=== PATIENT | male | born 1955 | race Caucasian/White ===

== ENCOUNTER → 2018-02-06 10:32 | Outpatient (CLI) | payer BC, SELFPAY ==
[2018-02-06 13:21] LABS: ALB/GLOB Ratio 0.8 RATIO (0.9-2.4); AST(SGOT) 22 U/L (15-37); Alanine Aminotransfer ALT/SGPT 34 U/L (16-61); Albumin, Serum 3.4 g/dL (3.2-5.0); Alkaline Phosphatase 41 U/L (45-117); Anion Gap 8 (5-15); BUN 18 mg/dL (7-18); BUN/Creat Ratio 19.1 RATIO (10-20); Calcium,Total 8.8 mg/dL (8.5-10.1); Chloride 102 mmol/L (98-107); Creatinine, Serum 0.94 mg/dL (0.70-1.30); EST Glomerular Filtration Rate 87 mL/min (>60); Est Glom Filt Rate - Afr Amer 105 mL/min (>60); Globulin 4.2 g/dL (2.2-4.2); Glucose 81 mg/dL (74-106); Potassium 4.1 mmol/L (3.5-5.1); Protein, Total 7.6 g/dL (6.4-8.2); Sodium Level 138 mmol/L (136-145)
== END ==
PROVIDERS: Family Provider Family Medicine; PCP Family Medicine
DX: I25.10 Atherosclerotic heart disease of native coronary artery without angina pectoris (principal); I25.2 Old myocardial infarction; I10 Essential (primary) hypertension; E78.5 Hyperlipidemia, unspecified; Z98.61 Coronary angioplasty status
CPT/HCPCS: 36415; 80053

== ENCOUNTER → 2021-02-02 11:15 | Outpatient (CLI) | payer BC, SELFPAY ==
[2021-01-31 14:38] VITALS: BMI 33.3
[2021-02-02 12:05] LABS: Absolute Lymphocyte Count 2.03 X10^3/uL (0.83-4.51); Absolute Neutrophil Count 2.5 X10^3/uL (2.0-7.7); Basophil# 0.03 X10^3/uL; Basophil% 0.6 % (0-1); Eosinophil# 0.17 X10^3/uL; Eosinophils% 3.1 % (0-5); Hematocrit 47.2 % (40-54); Hemoglobin 15.3 g/dL (13.0-16.5); Lymphocyte # 2.03 X10^3/ul (4.0); Lymphocyte % 37.4 % (19-41); Mean Corp Hgb Conc 32.4 g/dL (32-36); Mean Corpuscular Volume 95.5 fL (80-94); Mean Platelet Vol. 9.5 fl (6.2-12.0); Monocyte# 0.72 X10^3/uL; Monocyte% 13.3 % (0-10); NRBC Flagged by Analyzer 0 % (0-5); Neutrophil # 2.46 X10^3/uL (2.7-7.7); Neutrophil % 45.2 % (47-70); Platelet Count 218 K/mm3 (150-450); RBC Distribution Width CV 12.1 % (11.6-14.6); RBC Distribution Width SD 42.5 fl (35.1-43.9); Red Blood Count 4.94 M/mm3 (4.6-6.2); White Blood Count 5.4 K/mm3 (4.4-11.0)
[2021-02-02 12:31] LABS: AST(SGOT) 17 U/L (15-37); Alanine Aminotransfer ALT/SGPT 31 U/L (16-61); Albumin, Serum 3.4 g/dL (3.2-5.0); Alkaline Phosphatase 52 U/L (45-117); Anion Gap 3 (5-15); BUN 21 mg/dL (7-18); BUN/Creat Ratio 18.6 RATIO (10-20); Bilirubin, Direct 0.13 mg/dL (0.00-0.30); Chloride 108 mmol/L (98-107); Cholesterol 214 mg/dL (200); Creatinine, Serum 1.13 mg/dL (0.70-1.30); EST Glomerular Filtration Rate 69 mL/min (>60); Est Glom Filt Rate - Afr Amer 84 mL/min (>60); Globulin 4.3 g/dL (2.2-4.2); Glucose 80 mg/dL (74-106); High Density Lipoprotein 52 mg/dL; Potassium 3.9 mmol/L (3.5-5.1); Protein, Total 7.7 g/dL (6.4-8.2); Sodium Level 140 mmol/L (136-145); Thyroid Stim Hormone (TSH) 0.83 uIU/mL (0.358-3.74); Triglycerides 85 mg/dL; Very Low Density Lipoprotein 17 mg/dL (5-40)
== END ==
PROVIDERS: PCP Family Medicine; Referring Provider Internal Medicine Cardiovascular Disease; Visit Provider Internal Medicine Cardiovascular Disease
DX: E78.00 Pure hypercholesterolemia, unspecified (principal); I25.10 Atherosclerotic heart disease of native coronary artery without angina pectoris; I34.0 Nonrheumatic mitral (valve) insufficiency; I10 Essential (primary) hypertension; Z95.5 Presence of coronary angioplasty implant and graft
CPT/HCPCS: 36415; 80048; 80061; 80076; 84443; 85025

== ENCOUNTER → 2021-02-12 10:53 | Outpatient (CLI) | payer BC, SELFPAY ==
[2021-02-12 10:07] VITALS: BMI 33.0
--- NOTE | 2021-02-12 15:50 | RAD_ITS ---
STUDY: X-RAY CHEST REASON FOR EXAM: Male, 66 years old. pre-operative TECHNIQUE: Frontal and lateral views COMPARISON: None. FINDINGS: The lungs are clear and expanded. There is no demonstrated pleural abnormality. Normal size heart. Normal mediastinum and chanda. Normal visualized pulmonary arteries. Normal visualized aortic arch and descending thoracic aorta. Degenerative changes of the thoracic spine. Normal visualized ribs, clavicles, and shoulders. There is no demonstrated abnormality of the visualized soft tissue structures of the upper abdomen. RAD/Chest PA and Lateral IMPRESSION: Normal x-ray examination of the chest. Electronically Signed: Gage Zuñiga DO at 16:09 EDT Tel [phone], Service support ,
== END ==
PROVIDERS: PCP Family Medicine; Referring Provider Nurse Practitioner Family; Visit Provider Nurse Practitioner Family
DX: I25.10 Atherosclerotic heart disease of native coronary artery without angina pectoris (principal); R07.9 Chest pain, unspecified; Z95.5 Presence of coronary angioplasty implant and graft; I10 Essential (primary) hypertension; E78.00 Pure hypercholesterolemia, unspecified
CPT/HCPCS: 36415; 71046; 84484

== ENCOUNTER → 2021-02-15 10:41 | Outpatient (CLI) | payer BC, SELFPAY ==
[2021-01-31 14:38] VITALS: BMI 33.3
[2021-02-13 12:43] VITALS: BMI 33.0
--- NOTE | 2021-02-15 10:45 | ECHOCS_ITS ---
Reason For Study: CAD/ASHD Procedure This was a 2D Doppler, Color Flow transthoracic echocardiogram. The study was technically difficult. Exam performed in department. Left Ventricle Normal LV size. Left ventricular systolic function is normal. The estimated ejection fraction is 60 %. Stage 1 diastolic dysfunction. No regional wall motion abnormalities noted. Right Ventricle Normal RV size. Normal systolic function. Atria Normal left atrium. Normal right atrium. Mitral Valve Normal mitral valve. Tricuspid Valve Normal tricuspid valve. Mild (1+) tricuspid valve insufficiency. Pulmonary artery systolic pressure is 28 mmHg. Aortic Valve Normal aortic valve. Trisinus/trileaflet aortic valve. Mild (1+) eccentric aortic valve insufficiency. Pulmonic Valve Normal pulmonic valve. Great Vessels Normal aortic root. The pulmonary artery is normal size. Normal inferior vena cava. Pericardium/Pleural No pericardial effusion. Medication Diluted definity 3ml given slow IV push to enhance endocardial definition. MMode/2D Measurements & Calculations LVIDd: 4.5 cm IVSd: 0.81 cm Ao root diam: 3.2 cm LVIDs: 3.1 cm LVPWd: 0.83 cm RVDd: 3.3 cm FS: 31.5 % LAV(MOD-bp): 44.3 ml LVAd ap4: 36.8 cm2 SV(MOD-sp4): 79.0 ml LAV(MOD-bp) Indexed: 21.3 ml/m2 EDV(MOD-sp4): 130.5 ml LAV(MOD-sp2): 44.5 ml EDV(sp4-el): 136.1 ml LAV(MOD-sp4): 44.1 ml LVAs ap4: 20.5 cm2 ESV(MOD-sp4): 51.5 ml ESV(sp4-el): 53.1 ml EF(MOD-sp4): 60.5 % EF(sp4-el): 60.9 % SV(sp4-el): 82.9 ml LA A4 area: 16.3 cm2 LA dimension(2D): 3.5 cm RA A4 area: 13.4 cm2 Time Measurements MV dec time: 0.27 sec Doppler Measurements & Calculations MV E max aman: 64.6 cm/sec Lat Peak E' Aman: 10.8 cm/sec Med Peak E' Aman: 9.7 cm/sec MV A max aman: 75.6 cm/sec E/E' lat: 6.0 E/E' med: 6.7 MV E/A: 0.86 Ao V2 max: 133.6 cm/sec AI max aman: 369.6 cm/sec LV V1 max: 124.5 cm/sec Ao max P.1 mmHg AI max P.6 mmHg LV V1 max P.2 mmHg AI dec slope: 137.6 cm/sec2 AI P1/2t: 786.9 msec PA V2 max: 119.7 cm/sec TR max aman: 248.9 cm/sec TR max P.8 mmHg Interpretation Summary Normal LV size. Left ventricular systolic function is normal. The estimated ejection fraction is 60 %. Stage 1 diastolic dysfunction. Mild (1+) eccentric aortic valve insufficiency. Pulmonary artery systolic pressure is 28 mmHg. Contrast injection was performed. Ordering Physician: Jones Villegas Referring Physician: RONI PHELAN Performed By: Jennie Bass RDCS
--- NOTE | 2021-02-15 16:25 | STRESSREP_ITS ---
Stress Test Report Exercise myocardial perfusion stress test. 66-year-old man with a history of chest pain. Stress protocol: Resting EKG demonstrates normal sinus rhythm with a rate of 64 bpm normal intervals are noted resting blood pressure is 144/82 mmHg. The patient exercised according to the regular Angelo protocol for total duration of 7 minutes. Patient completed 1 minute into stage III of the Angelo protocol the maximum heart rate attained 151 bpm which was 96% of max impacted heart rate the maximum workload was 8.5 metabolic equivalents. At rest there were no ST or T wave changes noted to suggest ischemia at peak exercise 1.[address] changes were noted in lead II, V5 and V6. Approximately [address] changes were noted in lead III and aVF. The above were not diagnostic of ischemia. The patient however experienced chest discomfort on exertion. The above appeared to subside on discontinuation of the exercise. The peak blood pressure was 160/80 mmHg which was a good blood pressure response to exercise. Myocardial perfusion protocol. 14.4 mCi of technetium 99m sestamibi was injected at rest. The patient exer cised according to regular Nagelo protocol for 7 minutes and at peak exercise 44.6 mCi of technetium 99m sestamibi was injected stress images were obtained stress and rest images were reconstructed and compared in the short axis vertical long horizontal long axis. Gated images were also obtained Perfusion SPECT analysis: Review of the stress images demonstrate normal uptake of tracer noted in all areas of the myocardium except for the mid inferior wall with reduced perfusion. The resting images similarly demonstrate normal uptake of tracer noted in all areas of the myocardium with improvement in the mid inferior wall. The above is suggestive of mid inferior ischemia. Gated SPECT analysis: The gated ejection fraction is 63%. Conclusion: Exercise myocardial perfusion stress test with evidence of mid inferior ischemia at a moderate workload. Chest discomfort noted during exercise suggestive of angina. Preserved ejection fraction.
== END ==
PROVIDERS: PCP Family Medicine; Referring Provider Internal Medicine Cardiovascular Disease; Visit Provider Internal Medicine Cardiovascular Disease
DX: I25.10 Atherosclerotic heart disease of native coronary artery without angina pectoris (principal); I34.0 Nonrheumatic mitral (valve) insufficiency; E78.00 Pure hypercholesterolemia, unspecified; I10 Essential (primary) hypertension; Z95.5 Presence of coronary angioplasty implant and graft
CPT/HCPCS: 78452; 93017; 93306; A9500; Q9957; A4216; C8929

== ENCOUNTER 2021-02-21 07:24 | Day surgery (SDC) | payer BC, SELFPAY ==
[2021-02-12 10:07] VITALS: BMI 33.0
[2021-02-13 12:43] VITALS: BMI 33.0
--- NOTE | 2021-02-14 06:00 | HP_ITS ---
ADDENDUM by JEN Joseph on 02/12/21 at 1633 Addendum entered and electronically signed by JEN Lang NP 02/12/21 16:33: Patient's troponin was negative. Due to ongoing exertional chest pain and similar symptoms prior to PCI, he will proceed with left heart catheterization to assess further. HPI History of Present Illness Surgical H&P: Yes Assessment & Plan 1. Atherosclerosis of [place] coronary artery of [place] heart without angina pectoris I25.10 Plan - Bakari Joseph NP, [employer] GR[employer] TE[employer]ER-C Patient expresses concerns regarding symptoms similar to prior stenting. His EKG in office shows normal sinus rhythm at a rate of 62 beats minute, NJ interval 178, and QTc 419. There are no acute ST or T wave changes noted. He is also concerned that his stress test will not occur for approximately 2 weeks. He was asked undergo laboratory evaluation with troponin I to ensure stability. Based on results, further recommendation be made. Orders Orders: 12 Lead EKG performed by BMS Today Left Heart Cath/COR/LV Percut Today Troponin-I Today Chest PA and Lateral Today 2. Presence of stent in coronary artery Z95.5 PTCA/BMS to LXC , to distal RCA and to the instent restenosis of the mid RCA per cath 02/17/13; PTCA/BMS to the RCA 02/08/07 Plan - Bakari Joseph NP, [employer] GRADE TE[employer]ER-C He will continue current medical therapy which includes aspirin and lisinopril. He is not interested in alternative medication such as metoprolol or isosorbide to assist with chest pain. Orders Orders: Left Heart Cath/COR/LV Percut Today Troponin-I Today Chest PA and Lateral Today 3. Essential hypertension I10 Plan - Bakari Joseph NP, [employer] GRADE TE[employer]ER-C His blood pressure is slightly elevated today in office. Thus, on account of chest pain and elevated blood pressure it was recommend to begin isosorbide. He defers at this time. Orders Orders: Left Heart Cath/COR/LV Percut Today Chest PA and Lateral Today 4. Pure hypercholesterolemia E78.00 Plan - Bakari Joseph NP [employer] GR[employer] TE[employer]ER-C He is not on cholesterol-lowering medication. He will continue gfee-cwz-ggzorcc medication as well as risk factor and lifestyle modification. Orders Orders: Left Heart Cath/COR/LV Percut Today Chest PA and Lateral Today Plan Detail Other Orders Orders: 12 Lead EKG performed by BMS Today R07.9 Left Heart Cath/COR/LV Percut Today R07.9 Troponin-I Today R07.9 Chest PA and Lateral Today R07.9 Other Medications New: clopidogrel (Plavix) 75 mg PO QDAY 30 tabs 12RF Additional Comments - Bakari Joseph NP, [employer] GRADE TEACHER-C Thank you for allowing us to participate in the patients plan of care, if you have any questions please do not hesitate to call. This note was generated using a voice recognition system and there may be incorrect words, spelling or punctuation that were not noted when reviewing the office note prior to saving. 02/12/21 1633 <Electronically signed by Bakari Acevedo [employer] GRADE TEACHER-C> Date _ Bakari Joseph NP [employer] GRADE TE[employer]ER-C cc: Dr. Emanuel Rae MD ~* Signed HPI HPI History of Present Illness Details: This is a 66-year-old white male who presents today for outpatient cardiovascular consultation for concerns of symptoms concerning for angina pectoris superimposed upon a history of CAD and PCI, hyperlipidemia, and hypertension. He has undergone cardiovascular evaluation in the past. Based upon medical records obtained for review it appears that he underwent an exercise tolerance test on 07-16-2016. This was performed in [place], [place]. At that point time based upon the nuclear imaging study had suggested a subtle decrease in basal to mid inferolateral activity at rest and with stress suggestive of diaphragmatic attenuation with no significant fixed defects to suggest infarct and no significant reversible defects developing with stress to suggest inducible ischemia. He states yesterday and two days ago noting chest pain located on the left part of his chest with activity, but can also occur at rest. This pain resolved on its own. This lasted for a few hours. This pain does not radiate. He denies secondary symptoms. When this pain occurs he rates it a 5/10 at most. He denies such pain today. In general, these symptoms appear similar to prior stenting. He states yesterday after eating he noted center chest pain as he described at last office visit. He states a pressure feeling and taking his breath away near his throat. Pt denies arm, jaw, or neck discomfort. His exercise tolerance is reduced d/t symptoms/concerns. Pt denies symptoms of CHF, palpitations, lightheadedness, dizziness, near syncopal or syncopal episodes. Pt denies edema or claudication issues. Pt. denies orthopnea, PND, or myalgia. He states moments of dizziness. He states feeling more fatigue than usual that he feels is related to sleep issues. Intake Vital Signs 02/12/21 Height 5 ft 7 in 02/12/21 Weight: 211 lb 02/12/21 BMI 33.0 02/12/21 BP 138/85 H 02/12/21 Blood Pressure Location Lt brachial 02/12/21 Position Sitting 02/12/21 Respiration 18 02/12/21 Pulse 70 02/12/21 Pulse Source Monitor 02/12/21 Pulse Oximetry (%) 95 Intake Visit Reasons: CHEST PAIN, hx stents [employer] Required: No Accompanied by: None Is patient in pain?: No Allergies niacin Adverse Reaction (Severe, Verified 02/12/21 09:55) Hyperpigmentation Jyacpxz-Dsi-Mok Reductase Inhibitor Adverse Reaction (Severe, Verified 02/12/21 09:55) Aches prednisone Adverse Reaction (Unknown, Verified 02/12/21 09:55) Fast HR Medications aspirin 81 mg tablet,delayed release 81 mg PO DAILY 01/29/21 [History Confirmed 02/12/21] cholecalciferol (vitamin D3) 125 mcg (5,000 unit) tablet 125 mcg PO DAILY 01/31/21 [History Confirmed 02/12/21] garlic 5,000 mcg tablet 5 mg PO DAILY 01/31/21 [History Confirmed 02/12/21] lisinopril 10 mg tablet 10 mg PO DAILY #90 tab 01/31/21 [Rx Confirmed 02/12/21] magnesium oxide 500 mg tablet 500 mg PO BID 01/31/21 [History Confirmed 02/12/21] turmeric root extract 1,053 mg tablet 1,076 mg PO BID tab 01/31/21 [History Confirmed 02/12/21] vit C 65 mg-D3 3.15 mcg-vit E 3.35 mg-zinc 1 mg-elderberry chew tablet 1 tab PO .3xw tab 01/31/21 [History Confirmed 02/12/21] [facility] Medical History (Updated 01/31/21 @ 15:[address] Jones Villegas MD) Non-rheumatic mitral regurgitation (Acute) Presence of stent in coronary artery (Chronic) Old myocardial infarction (Acute) Pure hypercholesterolemia (Chronic) Essential hypertension (Chronic) Atherosclerotic heart disease of [place] coronary artery without angina pectoris (Chronic) Surgical History Presence of coronary angioplasty implant and graft (Chronic ~02/17/13) History of umbilical hernia repair (Resolved) S/P left inguinal herniorrhaphy (Resolved ~02/17/13) Family History Uncle CAD (coronary artery disease) Uncle CAD (coronary artery disease) Social History (Updated 02/12/21 @ 12:42 by Bakari Joseph THIRD GRADE TEACHER, [employer]ADE TEACHER-C) Smoking Status: Never smoker alcohol intake: never substance use type: does not use caffeine: Yes ROS Const Const: Positive for fatigue; negative for weakness, body ache, fever(s) or chills ENT ENT: Positive for dizziness Cardio Chest Pain: Yes Palpitations: No Edema: None Muscle aches with walking: None Resp Respiratory: Negative for SOB with activity, SOB at rest, SOB orthopnea\SOB lying down or paroxysmal nocturnal dyspnea GI GI: Negative nausea, vomiting blood/hematemesis, bright, red blood in stools or black,tarry stools : Negative for hematuria or frequent nighttime urination/ nocturia Musc Musc: Negative for muscle aches/ myalgia Skin Skin: Negative non-healing lesions or rash Neuro Neuro: Positive for dizziness; negative for lightheadedness, near syncope, syncope, orthostatic symptoms or weakness Endo Endo: Positive for fatigue Allergy Allergy/Immunology: Negative for rash Cardiology Exam Const Appearance: cooperative, healthy appearing, comfortable and no acute distress Nutritional Appearance: well nourished and obese Orientation: alert, awake and oriented x3 Head Head: normal to inspection Ears: hearing grossly normal bilaterally Nose: external nose normal Face and Sinus: face symmetric Mouth: oral mucosae normal Eyes General: appearance normal, both eyes and all related structures Eyelids: eyelids normal EOM: EOM intact bilaterally Neck Neck: normal visual inspection and no JVD Carotids: normal carotid upstroke Chest Chest inspection: normal inspection of the chest, symmetric chest movement and normal respiratory effort; negative cough Auscultation: Bilateral: Clear to Auscultation Cardio Rate: regular rate Rhythm: regular rhythm Heart sounds: S1 normal and S2 normal; negative rub, gallop or murmur GI GI: normal to inspection and obese Neuro General: alert, awake, oriented x3 and CN's II-XI intact bilaterally Skin Skin: no rashes or lesions noted Extremities Pulses: Normal: Right Posterior Tibial Pulse, Left Posterior Tibial Pulse, Right Radial Pulse, Left Radial Pulse Lower Extremity Edema: None: Bilateral Psych Psychological: normal affect Assessment & Plan 1. Atherosclerosis of [place] coronary artery of [place] heart without angina pectoris I25.10 Plan Patient expresses concerns regarding symptoms similar to prior stenting. His EKG in office shows normal sinus rhythm at a rate of 62 beats minute, NJ interval 178, and QTc 419. There are no acute ST or T wave changes noted. He is also concerned that his stress test will not occur for approximately 2 weeks. He was asked undergo laboratory evaluation with troponin I to ensure stability. Based on results, further recommendation be made. Orders Orders: 12 Lead EKG performed by BMS Today Troponin-I Today 2. Presence of stent in coronary artery Z95.5 PTCA/BMS to LXC , to distal RCA and to the instent restenosis of the mid RCA per cath 02/17/13; PTCA/BMS to the RCA 02/08/07 Plan He will continue current medical therapy which includes aspirin and lisinopril. He is not interested in alternative medication such as metoprolol or isosorbide to assist with chest pain. Orders Orders: Troponin-I Today 3. Essential hypertension I10 Plan His blood pressure is slightly elevated today in office. Thus, on account of chest pain and elevated blood pressure it was recommend to begin isosorbide. He defers at this time. 4. Pure hypercholesterolemia E78.00 Plan He is not on cholesterol-lowering medication. He will continue knim-sya-otkirsg medication as well as risk factor and lifestyle modification. Plan Detail Other Orders Orders: 12 Lead EKG performed by BMS Today R07.9 Troponin-I Today R07.9 Additional Comments Thank you for allowing us to participate in the patients plan of care, if you have any questions please do not hesitate to call. This note was generated using a voice recognition system and there may be incorrect words, spelling or punctuation that were not noted when reviewing the office note prior to saving. Coding Level of Care Code Off vis,est,level 4 Diagnoses Atherosclerosis of [place] coronary artery of [place] heart without angina pectoris I25.10 ??[place] vs. transplanted heart: [place] heart Presence of stent in coronary artery Z95.5 Essential hypertension I10 Pure hypercholesterolemia E78.00 Coding Level of Care Code Off vis,est,level 4 Diagnoses Atherosclerosis of [place] coronary artery of [place] heart without angina pectoris I25.10 ??[place] vs. transplanted heart: [place] heart Presence of stent in coronary artery Z95.5 Essential hypertension I10 Pure hypercholesterolemia E78.00 Supplemental Info Supplemental Information It appears that he has undergone invasive evaluation and care as well in the past. On 02-17-2013 he had a cardiac catheterization/PCI procedure performed at [facility] in [place], [place]. According the report the left main coronary is normal. The LAD had mild luminal irregularities. The LCx had mild tubular narrowing of 70% stenosis and somewhat diffuse disease in the midportion. The RCA had a mid stent with diffuse in-stent restenosis of 60% and a distal stent with 70% stenosis and a PDA with ostial 60 to 70% stenosis. The patient apparently proceeded to what was referred to his left coronary artery stenting with a 3.0x31 Promus medicated stent to the LCx system. He also underwent PTCA/stent with a 2.75 x16 mm Promus element stent to the distal RCA followed by a 3.0 x 24 mm Promus element stent to the mid RCA. Apparently he had remote stenting as well in the past in January 2007 at [facility] with a bare-metal stent to the RCA system. Based upon previous echocardiogram report available for review from 2008 from [facility] the left ventricle was normal with an LVEF of 60%. Labs LDL Cholesterol 145 mg/dL (0-130) H 02/02/21 HDL Cholesterol 52 mg/dL (40-) 02/02/21 Triglycerides 85 mg/dL (-199) 02/02/21 VLDL Cholesterol 17 mg/dL (5-40) 02/02/21 Diagnostics Electrocardiogram 02/12/21
--- NOTE | 2021-02-21 06:00 | HP_ITS ---
ADDENDUM by JEN Joseph on 02/12/21 at 1633 Addendum entered and electronically signed by JEN Lang NP 02/12/21 16:33: Patient's troponin was negative. Due to ongoing exertional chest pain and similar symptoms prior to PCI, he will proceed with left heart catheterization to assess further. HPI History of Present Illness Surgical H&P: Yes Assessment & Plan 1. Atherosclerosis of [place] coronary artery of [place] heart without angina pectoris I25.10 Plan - Bakari Joseph NP, BUSINESS ADMINISTRATION PROGRAM CHAIR-C Patient expresses concerns regarding symptoms similar to prior stenting. His EKG in office shows normal sinus rhythm at a rate of 62 beats minute, MS interval 178, and QTc 419. There are no acute ST or T wave changes noted. He is also concerned that his stress test will not occur for approximately 2 weeks. He was asked undergo laboratory evaluation with troponin I to ensure stability. Based on results, further recommendation be made. Orders Orders: 12 Lead EKG performed by BMS Today Left Heart Cath/COR/LV Percut Today Troponin-I Today Chest PA and Lateral Today 2. Presence of stent in coronary artery Z95.5 PTCA/BMS to LXC , to distal RCA and to the instent restenosis of the mid RCA per cath 02/17/13; PTCA/BMS to the RCA 02/08/07 Plan - Bakari Joseph NP, BUSINESS ADMINISTRATION PROGRAM CHAIR-C He will continue current medical therapy which includes aspirin and lisinopril. He is not interested in alternative medication such as metoprolol or isosorbide to assist with chest pain. Orders Orders: Left Heart Cath/COR/LV Percut Today Troponin-I Today Chest PA and Lateral Today 3. Essential hypertension I10 Plan - Bakari Joseph NP, BUSINESS ADMINISTRATION PROGRAM CHAIR-C His blood pressure is slightly elevated today in office. Thus, on account of chest pain and elevated blood pressure it was recommend to begin isosorbide. He defers at this time. Orders Orders: Left Heart Cath/COR/LV Percut Today Chest PA and Lateral Today 4. Pure hypercholesterolemia E78.00 Plan - Bakari Joseph NP BUSINESS ADMINISTRATION PROGRAM CHAIR-C He is not on cholesterol-lowering medication. He will continue eqqg-smf-gbjaued medication as well as risk factor and lifestyle modification. Orders Orders: Left Heart Cath/COR/LV Percut Today Chest PA and Lateral Today Plan Detail Other Orders Orders: 12 Lead EKG performed by BMS Today R07.9 Left Heart Cath/COR/LV Percut Today R07.9 Troponin-I Today R07.9 Chest PA and Lateral Today R07.9 Other Medications New: clopidogrel (Plavix) 75 mg PO QDAY 30 tabs 12RF Additional Comments - Bakari Joseph NP, BUSINESS ADMINISTRATION PROGRAM CHAIR-C Thank you for allowing us to participate in the patients plan of care, if you have any questions please do not hesitate to call. This note was generated using a voice recognition system and there may be incorrect words, spelling or punctuation that were not noted when reviewing the office note prior to saving. 02/12/21 1633 <Electronically signed by aBkari Acevedo BUSINESS ADMINISTRATION PROGRAM CHAIR-C> Date _ Bakari Joseph NP BUSINESS ADMINISTRATION PROGRAM CHAIR-C cc: Dr. Emanuel Rae MD ~* Signed HPI HPI History of Present Illness Details: This is a 66-year-old white male who presents today for outpatient cardiovascular consultation for concerns of symptoms concerning for angina pectoris superimposed upon a history of CAD and PCI, hyperlipidemia, and hypertension. He has undergone cardiovascular evaluation in the past. Based upon medical records obtained for review it appears that he underwent an exercise tolerance test on 07-16-2016. This was performed in [place], [place]. At that point time based upon the nuclear imaging study had suggested a subtle decrease in basal to mid inferolateral activity at rest and with stress suggestive of diaphragmatic attenuation with no significant fixed defects to suggest infarct and no significant reversible defects developing with stress to suggest inducible ischemia. He states yesterday and two days ago noting chest pain located on the left part of his chest with activity, but can also occur at rest. This pain resolved on its own. This lasted for a few hours. This pain does not radiate. He denies secondary symptoms. When this pain occurs he rates it a 5/10 at most. He denies such pain today. In general, these symptoms appear similar to prior stenting. He states yesterday after eating he noted center chest pain as he described at last office visit. He states a pressure feeling and taking his breath away near his throat. Pt denies arm, jaw, or neck discomfort. His exercise tolerance is reduced d/t symptoms/concerns. Pt denies symptoms of CHF, palpitations, lightheadedness, dizziness, near syncopal or syncopal episodes. Pt denies edema or claudication issues. Pt. denies orthopnea, PND, or myalgia. He states moments of dizziness. He states feeling more fatigue than usual that he feels is related to sleep issues. Intake Vital Signs 02/12/21 Height 5 ft 7 in 02/12/21 Weight: 211 lb 02/12/21 BMI 33.0 02/12/21 BP 138/85 H 02/12/21 Blood Pressure Location Lt brachial 02/12/21 Position Sitting 02/12/21 Respiration 18 02/12/21 Pulse 70 02/12/21 Pulse Source Monitor 02/12/21 Pulse Oximetry (%) 95 Intake Visit Reasons: CHEST PAIN, hx stents Betsy [employer] Molder Required: No Accompanied by: None Is patient in pain?: No Allergies niacin Adverse Reaction (Severe, Verified 02/12/21 09:55) Hyperpigmentation Kyujacl-Csw-Yjv Reductase Inhibitor Adverse Reaction (Severe, Verified 02/12/21 09:55) Aches prednisone Adverse Reaction (Unknown, Verified 02/12/21 09:55) Fast HR Medications aspirin 81 mg tablet,delayed release 81 mg PO DAILY 01/29/21 [History Confirmed 02/12/21] cholecalciferol (vitamin D3) 125 mcg (5,000 unit) tablet 125 mcg PO DAILY 01/31/21 [History Confirmed 02/12/21] garlic 5,000 mcg tablet 5 mg PO DAILY 01/31/21 [History Confirmed 02/12/21] lisinopril 10 mg tablet 10 mg PO DAILY #90 tab 01/31/21 [Rx Confirmed 02/12/21] magnesium oxide 500 mg tablet 500 mg PO BID 01/31/21 [History Confirmed 02/12/21] turmeric root extract 1,053 mg tablet 1,076 mg PO BID tab 01/31/21 [History Confirmed 02/12/21] vit C 65 mg-D3 3.15 mcg-vit E 3.35 mg-zinc 1 mg-elderberry chew tablet 1 tab PO .3xw tab 01/31/21 [History Confirmed 02/12/21] [facility] Medical History (Updated 01/31/21 @ 15:[address] Jones Villegas MD) Non-rheumatic mitral regurgitation (Acute) Presence of stent in coronary artery (Chronic) Old myocardial infarction (Acute) Pure hypercholesterolemia (Chronic) Essential hypertension (Chronic) Atherosclerotic heart disease of [place] coronary artery without angina pectoris (Chronic) Surgical History Presence of coronary angioplasty implant and graft (Chronic ~02/17/13) History of umbilical hernia repair (Resolved) S/P left inguinal herniorrhaphy (Resolved ~02/17/13) Family History Uncle CAD (coronary artery disease) Uncle CAD (coronary artery disease) Social History (Updated 02/12/21 @ 12:42 by Bakari Joseph BUSINESS ADMINISTRATION PROGRAM CHAIR, BUSINESS ADMINISTRATION PROGRAM CHAIR-C) Smoking Status: Never smoker alcohol intake: never substance use type: does not use caffeine: Yes ROS Const Const: Positive for fatigue; negative for weakness, body ache, fever(s) or chills ENT ENT: Positive for dizziness Cardio Chest Pain: Yes Palpitations: No Edema: None Muscle aches with walking: None Resp Respiratory: Negative for SOB with activity, SOB at rest, SOB orthopnea\SOB lying down or paroxysmal nocturnal dyspnea GI GI: Negative nausea, vomiting blood/hematemesis, bright, red blood in stools or black,tarry stools : Negative for hematuria or frequent nighttime urination/ nocturia Musc Musc: Negative for muscle aches/ myalgia Skin Skin: Negative non-healing lesions or rash Neuro Neuro: Positive for dizziness; negative for lightheadedness, near syncope, syncope, orthostatic symptoms or weakness Endo Endo: Positive for fatigue Allergy Allergy/Immunology: Negative for rash Cardiology Exam Const Appearance: cooperative, healthy appearing, comfortable and no acute distress Nutritional Appearance: well nourished and obese Orientation: alert, awake and oriented x3 Head Head: normal to inspection Ears: hearing grossly normal bilaterally Nose: external nose normal Face and Sinus: face symmetric Mouth: oral mucosae normal Eyes General: appearance normal, both eyes and all related structures Eyelids: eyelids normal EOM: EOM intact bilaterally Neck Neck: normal visual inspection and no JVD Carotids: normal carotid upstroke Chest Chest inspection: normal inspection of the chest, symmetric chest movement and normal respiratory effort; negative cough Auscultation: Bilateral: Clear to Auscultation Cardio Rate: regular rate Rhythm: regular rhythm Heart sounds: S1 normal and S2 normal; negative rub, gallop or murmur GI GI: normal to inspection and obese Neuro General: alert, awake, oriented x3 and CN's II-XI intact bilaterally Skin Skin: no rashes or lesions noted Extremities Pulses: Normal: Right Posterior Tibial Pulse, Left Posterior Tibial Pulse, Right Radial Pulse, Left Radial Pulse Lower Extremity Edema: None: Bilateral Psych Psychological: normal affect Assessment & Plan 1. Atherosclerosis of [place] coronary artery of [place] heart without angina pectoris I25.10 Plan Patient expresses concerns regarding symptoms similar to prior stenting. His EKG in office shows normal sinus rhythm at a rate of 62 beats minute, MS interval 178, and QTc 419. There are no acute ST or T wave changes noted. He is also concerned that his stress test will not occur for approximately 2 weeks. He was asked undergo laboratory evaluation with troponin I to ensure stability. Based on results, further recommendation be made. Orders Orders: 12 Lead EKG performed by BMS Today Troponin-I Today 2. Presence of stent in coronary artery Z95.5 PTCA/BMS to LXC , to distal RCA and to the instent restenosis of the mid RCA per cath 02/17/13; PTCA/BMS to the RCA 02/08/07 Plan He will continue current medical therapy which includes aspirin and lisinopril. He is not interested in alternative medication such as metoprolol or isosorbide to assist with chest pain. Orders Orders: Troponin-I Today 3. Essential hypertension I10 Plan His blood pressure is slightly elevated today in office. Thus, on account of chest pain and elevated blood pressure it was recommend to begin isosorbide. He defers at this time. 4. Pure hypercholesterolemia E78.00 Plan He is not on cholesterol-lowering medication. He will continue xjca-xuc-xjlgwbh medication as well as risk factor and lifestyle modification. Plan Detail Other Orders Orders: 12 Lead EKG performed by BMS Today R07.9 Troponin-I Today R07.9 Additional Comments Thank you for allowing us to participate in the patients plan of care, if you have any questions please do not hesitate to call. This note was generated using a voice recognition system and there may be incorrect words, spelling or punctuation that were not noted when reviewing the office note prior to saving. Coding Level of Care Code Off vis,est,level 4 Diagnoses Atherosclerosis of [place] coronary artery of [place] heart without angina pectoris I25.10 ??[place] vs. transplanted heart: [place] heart Presence of stent in coronary artery Z95.5 Essential hypertension I10 Pure hypercholesterolemia E78.00 Coding Level of Care Code Off vis,est,level 4 Diagnoses Atherosclerosis of [place] coronary artery of [place] heart without angina pectoris I25.10 ??[place] vs. transplanted heart: [place] heart Presence of stent in coronary artery Z95.5 Essential hypertension I10 Pure hypercholesterolemia E78.00 Supplemental Info Supplemental Information It appears that he has undergone invasive evaluation and care as well in the past. On 02-17-2013 he had a cardiac catheterization/PCI procedure performed at [facility] in [place], [place]. According the report the left main coronary is normal. The LAD had mild luminal irregularities. The LCx had mild tubular narrowing of 70% stenosis and somewhat diffuse disease in the midportion. The RCA had a mid stent with diffuse in-stent restenosis of 60% and a distal stent with 70% stenosis and a PDA with ostial 60 to 70% stenosis. The patient apparently proceeded to what was referred to his left coronary artery stenting with a 3.0x31 Promus medicated stent to the LCx system. He also underwent PTCA/stent with a 2.75 x16 mm Promus element stent to the distal RCA followed by a 3.0 x 24 mm Promus element stent to the mid RCA. Apparently he had remote stenting as well in the past in January [address] [facility] with a bare-metal stent to the RCA system. Based upon previous echocardiogram report available for review from [address] [facility] the left ventricle was normal with an LVEF of 60%. Labs LDL Cholesterol 145 mg/dL (0-130) H 02/02/21 HDL Cholesterol 52 mg/dL (40-) 02/02/21 Triglycerides 85 mg/dL (-199) 02/02/21 VLDL Cholesterol 17 mg/dL (5-40) 02/02/21 Diagnostics Electrocardiogram 02/12/21
--- NOTE | 2021-02-21 10:10 | CL.D_ITS ---
Patient Name: SERGIO JOSEPH Study Date: 02/21/2021 Performing: Ritesh Read MD Ht: 66.92 inches 170 cm : 1955 Wt: 211.64 lbs 96 kg Age: 66 Gender: male BSA: 2.07 PROCEDURE(S) PERFORMED [id number]/[facility] CLINICAL PROFILE AND INDICATIONS Indications: Worsening Angina Heart Failure: None Stress/Imaging Date: 02/15/21ress Test with SPECT MPI: Positive Intermediate Risk CAD Presentations: Unstable angina. CONCLUSIONS Severe distal left main coronary artery disease, previously placed stent in the circumflex artery pat ent, previously placed stent in the right coronary artery with severe in-stent stenosis. RECOMMENDATIONS Surgery consult for coronary revascularization DESCRIPTION OF PROCEDURE The patient arrived to the procedure lab. The risks and benefits of the procedure as well as a full d escription of our services here and current unavailability of surgical backup were fully explained to the patient and/or their significant other prior to the catheterization. The Timeout was completed, verifying the correct patient and procedure. The patient's procedural site was prepped and draped in the usual fashion. Local anesthetic was given subcutaneously to right radial region with Lidocaine 2% . Using a modified Seldinger technique, arterial access was obtained via the right radial artery, a 6 Fr sheath was inserted. Left Coronary Artery selective angiography was performed in multiple views u sing a 5 Fr. 4.0 [place] catheter. Right Coronary Artery selective angiography was then performed in mu ltiple views using a 5 Fr. 4.0 [place] catheter.The arterial sheath was pulled and a TR Band was applie d for hemostasis. 12cc of air CORONARY ANGIOGRAPHY DOMINANCE: Right Dominant LEFT HEART ASSESSMENT Left Ventricular Ejection Fraction: by Echo pending % Normal Left Ventricular systolic function LEFT MAIN: Distal 95% LEFT ANTERIOR DESCENDING ARTERY: Mild luminal irregularities less than 30% CIRCUMFLEX ARTERY: No significant disease noted MID CIRC: Previously placed stent is patent RIGHT CORONARY ARTERY: PROX RCA: Instent restenosis 90 long % COMPLICATIONS No Complications PROCEDURE MEDICATIONS Fentanyl 50 mcg IV Versed 1 mg IV Oxygen: 2 L/min via nasal cannula Heparin diluted in 23cc Heparinized saline. Patient given 10cc IA of this solution. 02/21/2021 09:46: 29 Verapamil 2.5mg, Ntg 100mcgs, 2000 units of Heparin diluted in 23cc Heparinized saline. Patient give n 10cc IA of this solution. 02/21/2021 09:46:29 SUMMARY OF HEMODYNAMIC DATA Time AIR REST ECG 07:48:16 AO 117/83 (98) SA 09:51:34 Signed By Ritesh Read MD On 02/21/2021 10:09:28 Ritesh Read MD
== END 2021-02-21 12:25 | disposition short-term general hospital (02) ==
LOC: CLSP 07:26
PROVIDERS: PCP Family Medicine; Referring Provider Internal Medicine Cardiovascular Disease; Visit Provider Internal Medicine Cardiovascular Disease
DX: I25.110 Atherosclerotic heart disease of native coronary artery with unstable angina pectoris (principal); T82.855A Stenosis of coronary artery stent, initial encounter; Y71.8 Miscellaneous cardiovascular devices associated with adverse incidents, not elsewhere classified; I10 Essential (primary) hypertension; E78.00 Pure hypercholesterolemia, unspecified; Z79.899 Other long term (current) drug therapy; Z79.82 Long term (current) use of aspirin; Z79.02 Long term (current) use of antithrombotics/antiplatelets; I25.2 Old myocardial infarction
CPT/HCPCS: 93308; 93454; 99152; 99153; J7040; Q9957; A4216; C1769; C1894; C8924

== ENCOUNTER → 2021-06-04 09:35 | Outpatient (CLI) | payer BC, SELFPAY ==
[2021-05-28 11:09] VITALS: BMI 32.1
[2021-06-04 11:00] LABS: Absolute Lymphocyte Count 1.67 X10^3/uL (0.83-4.51); Absolute Neutrophil Count 2.2 X10^3/uL (2.0-7.7); Basophil# 0.03 X10^3/uL; Basophil% 0.6 % (0-1); Eosinophil# 0.31 X10^3/uL; Eosinophils% 6.3 % (0-5); Hemoglobin 14.2 g/dL (13.0-16.5); Lymphocyte # 1.67 X10^3/ul (0.83-4.51); Lymphocyte % 33.7 % (19-41); Mean Corpuscular Hgb 29.5 pg (27.0-32.0); Mean Corpuscular Volume 89.4 fL (80-94); Mean Platelet Vol. 9.4 fl (6.2-12.0); Monocyte% 14.1 % (0-10); NRBC Flagged by Analyzer 0 % (0-5); Neutrophil # 2.24 X10^3/uL (2.7-7.7); Neutrophil % 45.1 % (47-70); Platelet Count 210 K/mm3 (150-450); RBC Distribution Width CV 12.7 % (11.6-14.6); RBC Distribution Width SD 41.9 fl (35.1-43.9); Red Blood Count 4.81 M/mm3 (4.6-6.2)
[2021-06-04 11:09] LABS: Prothrombin Time (Protime)PT. 12.6 SECONDS (11.7-14.9)
[2021-06-04 11:35] LABS: AST(SGOT) 20 U/L (15-37); Alanine Aminotransfer ALT/SGPT 23 U/L (16-61); Albumin, Serum 3.4 g/dL (3.2-5.0); Alkaline Phosphatase 56 U/L (45-117); Anion Gap 5 (5-15); BUN 11 mg/dL (7-18); BUN/Creat Ratio 10.8 RATIO (10-20); Bilirubin, Direct 0.08 mg/dL (0.00-0.30); Chloride 106 mmol/L (98-107); Cholesterol 184 mg/dL (200); Creatinine, Serum 1.02 mg/dL (0.70-1.30); EST Glomerular Filtration Rate 78 mL/min (>60); Est Glom Filt Rate - Afr Amer 95 mL/min (>60); Globulin 4.2 g/dL (2.2-4.2); Glucose 83 mg/dL (74-106); High Density Lipoprotein 56 mg/dL; Protein, Total 7.6 g/dL (6.4-8.2); Sodium Level 136 mmol/L (136-145); Triglycerides 109 mg/dL; Very Low Density Lipoprotein 22 mg/dL (5-40)
== END ==
PROVIDERS: PCP Family Medicine; Referring Provider Internal Medicine Cardiovascular Disease; Visit Provider Internal Medicine Cardiovascular Disease
DX: I35.1 Nonrheumatic aortic (valve) insufficiency (principal); E78.00 Pure hypercholesterolemia, unspecified; I10 Essential (primary) hypertension; R07.9 Chest pain, unspecified; R53.83 Other fatigue; Z95.1 Presence of aortocoronary bypass graft; Z95.5 Presence of coronary angioplasty implant and graft
CPT/HCPCS: 36415; 80048; 80061; 80076; 85025; 85610; 85730

== ENCOUNTER 2021-06-12 06:52 | Day surgery (SDC) | payer BC, SELFPAY ==
[2021-05-28 11:09] VITALS: BMI 32.1
[2021-06-11 09:52] VITALS: BMI 31.6
--- NOTE | 2021-06-11 17:31 | PCM.HP.BLA ---
History and Physical Date of Admission: 06/12/21 [facility] [id number] [place], [place] [phone] OFFICE VISITDate of Service: 05/28/21 MR#:[id number]:[id number]: SERGIO JOSEPHRep #:[id number] Provider: JEN Taylor RoofAge/Sex: 66/M [facility]Signed HPI HPI History of Present Illness Details: This is a 66-year-old white male who presents today for outpatient cardiovascular consultation for concerns of symptoms concerning for angina pectoris superimposed upon a history of CAD, CABG, PCI, hyperlipidemia, hypertension, and CARMEN[place]A with CPAP therapy. He underwent coronary artery bypass grafting x3 on 02/27/2021 with GOMEZ to LAD and Sequential SVG-OM2 and RPDA. His heart catheterization on 02/01/2021 prior to bypass surgery showed severe distal left main coronary artery disease, previously placed stent in the circumflex artery patent, previously placed stent in the right coronary artery with severe in-stent stenosis. Patient states that the first 2 months after bypass surgery he was doing very well. His exercise level was increasing and he was not have any chest discomfort. However, over the last month he notes center chest pain, left-sided chest pain, shoulder blade pain, and axillary pain that radiates into his left upper arm. His overall exercise capacity is reduced. He also notes that his energy level feels reduced. He does acknowledge that his chest discomfort is worse with activity and feels similar prior to bypass surgery, but not as intense. He also acknowledges sleeping with his hands above his head one night and since such time frame has noted tenderness to his left side chest and shoulder blade. He does acknowledge increase in outside yard work. He denies any significant shortness of breath with activity. He does acknowledge short lasting palpitations that he states takes his breath away. He does acknowledge ongoing lightheadedness, dizziness, and presyncope, which are not new or worsening. Intake Vital Signs 05/28/21 11:04 05/28/21 11:09 Height 5 ft 7 in Weight: 202 lb BMI 31.6 32.1 BP 124/76 H Blood Pressure Location Lt brachial Position Sitting Respiration 18 Pulse 65 Pulse Oximetry (%) 98 Intake Visit Reasons: Per JR + PFM :chest pain post CABG Betsy Database Design Analyst Required: No Is patient in pain?: No Allergies niacin Adverse Reaction (Severe, Verified 05/28/21 11:03) Hyperpigmentation Akszals-Lpa-Jrh Reductase Inhibitor Adverse Reaction (Severe, Verified 05/28/21 11:03) Aches prednisone Adverse Reaction (Unknown, Verified 05/28/21 11:03) Fast HR Medications aspirin 81 mg tablet,delayed release 81 mg PO DAILY 01/29/21 [History Confirmed 05/28/21] clopidogrel 75 mg tablet 75 mg PO QDAY #30 tab 02/12/21 [Rx Confirmed 05/28/21] lisinopril 2.5 mg tablet 2.5 mg PO DAILY 03/04/21 [History Confirmed 05/28/21] rosuvastatin 5 mg tablet 5 mg PO DAILY 03/04/21 [History Confirmed 05/28/21] isosorbide mononitrate 30 mg tablet,extended release 24 hr 30 mg PO DAILY #30 tab 05/27/21 [Rx] cholecalciferol (vitamin D3) 10 mcg (400 unit) capsule 10 mcg PO DAILY 05/28/21 [History Confirmed 05/28/21] PFSH Medical History Atherosclerotic heart disease of [place] coronary artery without angina pectoris Essential hypertension Non-rheumatic mitral regurgitation Pure hypercholesterolemia Surgical History H/O coronary artery bypass surgery (02/27/21) History of coronary artery stent placement (02/17/13) History of herniorrhaphy History of left heart catheterization (LHC) (02/21/21) History of umbilical hernia repair Family History Uncle CAD (coronary artery disease) Uncle CAD (coronary artery disease) Social History Smoking Status: Never smoker alcohol intake: never substance use type: does not use caffeine: Yes ROS Const Const: Positive for fatigue; Negative for weakness, body ache, fever(s) or chills ENT ENT: Positive for dizziness; Negative for Nosebleed/epistaxis Cardio Chest Pain: Yes Palpitations: Yes Edema: None Muscle aches with walking: None Resp Respiratory: Positive for SOB with activity; Negative for SOB at rest, SOB orthopnea\SOB lying down, Cough or paroxysmal nocturnal dyspnea GI GI: Negative nausea, vomiting blood/hematemesis, bright, red blood in stools or black,tarry stools : Negative for hematuria or frequent nighttime urination/ nocturia Musc Musc: Negative for muscle aches/ myalgia Skin Skin: Negative non-healing lesions or rash Neuro Neuro: Positive for dizziness, lightheadedness and near syncope; Negative for syncope, orthostatic symptoms or weakness Endo Endo: Positive for fatigue Allergy Allergy/Immunology: Negative for rash Cardiology Exam Const Appearance: cooperative, healthy appearing, comfortable and no acute distress Nutritional Appearance: average body habitus and well nourished Orientation: alert, awake and oriented x3 Head Head: normal to inspection Ears: hearing grossly normal bilaterally Nose: external nose normal Face and Sinus: face symmetric Mouth: oral mucosae normal Eyes General: appearance normal, both eyes and all related structures Eyelids: eyelids normal EOM: EOM intact bilaterally Neck Neck: normal visual inspection and no JVD Carotids: normal carotid upstroke Chest Chest inspection: normal inspection of the chest, symmetric chest movement, midline sternotomy incision, tenderness (Left chest and left shoulder blade) and normal respiratory effort; Negative cough Auscultation: Bilateral: Clear to Auscultation Cardio Rate: regular rate Rhythm: regular rhythm Heart sounds: S1 normal and S2 normal; Negative rub, gallop or murmur GI GI: normal to inspection Neuro General: patient alert, patient awake, patient oriented x3 and CN's II-XI intact bilaterally Skin Skin: no rashes or lesions noted Extremities Pulses: Normal: Right Posterior Tibial Pulse, Left Posterior Tibial Pulse, Right Radial Pulse and Left Radial Pulse Lower Extremity Edema: None: Bilateral Psych Psychological: normal affect Assessment and Plan Assessment and Plan (1) Atherosclerotic heart disease of [place] coronary artery without angina pectoris: Status: Chronic Qualifiers: [place] vs. transplanted heart: [place] heart Qualified Code(s): I25.10 - Atherosclerotic heart disease of [place] coronary artery without angina pectoris Orders: Orders: 12 Lead EKG performed by SITA 05/28/21 Plan - Bakari Joseph CELLOPHANE WRAPPING EXAMINER, CELLOPHANE WRAPPING EXAMINER-C: Patient symptom has typical and atypical features of coronary artery disease. Of concern is that his symptoms appear to be worsening, are worse with exertion, and are similar as to prior to bypass. On account of such concerns, he was asked to undergo a heart catheterization to rule out coronary artery disease component/graft failure as a source of his symptoms. (2) H/O coronary artery bypass surgery: Status: Resolved Comment: CABG x 3: GOMEZ-LAD, Sequential SVG-OM2 and RPDA 02/27/2021 Orders: Orders: 12 Lead EKG performed by BMS 05/28/21 Basic Metabolic Profile (BMP) Today Partial Thromboplast Time Today Prothrombin Time w/INR Today CBC W/Diff, Automated Today Left Heart Cath w/Grafts 06/18/21 Plan - Bakari Joseph CELLOPHANE WRAPPING EXAMINER, CELLOPHANE WRAPPING EXAMINER-C: He will continue current medical therapy which includes aspirin, Plavix, isosorbide, lisinopril, and rosuvastatin. Due to feeling fatigue and lower heart rates at home, he has discontinued metoprolol therapy. We can reconsider initiating such medication based on an ongoing basis based based on overall progress and test results. (3) History of coronary artery stent placement: Status: Resolved Comment: PCI-BMS to the RCA 02/08/07; PCI-DIVINE-LCx w/ 3.0 x 32 mm Promus Stent, ELC-ZDF-Ogynhl RCA w/ 2.75 x 16 mm Promus Stent and DIVINE-Mid RCA w/ 3.0 x 24 mm Promus Stent 02/17/2013 Orders: Orders: 12 Lead EKG performed by BMS 05/28/21 Basic Metabolic Profile (BMP) Today Partial Thromboplast Time Today Prothrombin Time w/INR Today CBC W/Diff, Automated Today Left Heart Cath w/Grafts 06/18/21 Plan - Bakari Joseph CELLOPHANE WRAPPING EXAMINER, CELLOPHANE WRAPPING EXAMINER-C: He will continue risk factor lifestyle modification. (4) Non-rheumatic aortic regurgitation: Status: Acute Orders: Orders: Basic Metabolic Profile (BMP) Today Partial Thromboplast Time Today Prothrombin Time w/INR Today CBC W/Diff, Automated Today Left Heart Cath w/Grafts 06/18/21 Juli Joseph CELLOPHANE WRAPPING EXAMINER, CELLOPHANE WRAPPING EXAMINER-C: His last echocardiogram in January 2021 showed an ejection fraction of 60%, stage I diastolic dysfunction, and mild aortic valve insufficiency. This appears stable on history and exam. At this time, this is thought to not be contributing to his symptoms. We will continue to monitor. (5) Essential hypertension: Status: Chronic Orders: Orders: Basic Metabolic Profile (BMP) Today Partial Thromboplast Time Today Prothrombin Time w/INR Today CBC W/Diff, Automated Today Left Heart Cath w/Grafts 06/18/21 Plan - Bakari Joseph CELLOPHANE WRAPPING EXAMINER, CELLOPHANE WRAPPING EXAMINER-C: Patient's blood pressure is well-controlled. We will continue to monitor. We will not make any medication regimen changes. (6) Pure hypercholesterolemia: Status: Chronic Orders: Orders: Basic Metabolic Profile (BMP) Today Partial Thromboplast Time Today Prothrombin Time w/INR Today CBC W/Diff, Automated Today Left Heart Cath w/Grafts 06/18/21 Plan - Bakari Joseph CELLOPHANE WRAPPING EXAMINER, CELLOPHANE WRAPPING EXAMINER-C: He has previously been intolerant to statin medication. Since his recent bypass, he is started on Crestor therapy and he denies any myalgia. He was asked continue to have his lipid and liver profile evaluated on a routine basis. If his LDL remains greater than 70, options may include such therapy as Repatha or Vascepa to assist with preventing future cardiac events can be considered. Plan Details Other Orders: Orders: Basic Metabolic Profile (BMP) Today R07.9, R53.83 Partial Thromboplast Time Today R07.9, R53.83 Prothrombin Time w/INR Today R07.9, R53.83 CBC W/Diff, Automated Today R07.9, R53.83 Left Heart Cath w/Grafts 06/18/21 R07.9, R53.83 Additional Comments: Thank you for allowing us to participate in the patients plan of care, if you have any questions please do not hesitate to call. This note was generated using a voice recognition system and there may be incorrect words, spelling or punctuation that were not noted when reviewing the office note prior to saving. Follow Up: Keep as is (JHR/PFM) Coding Level of Care Code Off vis,est,level 4 Diagnoses Atherosclerotic heart disease of [place] coronary artery without angina pectoris I25.10 [place] vs. transplanted heart: [place] heart H/O coronary artery bypass surgery Z95.1 History of coronary artery stent placement Z95.5 Non-rheumatic aortic regurgitation I35.1 Essential hypertension I10 Pure hypercholesterolemia E78.00 Coding Level of Care Code Off vis,est,level 4 Diagnoses Atherosclerotic heart disease of [place] coronary artery without angina pectoris I25.10 [place] vs. transplanted heart: [place] heart H/O coronary artery bypass surgery Z95.1 History of coronary artery stent placement Z95.5 Non-rheumatic aortic regurgitation I35.1 Essential hypertension I10 Pure hypercholesterolemia E78.00 Supplemental Info Supplemental Information Heart catheterization from 02/21/2021: CONCLUSIONS Severe distal left main coronary artery disease, previously placed stent in the circumflex artery patent, previously placed stent in the right coronary artery with severe in-stent stenosis. RECOMMENDATIONS Surgery consult for coronary revascularization CORONARY ANGIOGRAPHY DOMINANCE: Right Dominant LEFT HEART ASSESSMENT Left Ventricular Ejection Fraction: by Echo pending % Normal Left Ventricular systolic function LEFT MAIN: Distal 95% LEFT ANTERIOR DESCENDING ARTERY: Mild luminal irregularities less than 30% CIRCUMFLEX ARTERY: No significant disease noted MID CIRC: Previously placed stent is patent RIGHT CORONARY ARTERY: PROX RCA: Instent restenosis 90 long % COMPLICATIONS No Complications CAB02/27/2021: CABG x3 with Dr. Brandon on 02/27/2021 with GOMEZ to mid LAD, Ao-Om2-PDA deq w/ lsvg Stress test on 02/15/2021: Conclusion: Exercise myocardial perfusion stress test with evidence of mid inferior ischemia at a moderate workload. Chest discomfort noted during exercise suggestive of angina. Preserved ejection fraction. Echocardiogram from 02/15/2021: Interpretation Summary Normal LV size. Left ventricular systolic function is normal. The estimated ejection fraction is 60 %. Stage 1 diastolic dysfunction. Mild (1+) eccentric aortic valve insufficiency. Pulmonary artery systolic pressure is 28 mmHg. Contrast injection was performed. Labs: LDL Cholesterol 145 mg/dL (0-130) H HDL Cholesterol 52 mg/dL (40-) Triglycerides 85 mg/dL (-199) VLDL Cholesterol 17 mg/dL (5-40) Diagnostics: Electrocardiogram Echocardiogram Stress Test NM Stress Test Cardiac Catheterization Chest X-Ray Pulmonary: No Data to Display 05/29/21 1323<Electronically signed by Bakari LI>Date Bakari BLAKEC Cosigner Signature:Date (if applicable) CC: Dr. Toby Rae MD ~ The surgeon/proceduralist and patient have discussed in detail the risk of exposure to and/or potential harm posed by the COVID-19 virus with having a surgery/procedure at this time versus the risk of delaying the surgery/procedure. It is not possible to know either the risk of delaying the surgery or procedure or chance of getting an infection with perfect accuracy, but a joint decision was made between the patient and the surgeon/proceduralist to proceed at this time with the scheduled surgery/procedure as indicated on the consent form. I have re-examined the patient. There are no clinical changes since date of exam.
[2021-06-12] VITALS (13 sets, daily range): BP systolic 124–170; BP diastolic 68–92; PULSE 64–85; RESP 16–18; TEMP 36.4–36.8; O2SAT 97–100; BMI 32.4
--- NOTE | 2021-06-12 10:30 | EKG12_ITS ---
Test Reason : POST PCI Blood Pressure : / mmHG Vent. Rate : 075 BPM Atrial Rate : 075 BPM P-R Int : 226 ms QRS Dur : 102 ms QT Int : 406 ms P-R-T Axes : 042 -26 027 degrees QTc Int : 453 ms Sinus rhythm with 1st degree A-V block Confirmed by LEONOR LONG, JONES ([id number]), mapping editor SILAS LEIVA ([id number]) on 06/13/2021 9:09:37 AM Referred By: Jones Galvez Confirmed By:JONES GALVEZ MD
--- NOTE | 2021-06-12 11:03 | CL.I_ITS ---
Patient Name: SERGIO JOSEPH Study Date: 06/12/2021 Performing: Erin Golden MD Ht: 66.92 inches 170 cm : 1955 Wt: 202.83 lbs 92 kg Age: 66 Gender: male BSA: 2.03 PROCEDURE(S) PERFORMED [id number] W OR WO PTCA, SINGLE CORONARY ARTERY [id number] W OR WO PTCA, SINGLE CORONARY ARTERY CLINICAL PROFILE AND CO-MORBIDITIES Indications: Worsening Angina Heart Failure: None Stress/Imaging Stress/Image Study Performed: No CAD Presentations: Unstable angina. CONCLUSIONS Successful PCI with DIVINE to distal LM and OM1 RECOMMENDATIONS DESCRIPTION OF PROCEDURE The patient arrived to the procedure lab. The risks and benefits of the procedure as well as a full d escription of our services here and current unavailability of surgical backup were fully explained to the patient and/or their significant other prior to the catheterization. The Timeout was completed, verifying the correct patient and procedure. The patient's procedural site was prepped and draped in the usual fashion. Local anesthetic was given subcutaneously to right groin region with Lidocaine 2% Using a modified Seldinger technique,arterial access was obtained via the right femoral artery, a 4Fr sheath was inserted Left Coronary Artery selective angiography was performed in multiple views using a 4 Fr. JL5 catheter. Right Coronary Artery selective angiography was then performed in multiple vie ws using a 4 Fr. 3DRC catheter. Left internal mammary artery graft to the LAD selective angiography w as performed in multiple views using a 4 Fr. 3DRC catheter. Sequential Saphenous Vein graft to the OM 2 and RPDA selective angiography was performed in multiple views using a 4 Fr. JR4 c atheter. Left Ventriculography was performed in LARA projection using a 4 Fr. Pigtail catheter. LV to AO pullback pressures were then recorded.The images were reviewed and options discussed. A decision w as then made to proceed with an Intervention, IVUS or other adjunct procedure. Arterial sheath was exchanged for a 6 Fr Sheath. XB 3.5 Guide catheter was inserted and engaged i nto the LCA. BMW Guide wire was advanced to the LAD. Runthrough Guide wire was advanced to the Left m ain. Emerge 2.50x12 Balloon catheter was inserted on BMW wire PTCA balloon inflated at 12 atms for 15 secs. PTCA balloon inflated at 12 atms for 12 secs. PTCA balloon inflated at 11 atms for 12 secs. 2. 50x12 Balloon catheter was placed over Runthrough wire PTCA balloon inflated at 10 atms for 15 secs. PTCA balloon inflated at 10 atms for 10 secs. Angiogram performed post balloon dilatation. Orsiro 2.2 5x13 Drug Eluting stent was inserted. Orsiro 2.5x18 Drug Eluting stent was inserted. Angiogram perfor med post stent deployment. NC Emerge 3.00x8 Balloon catheter was inserted. Angiogram performed post b alloon dilatation. NC Emerge 2.25x8 Balloon catheter was inserted. Angiogram performed post balloon d ilatation. Contrast was injected through the sheath and the Right Iliac and Femoral artery were assessed for possible closure device. The arterial sheath was pulled and a Perclose closure dev ice was deployed for hemostasis INTERVENTION INFORMATION LESION SITE: Left Main (Distal) Lesion Complexity: High/C, chronic total occlusion: No, lesion at bifurcation: Yes, thrombus present: No, lesion length: 15 mm, culprit lesion: Yes, Previously treated lesion: No Pre Stenosis: 90 % Pre intervention DAVID flow: 3 PROCEDURE: Drug Eluting Stent with pre and post dilatation PTCA was performed into the LAD to improve flow in the D1 and the stent was deployed from the LM into the LCx Post Stenosis: 0 % Post intervention DAVID flow: 3 Lesion Devices: Cardinal 6 Fr XB3.5 100cm Guide Catheter Terumo .014 Runthrough Extra Floppy 180cm straight Angel Sci EMERGE MR 2.50x12 BALLOON Biotronik Orsiro MR DIVINE 2.5x18 Angel Sci NC EMERGE MR 3.00x08 BALLOON LESION SITE: 1st OM (Proximal) Lesion Complexity: High/C, chronic total occlusion: No, lesion at bifurcation: Yes, thrombus present: No, lesion length: 11 mm, culprit lesion: Yes, Previously treated lesion: No Pre Stenosis: 90 % Pre intervention DAVID flow: 2 PROCEDURE: Drug Eluting Stent with post dilatation Post Stenosis: 0 % Post intervention DAVID flow: 3 Lesion Devices: Cardinal 6 Fr XB3.5 100cm Guide Catheter Campbell .014 BMW Omar Straight 190cm Biotronik Orsiro MR DIVINE 2.25x13 Angel Sci NC EMERGE MR 2.25x08 BALLOON COMPLICATIONS No Complications PROCEDURE MEDICATIONS Versed 1 mg IV Oxygen: 2 L/min via nasal cannula Brilinta 180 mg PO @ 06/12/2021 09:48:21 Heparin 8000 unit(s) IV 06/12/2021 08:54:00 SUMMARY OF HEMODYNAMIC DATA Time AIR REST ECG 07:25:29 AO 112/65 (87) SA 08:08:32 LV 121/-11, 23 08:22:23 LV 116/-13, 17 08:22:29 LV 115/-9, 20 08:23:11 LV 116/-11, 16 08:23:18 LVp 121/-11, 19 08:23:24 AOp 121/61 (88) 08:23:29 AO 147/74 (103) 08:26:26 Signed By Erin Golden MD On 06/12/2021 11:02:27 AM Erin Golden MD
[2021-06-12] MEDS: 0.9% Normal Saline 1,000 ML 100 ML IV (11:23)
[2021-06-12] MEDS: Acetaminophen 325 MG Tablet 650 MG PO (13:12)
[2021-06-12] MEDS: Lidocaine 2% /Epi 1:100 (20ml) 20 ML VIAL OPERA.SITE (13:13)
--- NOTE | 2021-06-12 13:38 | CRPHASE1 ---
Patient Communication Former Patient:: Phase I PHII Cardiac Rehab Discussed with Patient:: Yes Guide to Cardiac Rehab Given to Patient:: Yes Cardiac Rehab Facility Choice List Given to Patient:: Yes Choice Program [facility] CR PHII:: Communication Given to CR Choice Program Other:: Communication Given to CR Avionics Electronics Technician:: Nelsy Golden Refer Phase II Cardiac Rehab:: Yes Sessions:: 36 sessions - 3 days/wk, 12 weeks - PT HAD BYPASS SURGERY IN JANUARY Cardiac Rehabilitation Info Cardiac Rehabilitation Program Information: Cardiac Rehabilitation is important for patients like you who are recovering from a heart problem. Cardiac rehabilitation programs are recognized as integral to the continued care of the patient with coronary heart disease. The cardiac rehabilitation program is designed to optimize a patient's physical, psychological, and social functioning. Health career development director work in cardiac rehabilitation programs and assist you with getting the treatments you need to get stronger and healthier - like exercise, healthy eating habits, and medications. Cardiac rehabilitation has been show to help people with heart problems live longer and have better life enjoyment than people who do not go to cardiac rehabilitation. Please contact the Cardiac Rehabilitation Program at [facility] at in two weeks if you have not heard from them.
--- NOTE | 2021-06-12 13:39 | CRPH1.INSTRU ---
General Education CAD and cardiac anatomy and function:: Patient communicates acknowledgment, Family communicates acknowledgment Explanation of diagnoses and procedures:: Patient communicates acknowledgment, Family communicates acknowledgment Sign/Symptoms of [place]:: Patient communicates acknowledgment, Family communicates acknowledgment Antiplatelet therapy: Patient communicates acknowledgment, Family communicates acknowledgment Smoking Patient Nicotine/Smoking Risk Factors Are:: Non-smoker Dyslipidemia Patient Dyslipidemia Risk Factors Are:: Total Cholesterol, Triglycerides, HDL, LDL Recommendations Include:: Lipid profile provided, Reviewed NCEP/ATP guidelines, Therapeutic Lifestyle Change dietary guidelines Dyslipidemia Response Code:: Patient communicates acknowledgment Overweight/Obesity Patient Overweight/Obesity Risk Factors Are:: Obesity - > or = 30 Recommendations Include:: Weight loss of 5-10%, Reduced calorie diet Overweight/Obesity:: Patient communicates acknowledgment Hypertension Patient Hypertension Risk Factors Are:: No documented hx of HTN Recommendations Include:: Maintain BP <130/85, DASH dietary guidelines, Decrease/maintain normal body weight Hypertension:: Patient communicates acknowledgment Heart Disease Patient Heart Disease Risk Factors Are:: Family history of heart disease < 65 years old, Previous cardiac event Recommendations Include:: Educated family members of their risk, Educated family members of importance of prevention of heart disease Heart Disease Response Code:: Patient communicates acknowledgment, Family communicates acknowledgment Diabetes Patient Diabetes Risk Factors Are:: No documented hx of diabetes Metabolic Syndrome Patient Metabolic Syndrome Risk Factors Are [3 of 5]:: Fasting blood sugar > 100 mg/dL, Waist circumference > 35 [female] or 40 [male], High triglyceride >150, Hypertension, Low HDL <40 [male] or < 50 [female] Recommendations Include:: Reinforce compliance to risk factor modifications, Encouraged follow-up with Primary Care Physician Metabolic Syndrome Response Code:: Patient communicates acknowledgment Sedentary Patient Sedentary Risk Factors Are:: Lack of regular exercise Recommendations Include:: Aerobic exercise 5-7 times/week for 20-30 minutes continuously, Benefits of regular exercise, Discussed home walking program, Monitored Outpatient Cardiac Rehab Sedentary Response Code:: Patient communicates acknowledgment Stress Patient Stress Risk Factors Are:: Patient denies stress as a risk factor
--- NOTE | 2021-06-12 17:50 | CL.D_ITS ---
Patient Name: SERGIO JOSEPH Study Date: 06/12/2021 Performing: Jones Villegas MD Ht: 67 inches 170 cm : 1955 Wt: 203.1 lbs 92 kg Age: 66 Gender: male BSA: 2.03 PROCEDURE(S) PERFORMED [id number]/LV/CABG [id number] W OR WO PTCA, SINGLE CORONARY ARTERY [id number] W OR WO PTCA, SINGLE CORONARY ARTERY CLINICAL PROFILE AND INDICATIONS Indications: Worsening Angina, Worsening Angina, Suspected CAD Heart Failure: None Stress/Imaging Stress/Image Study Performed: No Stress/Image Study Performed: No Angina Classification Anginal Classification w/in 2 Weeks: CCS III CAD Presentations: Unstable angina. Stable angina. CONCLUSIONS Elevated Left Ventricular End Diastolic Pressure Normal LV size, wall motion,and systolic function LVEF: by LV gram 55 % [place] Multivessel CAD GOMEZ to LAD: patent SVG to OM1 and sequential portion to RPDA: patent RECOMMENDATIONS Risk factor modification Medical therapy Case discussed / reviewed with Dr. Golden of Interventional Cardiology DESCRIPTION OF PROCEDURE The patient arrived to the procedure lab. The risks and benefits of the procedure as well as a full d escription of our services here and current unavailability of surgical backup were fully explained to the patient and/or their significant other prior to the catheterization. The Timeout was completed, verifying the correct patient and procedure. The patient's procedural site was prepped and draped in the usual fashion. Local anesthetic was given subcutaneously to right groin region with Lidocaine 2%. Using a modified Seldinger technique, arterial access was obtained via the right femoral artery, a 4 Fr sheath was inserted Left Coronary Artery selective angiography was performed in multiple views us ing a 4 Fr. JL5 catheter. Right Coronary Artery selective angiography was then performed in multiple views using a 4 Fr. 3DRC catheter. Left internal mammary artery graft to the LAD selective angiograph y was performed in multiple views using a 4 Fr. 3DRC catheter. Sequential Saphenous Vein graft to the OM 2 and RPDA selective angiography was performed in multiple views using a 4 Fr. JR4 c atheter. Left Ventriculography was performed in LARA projection using a 4 Fr. Pigtail catheter. LV to AO pullback pressures were then recorded.Contrast was injected through the sheath and the Right Iliac and Femoral artery were assessed for possible closure device.The arterial sheath was pulled and a Pe rclose closure device was deployed for hemostasis CORONARY ANGIOGRAPHY DOMINANCE: Right Dominant LEFT HEART ASSESSMENT Left Ventricular Ejection Fraction: by LV Gram 55 % Normal LV wall motion Elevated Left Ventricular End Diastolic Pressure LVEDP: 17 mmHg LEFT MAIN: distal: 95 % Stenosis LEFT ANTERIOR DESCENDING ARTERY: OSTIAL LAD: 75 % Stenosis PROX LAD: diffuse: 25 % Stenosis MID LAD: mid to distal vessel filling from antegrade flow but predominantly from GOMEZ graft flow with no angiographically significant appearing disease distal to the graft attachement CIRCUMFLEX ARTERY: OSTIAL CIRC: 75 % Stenosis PROX CIRC: 25 % Stenosis MID CIRC: Previously placed stent is patent OM 1: Proximal - subtotally occluded: filling predominantly from antegrade flow and only partially fr om SVG graft flow RIGHT CORONARY ARTERY: PROX RCA: Previously placed stent has an instent 99 % restenosis with the distal RCA system filling f rom antegrade flow and SVG graft flow GRAFTS: GOMEZ graft to the Mid LAD is patent Saphenous Vein graft to the 1st OM is patent with a sequential portion to the RPDA being patent AORTIC ROOT: Angiographically normal COMPLICATIONS No Complications PROCEDURE MEDICATIONS Versed 1 mg IV Oxygen: 2 L/min via nasal cannula Brilinta 180 mg PO @ 06/12/2021 09:48:21 Heparin 8000 unit(s) IV 06/12/2021 08:54:00 SUMMARY OF HEMODYNAMIC DATA Time AIR REST ECG 07:25:29 AO 112/65 (87) SA 08:08:32 LV 121/-11, 23 08:22:23 LV 116/-13, 17 08:22:29 LV 115/-9, 20 08:23:11 LV 116/-11, 16 08:23:18 LVp 121/-11, 19 08:23:24 AOp 121/61 (88) 08:23:29 AO 147/74 (103) 08:26:26 Signed By Jones Villegas MD On 06/12/2021 17:49:48 Jones Villegas MD
[2021-06-12] MEDS: TICAGRELOR 90 MG TABLET PO (21:30)
[2021-06-12] MEDS: Lisinopril 2.5 MG Tablet PO (23:14)
[2021-06-13 02:59] VITALS: PULSE 76
[2021-06-13 03:00] VITALS: BP 117/72; PULSE 72; RESP 16; TEMP 36.8; O2SAT 100
[2021-06-13 06:58] LABS: Hematocrit 45.9 % (40-54); Hemoglobin 14.6 g/dL (13.0-16.5); Mean Corp Hgb Conc 31.8 g/dL (32-36); Mean Corpuscular Hgb 29.1 pg (27.0-32.0); Mean Corpuscular Volume 91.4 fL (80-94); Mean Platelet Vol. 9.2 fl (6.2-12.0); Platelet Count 192 K/mm3 (150-450); RBC Distribution Width CV 12.9 % (11.6-14.6); RBC Distribution Width SD 43.4 fl (35.1-43.9); Red Blood Count 5.02 M/mm3 (4.6-6.2); White Blood Count 5.9 K/mm3 (4.4-11.0)
[2021-06-13 07:00] VITALS: PULSE 94
[2021-06-13 07:19] LABS: ALB/GLOB Ratio 0.8 RATIO (0.9-2.4); AST(SGOT) 18 U/L (15-37); Alanine Aminotransfer ALT/SGPT 23 U/L (16-61); Albumin, Serum 3.2 g/dL (3.2-5.0); Alkaline Phosphatase 54 U/L (45-117); Anion Gap 7 (5-15); BUN 15 mg/dL (7-18); BUN/Creat Ratio 15.5 RATIO (10-20); Calcium,Total 9.1 mg/dL (8.5-10.1); Chloride 105 mmol/L (98-107); Creatinine, Serum 0.97 mg/dL (0.70-1.30); EST Glomerular Filtration Rate 83 mL/min (>60); Est Glom Filt Rate - Afr Amer 100 mL/min (>60); Estimated Creatinine Clearance 71.93 ml/min; Globulin 4.1 g/dL (2.2-4.2); Glucose 81 mg/dL (74-106); Protein, Total 7.3 g/dL (6.4-8.2); Sodium Level 138 mmol/L (136-145)
[2021-06-13 07:35] VITALS: O2SAT 98
--- NOTE | 2021-06-13 08:52 | PCM.DC ---
Discharge Instructions Diet Discharge Diet: Low fat / Low cholesterol Activity Discharge Activity: May Shower (Today) and May Take a Tub Bath (in 7 days) May resume sexual activity in: 1-2 weeks Weight Bearing Status: - (avoid heavy exertional activity for 7 days then resume normal activity as tolerated) Dressing / Incision Call your doctor if your incision/area has: Continuous Slow Oozing, Sudden Increased Bleeding, Increased Pain/ Swelling, Increased Redness, Foul Smelling Discharge and Swelling at the incision site Call your doctor if you observe: Fever of 101 or Higher, Shortness of breath, Fainting spells, Swelling in the ankles, Chest pain and Increased palpitations (irregular heartbeat) Remove Dressing in: 1 day Cleanse incision/area with: Soap & Water Follow Up Care Please Follow Up With: Jones Villegas MD When: 07/01/21: [facility]: 16:00 hours (4:00 PM) Test Results: Test results from this visit will be discussed in further detail at your follow-up appointment, if applicable. Discharge Plan Admission Primary Reason for Your Visit: CAD; PCI; CABG Attending Provider: Jones Villegas Primary Care Provider: Toby Rae Instructions Patient Instructions: Cholesterol Medicines, CAD, Cholesterol Lifestyle Changes, ED Chest Pain, Noncardiac Discharge Orders/Prescriptions Prescriptions: New Brilinta 90 mg Tablet 90 mg PO BID Qty: 60 RF: 11 ezetimibe [Zetia] 10 mg tablet 10 mg PO DAILY Qty: 30 RF: 11 Continued aspirin [Adult Low Dose Aspirin] 81 mg tablet,delayed release (DR/EC) 81 mg PO DAILY RF: 0 cholecalciferol (vitamin D3) 10 mcg (400 unit) capsule 10 mcg PO DAILY RF: 0 rosuvastatin 5 mg tablet 5 mg PO DAILY RF: 0 lisinopril 2.5 mg tablet 2.5 mg PO DAILY RF: 0 isosorbide mononitrate 30 mg tablet extended release 24 hr 30 mg PO DAILY Qty: 30 RF: 3 Discontinued clopidogrel [Plavix] 75 mg tablet 75 mg PO QDAY Qty: 30 RF: 12 Referrals / Follow Up: Toby Rae MD [Primary Care Provider] - Disposition Disposition (needs filled in before D/C Order can be placed): Home, Self Care
--- NOTE | 2021-06-13 08:59 | DS.PCM_ITS ---
Providers Primary Care Physician: Dr. Toby Rae MD Reason For Visit: CAD,CHEST PAIN,CABG Diagnosis Discharge Diagnosis (1) Atherosclerotic heart disease of [place] coronary artery without angina pectoris: Status: Chronic Code(s): I25.10 - Atherosclerotic heart disease of [place] coronary artery without angina pectoris Qualifiers: [place] vs. transplanted heart: [place] heart Qualified Code(s): I25.10 - Atherosclerotic heart disease of [place] coronary artery without angina pectoris (2) History of coronary artery stent placement: Status: Resolved Code(s): Z95.5 - Presence of coronary angioplasty implant and graft (3) H/O coronary artery bypass surgery: Status: Resolved Code(s): Z95.1 - Presence of aortocoronary bypass graft (4) Pure hypercholesterolemia: Status: Chronic Code(s): E78.00 - Pure hypercholesterolemia, unspecified (5) Essential hypertension: Status: Chronic Code(s): I10 - Essential (primary) hypertension Medications at Discharge Home Medications aspirin 81 mg tablet,delayed release 81 mg PO DAILY 01/29/21 lisinopril 2.5 mg tablet 2.5 mg PO DAILY 03/04/21 rosuvastatin 5 mg tablet 5 mg PO DAILY 03/04/21 isosorbide mononitrate 30 mg tablet,extended release 24 hr 30 mg PO DAILY #30 tab 05/27/21 cholecalciferol (vitamin D3) 10 mcg (400 unit) capsule 10 mcg PO DAILY 05/28/21 ezetimibe [Zetia] 10 mg PO DAILY #30 tab 06/13/21 ticagrelor [Brilinta] 90 mg PO BID #60 tab 06/13/21 Hospital Course Procedures Cardiac catheterization and - (Cardiac Intervention) Summary of Care Provided Minutes Spent on Discharge: 60 Hospital Course: The patient presented to [facility] with a history of CAD status post CABG with symptoms concerning for angina pectoris for further evaluation with diagnostic cardiac catheterization. The patient underwent diagnostic cardiac catheterization. He was found to have overall preserved left ventricular wall motion and systolic function/LVEF. He was found to have multivessel CAD. His GOMEZ to the LAD was patent. His SVG to the OM1 with a sequential portion to the right PDA was patent. Status post review of his case there was concern that his LCx/OM system was not receiving adequate flow from his SVG graft. Thus he subsequently underwent PTCA/stent to the left main coronary artery and the LCx/OM system. He was monitored in the hospital overnight. He appeared to remain symptomatically and hemodynamically stable. On this day he was felt stable for release home for continued outpatient cardiovascular follow-up. Of note, 60 minutes was spent with the patient and his discharge. During this time a conversation was held with the patient with respect to understandfing his underlying cardiovascular disease process, his cardiovascular risk factors, and the importance of his cardiovascular medications. The patient stated that he believes he is sensitive to many medications and has been hesitant to take many medications and based upon these issues, especially with respect to his lipid- lowering medications, has not been taking his statin on a regular daily basis. He states he would be willing to try Zetia which he had been on once before and is unsure as to whether or not the way he felt on that medication was truly related to the medication or, as he had some gastrointestinal related issues, related to a separate gastrointestinal process. He is hesitant to proceed with the PCSK9 inhibitors after reading the potential side effect profile. He c omments that he will do the best he can with respect to his diet and his activity to assist with his lipid control. He agreed to continue his other medicines such as his aspirin, antiplatelet therapy, nitrates, and GARRICK inhibitors in the interim. He had been on a beta-lisa and states he does not want to return to a beta-lisa based upon his concerns as to how he felt on a beta-lisa which was being somewhat more slow and sluggish . He did agreed to continue with outpatient cardiovascular follow-up. Physical Exam Narrative The patient is awake and alert and in no acute distress. Const alert, oriented x3 and no apparent distress General Appearance: cooperative, comfortable, well kempt and well developed HEENT normocephalic, head/scalp atraumatic and hearing grossly normal bilaterally Eyes PERRL, EOMs intact bilaterally, conjunctivae normal and no scleral icterus Neck full ROM and no JVD Chest Chest: midline sternotomy incision Resp normal respiratory effort and clear to auscultation bilaterally Cardio regular rate, regular rhythm, S1 normal heart sound and S2 normal heart sound GI normal to inspection, nondistended, normoactive bowel sounds Extremity Extremity Narrative: Right inguinal area: Femoral pulse: 2+/4+; no bruits; no hematoma; positive ecchymoses Peripheral Pulses: Yes femoral pulses present right 2+ Skin Skin Narrative: Right inguinal area: No ecchymosis Neuro oriented x3, CN's II-XII intact bilaterally, moves all extremities, no focal motor deficits and no sensory deficits noted Psych mental status grossly normal Weight / BMI Weight Weight: 207 lb 4.8 oz Body Mass Index (BMI) 32.4 ABG / Lab / Microbiology Data Result Diagrams: 06/13/21 06:15 06/13/21 06:15 Laboratory: Laboratory Results - last 24 hr 06/13/21 06:15: WBC 5.9, RBC 5.02, Hgb 14.6, Hct 45.9, MCV 91.4, MCH 29.1, MCHC 31.8 L, RDW Std Deviation 43.4, RDW Coeff of [place] 12.9, Plt Count 192, MPV 9.2 06/13/21 06:15: Sodium 138, Potassium 4.0, Chloride 105, Carbon Dioxide 26.0, Anion Gap 7, BUN 15, Creatinine 0.97, Estim Creat Clear Calc 71.93, Est GFR (MDRD) Af Amer 100, Est GFR (MDRD) Non-Af 83, BUN/Creatinine Ratio 15.5, Glucose 81, Calcium 9.1, Total Bilirubin 0.50, AST 18, ALT 23, Alkaline Phosphatase 54, Total Protein 7.3, Albumin 3.2, Globulin 4.1, Albumin/Globulin Ratio 0.8 L D/C Instructions Discharge Diet: Low fat / Low cholesterol May resume sexual activity in: 1-2 weeks Weight Bearing Status: - (avoid heavy exertional activity for 7 days then resume normal activity as tolerated) Call your doctor if your incision/area has: Continuous Slow Oozing, Sudden Increased Bleeding, Increased Pain/ Swelling, Increased Redness, Foul Smelling Discharge and Swelling at the incision site Call your doctor if you observe: Fever of 101 or Higher, Shortness of breath, Fainting spells, Swelling in the ankles, Chest pain and Increased palpitations (irregular heartbeat) Cleanse incision/area with: Soap & Water Please Follow Up With: Jones Villegas MD When: 07/01/21: [facility]: 16:00 hours (4:00 PM) Meaningful Use Info Meaningful Use Diagnoses (Choose all that apply): None applicable Discharge Plan Admission Primary Reason for Your Visit: CAD; PCI; CABG Attending Provider: Jones Villegas Primary Care Provider: Toby Rae Instructions Patient Instructions: Cholesterol Medicines, CAD, Cholesterol Lifestyle Changes Discharge Orders/Prescriptions Prescriptions: New Brilinta 90 mg Tablet 90 mg PO BID Qty: 60 RF: 11 ezetimibe [Zetia] 10 mg tablet 10 mg PO DAILY Qty: 30 RF: 11 Continued aspirin [Adult Low Dose Aspirin] 81 mg tablet,delayed release (DR/EC) 81 mg PO DAILY RF: 0 cholecalciferol (vitamin D3) 10 mcg (400 unit) capsule 10 mcg PO DAILY RF: 0 rosuvastatin 5 mg tablet 5 mg PO DAILY RF: 0 lisinopril 2.5 mg tablet 2.5 mg PO DAILY RF: 0 isosorbide mononitrate 30 mg tablet extended release 24 hr 30 mg PO DAILY Qty: 30 RF: 3 Discontinued clopidogrel [Plavix] 75 mg tablet 75 mg PO QDAY Qty: 30 RF: 12 Referrals / Follow Up: Toby Rae MD [Primary Care Provider] - Disposition Disposition (needs filled in before D/C Order can be placed): Home, Self Care
[2021-06-13 09:00] VITALS: BP 136/84; PULSE 76; RESP 18; TEMP 36.6; O2SAT 99
[2021-06-13] MEDS: Isosorbide Mononitrate 30 MG Tablet PO (09:01)
[2021-06-13] MEDS: TICAGRELOR 90 MG TABLET PO (09:01)
[2021-06-13] MEDS: Aspirin E.C. 81 MG Tablet PO (09:01)
[2021-06-13 09:17] VITALS: BP 136/84; PULSE 76; RESP 18; TEMP 36.6; O2SAT 99
[2021-06-13] MEDS: Acetaminophen 325 MG Tablet 650 MG PO (09:20)
--- NOTE | 2021-06-13 10:00 | EKG12_ITS ---
Test Reason : AM EKG Blood Pressure : / mmHG Vent. Rate : 072 BPM Atrial Rate : 078 BPM P-R Int : 210 ms QRS Dur : 112 ms QT Int : 420 ms P-R-T Axes : 042 -16 027 degrees QTc Int : 459 ms Sinus rhythm with sinus arrhythmia with 1st degree A-V block Otherwise normal ECG When compared with ECG of 12-JUN-2021 11:35, MANUAL COMPARISON REQUIRED, DATA IS UNCONFIRMED Confirmed by PABLO LONG, SADIA ([id number]), editor at large SILAS LEIVA ([id number]) on 06/14/2021 9:28:54 AM Referred By: Jones Villegas Confirmed By:MAXIMO SHAH MD
--- NOTE | 2021-06-13 10:13 | PHA.DC.MR ---
Pharmacy Service has performed discharge medication reconciliation for this patient. No new medications at time of discharge. Medications reviewed are from previously reported home medications. Home Medications aspirin 81 mg tablet,delayed release 81 mg PO DAILY 01/29/21 lisinopril 2.5 mg tablet 2.5 mg PO DAILY 03/04/21 rosuvastatin 5 mg tablet 5 mg PO DAILY 03/04/21 isosorbide mononitrate 30 mg tablet,extended release 24 hr 30 mg PO DAILY #30 tab 05/27/21 cholecalciferol (vitamin D3) 10 mcg (400 unit) capsule 10 mcg PO DAILY 05/28/21 ezetimibe [Zetia] 10 mg PO DAILY #30 tab 06/13/21 ticagrelor [Brilinta] 90 mg PO BID #60 tab 06/13/21 The patient's discharge medication list was reviewed for discrepancies and discrepancies were resolved.
== END 2021-06-13 08:57 | disposition home or self-care (01) ==
LOC: CLSP 06:54 → PCU 06-13 08:55
PROVIDERS: Specialist; PCP Family Medicine; Referring Provider Internal Medicine Cardiovascular Disease; Visit Provider Internal Medicine Cardiovascular Disease
DX: I25.110 Atherosclerotic heart disease of native coronary artery with unstable angina pectoris (principal); E78.00 Pure hypercholesterolemia, unspecified; I10 Essential (primary) hypertension; G47.33 Obstructive sleep apnea (adult) (pediatric); Z95.1 Presence of aortocoronary bypass graft; Z79.82 Long term (current) use of aspirin; Z79.02 Long term (current) use of antithrombotics/antiplatelets; Z79.899 Other long term (current) drug therapy
CPT/HCPCS: 36415; 80053; 85027; 92928; 93005; 93459; 99152; 99153; C1874; J7030; J7040; Q9967; C1725; C1760; C1769; C1887; C1894; C9600

== ENCOUNTER → 2021-09-28 11:47 | Outpatient (CLI) | payer BC, SELFPAY ==
[2021-09-28 12:21] LABS: AST(SGOT) 26 U/L (15-37); Alanine Aminotransfer ALT/SGPT 30 U/L (16-61); Albumin, Serum 3.3 g/dL (3.2-5.0); Alkaline Phosphatase 53 U/L (45-117); Bilirubin, Direct 0.16 mg/dL (0.00-0.30); Cholesterol 170 mg/dL (200); Globulin 4.4 g/dL (2.2-4.2); High Density Lipoprotein 60 mg/dL; Protein, Total 7.7 g/dL (6.4-8.2); Triglycerides 59 mg/dL; Very Low Density Lipoprotein 12 mg/dL (5-40)
== END ==
PROVIDERS: PCP Family Medicine; Referring Provider Nurse Practitioner Family; Visit Provider Nurse Practitioner Family
DX: E78.00 Pure hypercholesterolemia, unspecified (principal)
CPT/HCPCS: 36415; 80061; 80076

== ENCOUNTER 2021-12-18 13:36 | Outpatient (CLI) | payer BC, SELFPAY | END 2021-12-18 23:59 | disposition short-term general hospital (02) | LOC: LABSPEC 13:37 | PROVIDERS: PCP Family Medicine; Referring Provider Physician Assistant; Visit Provider Physician Assistant | DX: U07.1 COVID-19 (principal) | CPT/HCPCS: 87635; U0003; U0005 ==

== ENCOUNTER 2022-02-21 11:00 | Emergency (ER) | payer MEDICARE, SELFPAY ==
[2022-02-21 11:03] VITALS: BP 133/82; PULSE 84; RESP 17; TEMP 36.1; O2SAT 100; BMI 32.3
[2022-02-21 11:54] VITALS: RESP 16
--- NOTE | 2022-02-21 12:11 | RAD_ITS ---
STUDY: X-RAY CHEST REASON FOR EXAM: Male, 67 years old. Chest injury TECHNIQUE: PA and lateral views of the chest. COMPARISON: Comparison is made with prior study of 02/12/2021. FINDINGS: Hyperinflation. The lungs are clear. There is no demonstrated pleural abnormality. Sternal cerclage wires and vascular clips are present from a prior sternotomy and coronary artery bypass graft procedure (CABG). Normal mediastinum and chanda. Normal visualized pulmonary arteries. There is atherosclerotic calcification of the aortic arch with tortuosity. There are diffuse degenerative changes of the visualized thoracic spine. Normal visualized ribs, clavicles, and shoulders. There is no demonstrated abnormality of the visualized soft tissue structures of the upper abdomen. RAD/Chest PA and Lateral IMPRESSION: Hyperinflation. The lungs are clear. Electronically Signed: Jasmeet Babcock MD at 12:54 EDT ,
[2022-02-21] MEDS: Diphth,Pertuss(Acell),Tet Vac 0.5 ML Vial IM (12:18)
--- NOTE | 2022-02-21 13:25 | EDS_ITS ---
HPI <JEN Vizcaino - Last Filed: 02/21/22 13:30> History of Present Illness Chief Complaint: Fall Narrative Narrative: 67-year-old male with history of CAD, lipidemia, hypertension on Plavix presents the emerge department with right-sided chest pain after falling against his truck earlier this morning. Patient presents with a hematoma to the right side of his chest along with a small abrasion, because the patient is on Plavix, is not concern for internal bleeding. Patient denies any shortness of breath, fever chills nausea vomiting. PFSH <JEN Vizcaino - Last Filed: 02/21/22 13:30> [facility] Medical History (Reviewed 10/03/21 @ 15:56 by Bakari Joseph INTERNET MARKETING STRATEGIST, INTERNET MARKETING STRATEGIST-C) Atherosclerotic heart disease of [place] coronary artery without angina pectoris Essential hypertension History of coronary artery stent placement (06/12/21) Non-rheumatic mitral regurgitation Pure hypercholesterolemia Home Medications aspirin 81 mg tablet,delayed release 81 mg PO DAILY 01/29/21 [History Last Taken 06/12/21] cholecalciferol (vitamin D3) 10 mcg (400 unit) capsule 10 mcg PO DAILY 05/28/21 [History Last Taken 06/11/21 09:00] magnesium 250 mg tablet 1,500 mg PO DAILY tab 10/03/21 [History Last Taken Unknown] clopidogrel 75 mg tablet 75 mg PO QDAY #90 tab 01/03/22 [Rx Last Taken Unknown] lisinopril 2.5 mg tablet 2.5 mg PO DAILY #90 tab 01/03/22 [Rx Last Taken Unknown] Allergy/AdvReac Type Severity Reaction Status Date / Time niacin AdvReac Severe Hyperpigmen Verified 02/21/22 11:02 tation Vjmjyoy-CIS-WzW Reductase AdvReac Severe Aches Verified 02/21/22 11:02 Inhibitor [Enauzhg-Zgx-Nbf Reductase Inhibitor] prednisone AdvReac Unknown Fast HR Verified 02/21/22 11:02 Family History (Reviewed 10/03/21 @ 15:56 by Bakari Joseph INTERNET MARKETING STRATEGIST, INTERNET MARKETING STRATEGIST-C) Uncle CAD (coronary artery disease) Uncle CAD (coronary artery disease) Surgical History H/O coronary artery bypass surgery (02/27/21) History of herniorrhaphy History of left heart catheterization (LHC) (02/21/21) History of umbilical hernia repair Presence of coronary angioplasty implant and graft (~06/12/21) Social History Smoking Status: Never smoker alcohol intake: never substance use type: does not use caffeine: Yes ROS <JEN Vizcaino - Last Filed: 02/21/22 13:30> ROS ED ROS Narrative Constitutional: Negative for fever, chills, weight loss or gain, weakness Eyes: Negative for vision loss, vision change, double vision ENT: Negative for any hearing changes, ringing in the ears, dizziness, discharge, pain Nose: Negative for any congestion, runny nose, sinus pain, allergies Throat: Negative for any sore throat hoarseness, voice changes, Cardiovascular: Negative for any chest pain, tightness, palpitations, racing heartbeat Respiratory: Negative for any coughs, sputum production, coughing, hemoptysis, shortness of breath, shortness of breath on exertion, Gastrointestinal: Negative for any abdominal pain, nausea, vomiting, diarrhea, constipation, blood in stool, blood in vomit : Negative for any urinary frequency, incontinence, dysuria, retention, blood in urine Muscle skeletal: Negative for any muscle joint pain, stiffness, myalgias, arthralgias, neck pain, back pain. Positive for right sided chest pain, swelling, for right sided swelling to the right lower extremity Neurological: Negative for any headache, head injury, dizziness, syncope, numbness or tingling Skin: Negative for any rashes, lumps, itching, abrasions, lacerations Psychiatric: Negative for any depression, anxiety, stress, suicidal ideation, homicidal ideation Hematologic: Negative for any easy bruising, excessive bruising, easy bleeding Allergies: Negative for any eczema, hives, rash EXAM <JEN Vizcaino - Last Filed: 02/21/22 13:30> Physical Exam Const Vital Signs: 02/21/22 11:03 02/21/22 11:54 02/21/22 12:08 Temperature 96.9 F L Temperature Source Temporal Pulse Rate 84 Respiratory Rate 17 16 Respiratory Depth Normal Respiratory Pattern Normal Blood Pressure 133/82 H Blood Pressure Mean 99 Pulse Ox 100 Oxygen Delivery Method Room Air Room Air Positive well nourished and well developed General Appearance ED: well developed HEENT Reports TM's clear and moist mucous membranes Tympanic Membrane ED: Yes TM's clear Eyes PERRL and EOMs intact bilaterally Neck no lymphadenopathy and supple Chest Wall Chest Narrative: Patient does have a right-sided hematoma to the right pectoralis muscle, there is slight edema, ecchymosis, abrasion. Negative for any crepitus. Resp normal respiratory effort and clear to auscultation bilaterally Cardio regular rate GI normal to inspection, nondistended, normoactive bowel sounds Back/Spine no CVA tenderness Extremity normal to inspection Neuro oriented x3 and CN's II-XII intact bilaterally Sensorium / Orientation: alert Psych mental status grossly normal Skin no rashes or lesions noted <Dr. Trent Masters, DO - Last Filed: 03/03/22 07:14> Physical Exam Const Vital Signs: 02/21/22 11:03 02/21/22 11:54 02/21/22 12:08 Temperature 96.9 F L Temperature Source Temporal Pulse Rate 84 Respiratory Rate 17 16 Respiratory Depth Normal Respiratory Pattern Normal Blood Pressure 133/82 H Blood Pressure Mean 99 Pulse Ox 100 Oxygen Delivery Method Room Air Room Air MDM <Jones Ha NP-C - Last Filed: 02/21/22 13:30> [facility] Narrative Medical decision making narrative: Patient appears well, patient appears nontoxic, vital signs are stable. Patient presents the emergency department after a fall, right chest wall pain, hematoma. Patient's physical exam was grossly unremarkable, negative for any crepitus, deep tissue injury. Patient did receive a chest x-ray, 2 view read by the emergency room attending, this showed hyperinflation, the lungs are clear negative for any fractures. Patient instructed to take Tylenol for any pain, do structured to ice the area and to return for any worsening symptoms. Patient verbally understands the importance of follow-up. Radiography Chest X-Ray - ED: 2 View Diagnostic Testing: Clinical Impression(s) from Imaging Studies Chest X-Ray 02/21/22 12:11 IMPRESSION: Hyperinflation. The lungs are clear. Electronically Signed: Jasmeet Babcock MD at 12:54 EDT , <Dr. Trent Masters, DO - Last Filed: 03/03/22 07:14> [facility] Narrative Medical decision making narrative: Patient seen in conjunction with nurse practitioner. Agree with assessment, physical exam, evaluation. Patient initially seen for chest wall pain secondary to fall. He has a hematoma on the right side of his chest. Lungs are clear to auscultation. No obvious bony tenderness. Patient alert and awake and nontoxic-appearing. Patient has history of use of Plavix which I suspect is contributing to his hematoma. His chest pain does not sound cardiac and is not having dyspnea. I did obtain a chest x-ray which on my interpretation shows no acute cardiopulmonary process. There are no obvious rib fractures. Patient counseled on findings. I feel he safe to be discharged home. He is counseled to use ice and compression as possible. Return for new or worsening symptoms. Impression: 1. Mechanical fall 2. Chest wall contusion 3. Chest wall hematoma Radiography Diagnostic Testing: Clinical Impression(s) from Imaging Studies Chest X-Ray 02/21/22 12:11 IMPRESSION: Hyperinflation. The lungs are clear. Electronically Signed: Jasmeet Babcock MD at 12:54 EDT , Discharge Plan Triage Chief Complaint: Fall ED Midlevel Provider: Jones Ha ED Provider: Trent Masters Dx/Rx/DC Orders Clinical Impression: Chest wall injury Instructions: ED Hematoma Prescriptions: No Action aspirin [Adult Low Dose Aspirin] 81 mg tablet,delayed release (DR/EC) 81 mg PO DAILY RF: 0 cholecalciferol (vitamin D3) 10 mcg (400 unit) capsule 10 mcg PO DAILY RF: 0 magnesium 250 mg tablet 1,500 mg PO DAILY RF: 0 lisinopril 2.5 mg tablet 2.5 mg PO DAILY Qty: 90 RF: 3 clopidogrel [Plavix] 75 mg tablet 75 mg PO QDAY Qty: 90 RF: 3 Primary Care Provider: Carlos Finley Referrals: Carlos Finley PA [Primary Care Provider] - Print Language: Wolof Disposition Disposition: Home, Self Care Discharge Date/Time: 02/21/22 23:59
[2022-02-21 13:39] VITALS: BP 142/67; PULSE 71; RESP 15; O2SAT 98
== END 2022-02-21 13:40 | disposition home or self-care (01) ==
PROVIDERS: Emergency Provider Student in an Organized Health Care Education/Training Program; PCP Physician Assistant; Visit Provider Student in an Organized Health Care Education/Training Program
DX: S20.20XA Contusion of thorax, unspecified, initial encounter (principal); I25.10 Atherosclerotic heart disease of native coronary artery without angina pectoris; I10 Essential (primary) hypertension; Z23 Encounter for immunization; Z79.82 Long term (current) use of aspirin; Z79.899 Other long term (current) drug therapy; Z79.01 Long term (current) use of anticoagulants; Z95.5 Presence of coronary angioplasty implant and graft; W19.XXXA Unspecified fall, initial encounter
CPT/HCPCS: 71046; 90471; 90715; 99282

== ENCOUNTER → 2022-05-15 | Outpatient (CLI) | payer MEDICARE, SELFPAY ==
[2022-05-15 09:23] LABS: AST(SGOT) 21 U/L (15-37); Alanine Aminotransfer ALT/SGPT 29 U/L (16-61); Albumin, Serum 3.6 g/dL (3.2-5.0); Alkaline Phosphatase 49 U/L (45-117); Bilirubin, Direct 0.13 mg/dL (0.00-0.30); Cholesterol 220 mg/dL (200); Globulin 4.4 g/dL (2.2-4.2); High Density Lipoprotein 58 mg/dL; Triglycerides 89 mg/dL; Very Low Density Lipoprotein 18 mg/dL (5-40)
== END | disposition home or self-care (01) ==
LOC: LAB 08:31
PROVIDERS: Nurse Practitioner Family; PCP Physician Assistant; Visit Provider Internal Medicine Cardiovascular Disease
DX: E78.00 Pure hypercholesterolemia, unspecified (principal)
CPT/HCPCS: 36415; 80061; 80076

== ENCOUNTER → 2022-09-30 | Outpatient (CLI) | payer MEDICARE, OTHER, SELFPAY ==
--- NOTE | 2022-09-30 15:48 | STRESSREP_ITS ---
Stress Test Report Date: 09-30-2022 Procedure: Exercise tolerance test/imaging study Indications: Chest pain; CAD status post PCI status post CABG Consent: Per the patient Procedure: The patient exercised on a Angelo protocol for 9 minutes completing Stage III achieving a peak heart rate of 140 bpm (94% predicted maximal heart rate) with resting blood pressure of 122/70 mmHg and a peak blood pressure 180/74 mmHg and a peak MET capacity of 10 METs. The baseline ECG demonstrated normal sinus rhythm. The peak exercise ECG demonstrated no obvious ECG changes. There were no cardiac dysrhythmias pretest, during exercise, or recovery. The functional capacity was considered good. There was notation of mild chest pain pretest, during exercise, and recovery. The examination was discontinued secondary to chest discomfort. Impression: 1. Technically adequate (percent predicted maximal heart rate greater than 85%) exercise tolerance test 2. Peak exercise ECG no obvious ECG change 3. There were no cardiac dysrhythmias pretest, during exercise, or recovery 4. Nuclear images pending Myocardial perfusion imaging study: Technique: The patient was injected with 14.6 mCi of technetium 99m Cardiolite and subsequently rest SPECT Cardiolite nuclear imaging was obtained in the horizontal long, vertical long, and short axis views. The patient exercised on a Angelo protocol for 9 minutes completing Stage III achieving a peak heart rate of 140 bpm (94% predicted maximal heart rate) with resting blood pressure of 122/70 mmHg and a peak blood pressure 180/74 mmHg and a peak MET capacity of 10 METs. The patient was injected with 44.7 mCi of technetium 99m Cardiolite and subsequently stress SPECT Cardiolite nuclear imaging was obtained in the ho rizontal long, vertical long, and short axis views. A gated Cardiolite study at peak stress was obtained. Interpretation: Rest and stress SPECT Cardiolite nuclear imaging status post realignment, n ormalization, and attenuation correction, demonstrates on the preattenuation correction images the appearance of diminished myocardial perfusion/tracer uptake in portions of the basal to mid inferior segments and status post stress additional areas of diminished myocardial perfusion/tracer uptake in portions of the basal to mid inferolateral segments. These findings are not reproduced on the post attenuation correction images.. There is end systolic thickening and brightening. The gated Cardiolite study demonstrates myocardial thickening and inward wall motion. The reported LVEF is 64%. Impression: 1. Rest and stress SPECT Cardiolite nuclear imaging demonstrate myocardial perfusion changes on the preattenuation correction images concerning for an area of previous myocardial injury/infarction with associated gaye-infarct related myocardial ischemia in the basal to mid inferolateral segments which are not reproduced on the post attenuation correction images thus demonstrating a di screpancy and a concern based upon the preattenuation correction images of an area of stress-induced myocardial ischemia. 2. The gated Cardiolite study reports an LVEF of 64%. This note was generated with Ziteation software. It may contain incorrect words, spelling, and punctuation that were not noted in checking the note before signing.
== END | disposition home or self-care (01) ==
PROVIDERS: PCP Physician Assistant; Visit Provider Nurse Practitioner Family
DX: R07.9 Chest pain, unspecified (principal); I25.10 Atherosclerotic heart disease of native coronary artery without angina pectoris; E78.00 Pure hypercholesterolemia, unspecified; I10 Essential (primary) hypertension; Z95.1 Presence of aortocoronary bypass graft; Z95.5 Presence of coronary angioplasty implant and graft
CPT/HCPCS: 78452; 93017; A9500; A4216

== ENCOUNTER 2022-10-07 18:04 | Inpatient (IN) | payer MEDICARE, OTHER, SELFPAY ==
[2022-10-07] VITALS (7 sets, daily range): BP systolic 130–159; BP diastolic 76–96; PULSE 58–75; RESP 12–18; TEMP 35.9–36.8; O2SAT 97–100; BMI 32.1
--- NOTE | 2022-10-07 18:32 | EKG12_ITS ---
Test Reason : CP Blood Pressure : / mmHG Vent. Rate : 068 BPM Atrial Rate : 068 BPM P-R Int : 206 ms QRS Dur : 104 ms QT Int : 416 ms P-R-T Axes : 057 -04 046 degrees QTc Int : 442 ms Normal sinus rhythm Normal ECG Confirmed by LEONOR LONG, JULI ([id number]), editorial cartoonist SILAS LEIVA ([id number]) on 10/08/2022 11:21:19 AM Referred By: Confirmed By:JULI GALVEZ MD
--- NOTE | 2022-10-07 18:33 | ED.VIS.CHEST ---
HPI History of Present Illness Chief Complaint: Chest Pain Informant: patient and spouse/S.O. Onset/Context/Timing Onset: Weeks Timing: Intermittent Quality: Positive for Tightness Location: Substernal Current Severity: Gone Maximum Severity: Severe Worsened By: Exertion Relieved By: Rest Associated Symptoms: Positive for Nausea and Dyspnea; Negative for Vomiting, Diaphoresis, Cough, Fever, Lightheadedness, Acid Reflux or Palpitations Narrative Narrative: Patient is a 67-year-old male history of nonrheumatic aortic regurgitation, atherosclerotic heart disease, status post coronary bypass surgery, pure hypercholesterolemia and essential hypertension who presents with increased creasing duration, frequency and severity of midsternal chest pain. informed that he had an abnormal stress test and is scheduled for cardiac cath with Dr. Villegas this coming Thursday. He is presently pain-free. He has noticed that his taste less activity to precipitate the chest tightness which he describes as a gripping tight sensation. He does endorse mild shortness of breath and nausea. He denies diaphoresis. He denies radiation. He denies history of hiatal hernia, reflux or peptic ulcer disease. He denies black or maroon-colored stool. He denies leg pain, swelling discoloration. He denies orthopnea or PND Prior Similar Symptoms: Yes (Undergoing cardiac cath this coming Thursday) Recent Illness/Hospitalization: Yes ([facility]) CVD Risk Factors: Positive for Hypertension; Negative for Diabetes, Hypercholesterolemia, Family History 1' </=55 or Smoking PE Risk Factors: Negative for Recent Travel/Surgery, Recent Immobilization, Prior DVT or PE, Cancer or OCP + Smoking + >/=35 TAD Risk Factors: Positive for Hypertension; Negative for Marfan's Syndrome or Family History [facility] Medical History Atherosclerotic heart disease of [place] coronary artery without angina pectoris Essential hypertension History of coronary artery stent placement (06/12/21) Non-rheumatic mitral regurgitation Pure hypercholesterolemia Home Medications aspirin 81 mg tablet,delayed release (Adult Low Dose Aspirin) 81 mg PO DAILY 01/29/21 [History Last Taken 06/12/21] clopidogrel 75 mg tablet (Plavix) 75 mg PO QDAY #90 tabs 01/03/22 [Rx Last Taken Unknown] lisinopril 2.5 mg tablet 2.5 mg PO DAILY #90 tabs 01/03/22 [Rx Last Taken Unknown] cholecalciferol (vitamin D3) 125 mcg (5,000 unit) tablet 125 mcg PO DAILY 03/10/22 [History Last Taken Unknown] magnesium oxide 400 mg PO DAILY 03/10/22 [History Last Taken Unknown] ezetimibe 10 mg tablet (Zetia) 10 mg PO DAILY #30 tabs 05/20/22 [Rx Last Taken Unknown] cholestMD PO 09/22/22 [History Last Taken Unknown] Allergy/AdvReac Type Severity Reaction Status Date / Time niacin AdvReac Severe Hyperpigmen Verified 10/07/22 18:05 tation Sxlbhkf-AGK-ThY Reductase AdvReac Severe Aches Verified 10/07/22 18:05 Inhibitor [Niwdyph-Jnx-Gga Reductase Inhibitor] prednisone AdvReac Unknown Fast HR Verified 10/07/22 18:05 Family History Uncle CAD (coronary artery disease) Uncle CAD (coronary artery disease) Mother Cancer Breast CA Diabetes Hyperlipidemia Hypertension Father Emphysema lung Other Heart disease Surgical History H/O coronary artery bypass surgery (02/27/21) History of herniorrhaphy History of left heart catheterization (LHC) (02/21/21) History of umbilical hernia repair Presence of coronary angioplasty implant and graft (~06/12/21) Social History (Updated 10/07/22 @ 18:[address] Catarino Handy MD) household members: spouse Smoking Status: Never smoker alcohol intake: never substance use type: does not use caffeine: Yes ROS ROS ED Constitutional Constitutional ED: Denies chills, fever(s), subjective or sweats Eyes Eyes: Reports none; Denies blurry vision or change in vision ENT ENT ED: Denies ear pain, rhinorrhea or sore throat Cardiovascular Cardiovascular: Reports as per HPI; Denies orthopnea or paroxysmal nocturnal dyspnea Respiratory/Chest Respiratory/Chest: Reports dyspnea on exertion; Denies cough, dyspnea, orthopnea or paroxysmal nocturnal dyspnea Gastrointestinal Gastrointestinal: Reports nausea; Denies abdominal pain, constipation, diarrhea, melena or vomiting Musculoskeletal Musculoskeletal: Denies arthralgias, back pain, myalgias or neck pain Integumentary Denies Abrasions or rash Neurologic Neurologic: Denies headache(s), paresthesias or weakness Endocrine Endocrinology: Denies polydipsia or polyphagia Hematologic/Lymphatic Hematologic/Lymphatic: Denies easy bleeding or easy bruising EXAM Physical Exam Const Vital Signs: 10/07/22 18:05 10/07/22 18:55 10/07/22 18:57 Temperature 96.7 F L Temperature Source Temporal Pulse Rate 71 Respiratory Rate 18 Respiratory Effort Normal Non-Labored Blood Pressure 159/83 H Blood Pressure Mean 108 Pulse Ox 100 Oxygen Delivery Method Room Air Room Air 10/07/22 18:57 10/07/22 19:24 10/07/22 20:00 Temperature Temperature Source Pulse Rate 69 58 L Respiratory Rate 18 12 Respiratory Effort Blood Pressure 139/96 H 152/92 H 131/78 H Blood Pressure Mean 110 112 95 Pulse Ox 97 97 Oxygen Delivery Method Room Air Room Air Positive well nourished, well developed and obese General Appearance ED: well developed and NAD; Negative for pallor Nutritional Appearance: obese HEENT HEENT Narrative: Head is atraumatic normocephalic. Ears normal. Nares patent. Mucosa moist. Eyes PERRL and EOMs intact bilaterally General Eye ED: Negative for pale conjunctiva or scleral icterus Neck no lymphadenopathy, supple and no JVD Resp normal respiratory effort and clear to auscultation bilaterally Cardio regular rate, regular rhythm, S1 normal heart sound, S2 normal heart sound and no murmurs GI normal to inspection, nondistended, normoactive bowel sounds, soft to palpation, non-tender, non-distended and no masses; Negative for hepatosplenomegaly Back/Spine no CVA tenderness Extremity normal to inspection General Extremety ED: Negative for edema or pulses abnormal General Extremity: Negative for edema or pulses abnormal Neuro oriented x3, CN's II-XII intact bilaterally and no sensory deficits noted Sensorium / Orientation: awake and alert Psych mental status grossly normal Skin no rashes or lesions noted and no wounds General Skin Exam: Negative for jaundice or pallor MDM MDM MDM Narrative Medical decision making narrative: Patient presents with chest pain that is concerning for accelerating angina. EKG, appropriate blood work including troponin were ordered. Aspirin was also ordered since he is only taking [address] Villegas once EKG and troponin have been reviewed to discuss anticoagulation. Per discussion with Dr. Jones Villegas he does not wish for patient to be anticoagulated. Agrees with aspirin. Observation status with attempt to cath tomorrow depending on availability of lab. Patient was made aware of this. Lab Data Labs: Laboratory Results - last 24 hr 10/07/22 10/07/22 19:00 19:00 WBC 5.9 RBC 4.66 Hgb 14.4 Hct 43.3 MCV 92.9 MCH 30.9 MCHC 33.3 RDW Std Deviation 41.6 RDW Coeff of [place] 12.2 Plt Count 206 MPV 9.0 Immature Gran % (Auto) 0.300 Neut % (Auto) 48.6 Lymph % (Auto) 34.5 [place] % (Auto) 12.4 H Eos % (Auto) 3.7 Baso % (Auto) 0.5 Absolute Neuts (auto) 2.9 Absolute Lymphs (auto) 2.03 Nucleated RBC % 0 Sodium 139 Potassium 4.3 Chloride 106 Carbon Dioxide 29.0 Anion Gap 4 L BUN 22 H Creatinine 1.03 Estim Creat Clear Calc 66.85 Est GFR (MDRD) Af Amer 93 Est GFR (MDRD) Non-Af 77 BUN/Creatinine Ratio 21.4 H Glucose 103 Calcium 9.2 Troponin I High Sens 12 Radiography Diagnostic Testing: Clinical Impression(s) from Imaging Studies Chest X-Ray 10/07/22 19:05 IMPRESSION: There are no acute findings. Electronically Signed: Kolton Cannon MD at 19:22 EST Reading Location ID and State: [facility] / [place] , Service support , EKG Initial EKG: Attestation: I personally reviewed and interpreted this EKG as follows: Interpretation: Sinus Rhythm (Sinus rhythm rate of 68. EKG is normal. This is without pain.) Discharge Plan Dx/Rx/DC Orders Clinical Impression: Accelerating angina, Atherosclerotic heart disease of [place] coronary artery without angina pectoris, Essential hypertension, Pure hypercholesterolemia Disposition Disposition: Acute Care Hospital [facility]
[2022-10-07] MEDS: Aspirin 81 MG TAB.CHEW 324 MG PO (18:52)
--- NOTE | 2022-10-07 19:05 | RAD_ITS ---
STUDY: X-RAY CHEST REASON FOR EXAM: Male, 67 years old. chest pain TECHNIQUE: XR Chest 1 View COMPARISON: 3 FINDINGS: There is atherosclerotic calcification of the aortic arch with tortuosity. There are diffuse degenerative changes of the visualized thoracic spine. There is degenerative osteoarthritis of the bilateral shoulders. There is no demonstrated pleural abnormality. There are multiple median sternotomy wires. Normal size heart. Normal mediastinum and chanda. Normal visualized pulmonary arteries. There is no demonstrated abnormality of the visualized soft tissue structures of the upper abdomen. RAD/Chest 1 View (Portable) IMPRESSION: There are no acute findings. Electronically Signed: Kolton Cannon MD at 19:22 EST ,
[2022-10-07 19:15] LABS: Absolute Lymphocyte Count 2.03 X10^3/uL (0.83-4.51); Absolute Neutrophil Count 2.9 X10^3/uL (2.0-7.7); Basophil# 0.03 X10^3/uL; Basophil% 0.5 % (0-1); Eosinophil# 0.22 X10^3/uL; Eosinophils% 3.7 % (0-5); Hematocrit 43.3 % (40-54); Hemoglobin 14.4 g/dL (13.0-16.5); Lymphocyte # 2.03 X10^3/ul (0.83-4.51); Lymphocyte % 34.5 % (19-41); Mean Corp Hgb Conc 33.3 g/dL (32-36); Mean Corpuscular Hgb 30.9 pg (27.0-32.0); Mean Corpuscular Volume 92.9 fL (80-94); Monocyte# 0.73 X10^3/uL; Monocyte% 12.4 % (0-10); NRBC Flagged by Analyzer 0 % (0-5); Neutrophil # 2.86 X10^3/uL (2.7-7.7); Neutrophil % 48.6 % (47-70); Platelet Count 206 K/mm3 (150-450); RBC Distribution Width CV 12.2 % (11.6-14.6); RBC Distribution Width SD 41.6 fl (35.1-43.9); Red Blood Count 4.66 M/mm3 (4.6-6.2); White Blood Count 5.9 K/mm3 (4.4-11.0)
[2022-10-07 19:37] LABS: Anion Gap 4 (5-15); BUN 22 mg/dL (7-18); BUN/Creat Ratio 21.4 RATIO (10-20); Calcium,Total 9.2 mg/dL (8.5-10.1); Chloride 106 mmol/L (98-107); Creatinine, Serum 1.03 mg/dL (0.70-1.30); EST Glomerular Filtration Rate 77 mL/min (>60); Est Glom Filt Rate - Afr Amer 93 mL/min (>60); Estimated Creatinine Clearance 66.85 ml/min; Glucose 103 mg/dL (74-106); Potassium 4.3 mmol/L (3.5-5.1); Sodium Level 139 mmol/L (136-145); Troponin-I HS (w/2H Reflex) 12 pg/mL (3.0-78.0)
--- NOTE | 2022-10-07 20:26 | PCM.HP.STD ---
HPI - General General Date of Admission: 10/07/22 Date of Service: 10/07/22 Chief Complaint: Chest pain HPI Narrative The patient is a 67 y/o M w/ PMHx: CAD s/p PCI and CABG, HTN, HLD, Obesity who presents to the [facility] ED on 10/07/22 with history of onset substernal chest tightness with associated nausea without emesis, diaphoresis and dyspnea which has been worsening in severity and duration as well as more readily coming on with decreased exertion than previously with recent abnormal outpatient stress test with planned upcoming cardiac catheterization this coming Thursday with Dr. Villegas prompting ED evaluation. He notes at its worst the discomfort is rated 7-8 out of 10 in severity however currently it improved to 1-2 out of 10. He was recently traveling and was initially evaluated at a hospital in [place] when he had significant onset of the symptoms. Prior to this he had actually been traveling and hiking without issue. Work-up in the ED included T 96.7, HR 71, BP 159/83, RR 18, 100% on RA, CBC w/ WBC 5.9, Hgb 14.4, Plts 206 without shift, BMP with BUN/Cr 22/1.03 otherwise no marked appearing, troponin 12, CXR without acute findings, EKG with SR without acute evidence of ischemia. In the ED patient administered 324 mg po x 1. ED physician discussed case with Dr. Villegas with intention for possible catheterization in AM. [facility] Medical History Atherosclerotic heart disease of [place] coronary artery without angina pectoris Essential hypertension History of coronary artery stent placement (06/12/21) Non-rheumatic mitral regurgitation Pure hypercholesterolemia Home Medications aspirin 81 mg tablet,delayed release (Adult Low Dose Aspirin) 81 mg PO DAILY 01/29/21 [History Last Taken 06/12/21] clopidogrel 75 mg tablet (Plavix) 75 mg PO QDAY #90 tabs 01/03/22 [Rx Last Taken Unknown] lisinopril 2.5 mg tablet 2.5 mg PO DAILY #90 tabs 01/03/22 [Rx Last Taken Unknown] cholecalciferol (vitamin D3) 125 mcg (5,000 unit) tablet 125 mcg PO DAILY 03/10/22 [History Last Taken Unknown] magnesium oxide 400 mg PO DAILY 03/10/22 [History Last Taken Unknown] ezetimibe 10 mg tablet (Zetia) 10 mg PO DAILY #30 tabs 05/20/22 [Rx Last Taken Unknown] cholestMD See Rx Instructions .Route .COMPLEX 09/22/22 [History Last Taken 10/07/22] Allergy/AdvReac Type Severity Reaction Status Date / Time niacin AdvReac Severe Hyperpigmen Verified 10/07/22 18:05 tation [id number]-OyR Reductase AdvReac Severe Aches Verified 10/07/22 18:05 Inhibitor [Vdbkzfq-Lwh-Ezb Reductase Inhibitor] prednisone AdvReac Unknown Fast HR Verified 10/07/22 18:05 Family History Uncle CAD (coronary artery disease) Uncle CAD (coronary artery disease) Mother Cancer Breast CA Diabetes Hyperlipidemia Hypertension Father Emphysema lung Other Heart disease Surgical History H/O coronary artery bypass surgery (02/27/21) History of herniorrhaphy History of left heart catheterization (LHC) (02/21/21) History of umbilical hernia repair Presence of coronary angioplasty implant and graft (~06/12/21) Social History (Updated 10/07/22 @ 18:[address] Catarino Handy MD) household members: spouse Smoking Status: Never smoker alcohol intake: never substance use type: does not use caffeine: Yes ROS ROS Narrative Admission Review of Systems: CONSTITUTIONAL: No weight loss, fever, chills, + weakness or fatigue. HEENT: Eyes: No visual loss, blurred vision, double vision or yellow sclerae. Ears, Nose, Throat: No hearing loss, sneezing, congestion, runny nose or sore throat. SKIN: No rash or itching, lesions, wounds. CARDIOVASCULAR: + chest pain, chest pressure or chest discomfort, No palpitations, edema, orthopnea, syncopal events. RESPIRATORY: No shortness of breath, cough or sputum, wheezing, hemoptysis. GASTROINTESTINAL: + anorexia, nausea, No vomiting or diarrhea, abdominal pain, melena, BRBPR. GENITOURINARY: No dysuria, frequency, urgency or retention. NEUROLOGICAL: No headache, dizziness, syncope, paralysis, ataxia, numbness or tingling in the extremities, focal weakness, change in bowel or bladder control, seizure. MUSCULOSKELETAL: + muscle, back pain, joint pain or stiffness. HEMATOLOGIC: No anemia, bleeding or bruising. LYMPHATICS: No enlarged nodes. No history of splenectomy. PSYCHIATRIC: No history of depression or anxiety. ENDOCRINOLOGIC: No reports of sweating, cold or heat intolerance. No polyuria or polydipsia. ALLERGIES: No history of asthma, hives, eczema or rhinitis. Vital Signs Vital Signs Vital Signs: 10/07/22 18:05 10/07/22 18:55 10/07/22 18:57 Temperature 96.7 F L Temperature Source Temporal Pulse Rate 71 Respiratory Rate 18 Respiratory Effort Normal Non-Labored Blood Pressure 159/83 H Blood Pressure Mean 108 Pulse Ox 100 Oxygen Delivery Method Room Air Room Air 10/07/22 18:57 10/07/22 19:24 10/07/22 20:00 Temperature Temperature Source Pulse Rate 69 58 L Respiratory Rate 18 12 Respiratory Effort Blood Pressure 139/96 H 152/92 H 131/78 H Blood Pressure Mean 110 112 95 Pulse Ox 97 97 Oxygen Delivery Method Room Air Room Air Weight Weight: 205 lb Body Mass Index (BMI) 32.1 Physical Exam Narrative Physical Examination: General: Awake, alert, oriented x 3 and cooperative, seated upright in the ED bed, discomfort is improved, currently 1-2 out of 10. Skin: Normal color, normal turgor, no icterus, no cyanosis. HEENT: AT/NC, EOMI, PERRLA, MMM, no carotid bruits or JVD noted. Lungs: Mild diminished, greater bases, appropriate effort, no rales, ronchi or wheezing. Heart: Regular rate and rhythm; no gallop, rub audible, some very focal left-sided reproducible chest discomfort. Abdomen: Soft, NTTP, ND, mildly hyperactive BS, no HSM. Extremities: No cyanosis, clubbing, or edema. Neurological: Patient awake, alert, oriented as noted, cognitive function intact; pupils equally reactive to light and accommodation, cranial nerves II-XII grossly normal, moving all 4 extremities, no focal deficits, strength mildly global decrease secondary to acute [place]. Psychiatric: Affect appears fatigued, no acute evidence of depressive or anxiety feelings. Results Lab / Micro Data Result Diagrams: 10/07/22 19:00 10/07/22 19:00 Labs: Laboratory Results - last 24 hr 10/07/22 19:00: WBC 5.9, RBC 4.66, Hgb 14.4, Hct 43.3, MCV 92.9, MCH 30.9, MCHC 33.3, RDW Std Deviation 41.6, RDW Coeff of [place] 12.2, Plt Count 206, MPV 9.0, Immature Gran % (Auto) 0.300, Neut % (Auto) 48.6, Lymph % (Auto) 34.5, [place] % (Auto) 12.4 H, Eos % (Auto) 3.7, Baso % (Auto) 0.5, Absolute Neuts (auto) 2.9, Absolute Lymphs (auto) 2.03, Nucleated RBC % 0 10/07/22 19:00: Sodium 139, Potassium 4.3, Chloride 106, Carbon Dioxide 29.0, Anion Gap 4 L, BUN 22 H, Creatinine 1.03, Estim Creat Clear Calc 66.85, Est GFR (MDRD) Af Amer 93, Est GFR (MDRD) Non-Af 77, BUN/Creatinine Ratio 21.4 H, Glucose 103, Calcium 9.2, Troponin I High Sens 12 Radiology Impression Chest X-Ray 10/07/22 19:05 IMPRESSION: There are no acute findings. Electronically Signed: Kolton Cannon MD at 19:22 EST Reading Location ID and State: [facility] / [place] , Service support , Assessment & Plan Assessment/Plan (1) Chest pain: PLAN: Plan The patient is a 67 y/o M w/ PMHx: CAD s/p PCI and CABG, HTN, HLD, Obesity who presents to the [facility] ED on 10/07/22 with history of onset substernal chest tightness with associated nausea without emesis, diaphores and dyspnea which has been worsening in severity and duration as well as more readily coming on with decreased exertion than previously with recent abnormal outpatient stress test with planned upcoming cardiac catheterization this coming Thursday with Dr. Villegas prompting ED evaluation. #1. Chest Pain with recent abnormal stress testing: EKG in ED with sinus rhythm with no acute evidence of ischemia, CXR w/ no acute cardiopulmonary finding, initial trop 12. Will admit to PCU, place on a monitored bed to assure no acute myocardial infarction with serial cardiac enzymes and EKGs. Given recent abnormal stress testing will request involvement of patient's plastics plater, Dr. Villegas for planned cardiac catheterization in AM. N.p.o. after midnight with judicious hydration. FLP in AM. Magnesium level requested. ASA, NG, morphine. #2. CAD: Status post PCI and CABG, continue aspirin, Plavix, lisinopril, not on beta-lisa therapy and noted statin allergy, continue Zetia regimen. #3. Hypertension: Continue home regimen including lisinopril, PRN hydralazine. #4. Hyperlipidemia: Not on statin therapy with noted severe myalgias associated, continue Zetia regimen, FLP in AM. #5. Obesity: Weight loss and lifestyle changes encouraged. #6. DVT prophylaxis: SCDs, Lovenox. Charges/Coding Visit Charges OBSV E&M: 97349 Initial observation care L3
[2022-10-07 21:11] LABS: Reflex Troponin-HS? (from REC) Y
[2022-10-07 21:41] LABS: Troponin-I HS 13 pg/mL (3.0-78.0)
--- NOTE | 2022-10-07 21:45 | EKG12_ITS ---
Test Reason : AM EKG Blood Pressure : / mmHG Vent. Rate : 059 BPM Atrial Rate : 059 BPM P-R Int : 244 ms QRS Dur : 106 ms QT Int : 458 ms P-R-T Axes : 052 -13 035 degrees QTc Int : 453 ms Sinus bradycardia with 1st degree A-V block Otherwise normal ECG When compared with ECG of 07-OCT-2022 22:28, MANUAL COMPARISON REQUIRED, DATA IS UNCONFIRMED Confirmed by ASIA LONG, NATHALY ([id number]), photograph editor SILAS LEIVA ([id number]) on 10/08/2022 1:20:50 PM Referred By: Confirmed By:NATHALY BETANCOURT MD
[2022-10-07 21:57] LABS: Magnesium 1.9 mg/dL (1.6-2.6)
[2022-10-07] MEDS: 0.9% Normal Saline 1,000 ML 100 ML IV (22:54)
[2022-10-08] VITALS (22 sets, daily range): BP systolic 110–149; BP diastolic 67–88; PULSE 58–90; RESP 12–20; TEMP 36.1–36.6; O2SAT 95–100
[2022-10-08 01:28] LABS: Troponin-I HS 14 pg/mL (3.0-78.0)
[2022-10-08 05:23] LABS: Absolute Lymphocyte Count 1.87 X10^3/uL (0.83-4.51); Absolute Neutrophil Count 1.9 X10^3/uL (2.0-7.7); Basophil# 0.02 X10^3/uL; Basophil% 0.4 % (0-1); Eosinophils% 4.4 % (0-5); Hematocrit 42.6 % (40-54); Hemoglobin 14.5 g/dL (13.0-16.5); Lymphocyte # 1.87 X10^3/ul (0.83-4.51); Lymphocyte % 41.2 % (19-41); Mean Corpuscular Hgb 31.3 pg (27.0-32.0); Mean Corpuscular Volume 91.8 fL (80-94); Mean Platelet Vol. 8.9 fl (6.2-12.0); Monocyte# 0.57 X10^3/uL; Monocyte% 12.6 % (0-10); NRBC Flagged by Analyzer 0 % (0-5); Neutrophil # 1.87 X10^3/uL (2.7-7.7); Neutrophil % 41.2 % (47-70); Platelet Count 188 K/mm3 (150-450); RBC Distribution Width CV 12.1 % (11.6-14.6); RBC Distribution Width SD 40.4 fl (35.1-43.9); Red Blood Count 4.64 M/mm3 (4.6-6.2); White Blood Count 4.5 K/mm3 (4.4-11.0)
--- NOTE | 2022-10-08 05:55 | EKG12_ITS ---
Test Reason : CP ADMIT Blood Pressure : / mmHG Vent. Rate : 059 BPM Atrial Rate : 059 BPM P-R Int : 226 ms QRS Dur : 104 ms QT Int : 432 ms P-R-T Axes : 051 -19 037 degrees QTc Int : 427 ms Sinus bradycardia with 1st degree A-V block Otherwise normal ECG When compared with ECG of 07-OCT-2022 18:11, MANUAL COMPARISON REQUIRED, DATA IS UNCONFIRMED Confirmed by ASIA LONG, NATHALY ([id number]), editor map SILAS LEIVA ([id number]) on 10/08/2022 1:23:27 PM Referred By: Confirmed By:NATHALY BETANCOURT MD
[2022-10-08 06:00] LABS: ALB/GLOB Ratio 0.8 RATIO (0.9-2.4); AST(SGOT) 14 U/L (15-37); Alanine Aminotransfer ALT/SGPT 21 U/L (16-61); Albumin, Serum 2.8 g/dL (3.2-5.0); Alkaline Phosphatase 44 U/L (45-117); Anion Gap 6 (5-15); BUN 17 mg/dL (7-18); BUN/Creat Ratio 20.6 RATIO (10-20); Calcium,Total 8.3 mg/dL (8.5-10.1); Chloride 108 mmol/L (98-107); Cholesterol 180 mg/dL (200); Creatinine, Serum 0.83 mg/dL (0.70-1.30); EST Glomerular Filtration Rate 99 mL/min (>60); Est Glom Filt Rate - Afr Amer 120 mL/min (>60); Estimated Creatinine Clearance 82.96 ml/min; Globulin 3.7 g/dL (2.2-4.2); Glucose 90 mg/dL (74-106); High Density Lipoprotein 47 mg/dL; Potassium 3.7 mmol/L (3.5-5.1); Protein, Total 6.5 g/dL (6.4-8.2); Sodium Level 139 mmol/L (136-145); Triglycerides 80 mg/dL; Very Low Density Lipoprotein 16 mg/dL (5-40)
[2022-10-08] MEDS: Lisinopril 2.5 MG Tablet PO (06:18)
[2022-10-08] MEDS: Aspirin E.C. 81 MG Tablet PO (06:18)
--- NOTE | 2022-10-08 07:12 | CON.PCM.CA_ITS ---
Assessment & Plan Assessment/Plan (1) Accelerating angina: PLAN: The patient has symptoms concerning for ongoing angina pectoris/accelera ting angina pectoris. He has underlying CAD and is status post PCI and CABG. He has undergone a recent stress nuclear imaging study which has raised concerns about previous areas of ID in Sy[place] ID related myocardial ischemia. At the present time his cardiac enzymes and ECG demonstrate no acute changes. He has been recommended for further evaluation with diagnostic cardiac catheterization. The procedure and risk were discussed with him. He was agreeable to this approach. (2) CAD (coronary artery disease): PLAN: The patient has a history of CAD. His previous CAD history was reviewed with him. He will continue medical therapy and evaluation as noted. (3) History of coronary artery stent placement: PLAN: The patient has undergone previous PCI as noted as well. There would be concerns as to whether or not he has developed any in-stent restenosis as part of his etiology for his symptoms, etc. At the moment he will continue medical therapy and follow-up. (4) H/O coronary artery bypass surgery: PLAN: The patient has undergone CABG as noted. During his last cardiac catheterization his GOMEZ graft and his SVG sequential graft were both patent. There could be concerns as to whether or not he has developed any graft related lesions that could contribute to his symptoms and/or findings. He will continue medical therapy and further evaluation as noted. (5) Pure hypercholesterolemia: PLAN: The patient should continue medical management as best as possible taking into consideration his report of a statin allergy. (6) Essential hypertension: PLAN: The patient's blood pressure will be monitored and his medicines adjusted accordingly. Addt'l Comments The patient's case was previously discussed and reviewed with Dr. Handy of the [facility] emergency department staff and Dr. Ludwig of the [facility] staff. This note was generated using a voice recognition system and there may be incorrect words, spelling or punctuation that were not noted when reviewing the office note prior to saving. HPI Consult Data Date of Consult: 10/08/22 HPI Narrative HPI Narrative: SERGIO JOSEPH, is a 67 year old white male who presents for cardiovascular consultation based upon a history of underlying CAD, PCI, CABG, hyperlipidemia, hypertension with concerns of ongoing chest discomfort and abnormal stress nuclear imaging study. As you recall, his heart catheterization on 02/01/2021 prior to bypass surgery showed severe distal left main coronary artery disease, previously placed stent in the circumflex artery patent, previously placed stent in the right coronary artery with severe in-stent stenosis.? He underwent CABG on 02-27-21 with a GOMEZ to LAD and a sequential SVG to the OM/PDA system.? He subsequently underwent underwent heart catheterization on 06/12/2021 that showed patent GOMEZ to LAD and patent SVG to OM1 and sequential portion to RPDA.? However there was concern about his tolowa dee-ni' system with respect to his left main coronary artery leading into the LCx system.? He proceeded with drug-eluting stent to distal left main and OM1. He was on vacation in [place] area.? He states when running from car to airport he developed exertional chest discomfort.? He states while on vacation he had multiple episodes of chest tightness.? There were times when hiking and doing strenuous activities that he did not have such discomfort, but there were times during simple activity he had such chest tightness.? Prior to returning home he underwent ER evaluation in [facility].? His ECG showed no acute changes.? His troponin was negative x2.? Chest x-ray was negative for acute pathology.? Chest CT scan was negative for pulmonary embolism, aneurysm, and dissection.? There is also comment on pulmonary cysts seen in the right middle lobe measuring 2.3 cm and 2.3 cm.? He states he has been having ongoing chest discomfort. It has become more frequent. He describes it as various forms with respect to either being an ache across his chest as well as a injury type feeling over his left chest area. It can be somewhat associated with nausea. He has had no emesis, diaphoresis, or acute respiratory changes. There has been no report of orthopnea, PND, or peripheral pitting edema. There has been no near-syncope or syncope. Based upon his ongoing symptoms he did undergo a recent stress nuclear imaging study. The results are noted below. Based upon the results it was felt reasonable to patient be considered for reevaluation in the cardiac catheterization laboratory. This was tentatively scheduled for 10-10-2022. However based upon the patient's ongoing chest discomforts he presented to the [facility] emergency department in the interim for further evaluation. There his cardiac enzymes were negative and his ECG demonstrated no acute ECG findings. He was subsequently brought into the hospital for further inpatient evaluation and care. At the moment he appears to be resting comfortably. He states he has not had a recurrent acute chest discomfort event as he did yesterday x2. His subsequent cardiac enzymes have remained negative. His ECG is demonstrated no acute ECG changes. [facility] Medical History Atherosclerotic heart disease of tolowa dee-ni' coronary artery without angina pectoris Essential hypertension History of coronary artery stent placement (06/12/21) Non-rheumatic mitral regurgitation Pure hypercholesterolemia Home Medications aspirin 81 mg tablet,delayed release (Adult Low Dose Aspirin) 81 mg PO DAILY 0 01/29/21 [History Last Taken 06/12/21] clopidogrel 75 mg tablet (Plavix) 75 mg PO QDAY #90 tabs 01/03/22 [Rx Last Taken Unknown] lisinopril 2.5 mg tablet 2.5 mg PO DAILY #90 tabs 01/03/22 [Rx Last Taken Unknown] cholecalciferol (vitamin D3) 125 mcg (5,000 unit) tablet 125 mcg PO DAILY 03/10/22 [History Last Taken Unknown] magnesium oxide 400 mg PO DAILY 03/10/22 [History Last Taken Unknown] cholestMD See Rx Instructions .Route .COMPLEX 09/22/22 [History Last Taken 10/07/22] Allergy/AdvReac Type Severity Reaction Status Date / Time niacin AdvReac Severe Hyperpigmen Verified 10/07/22 18:05 tation Dbkqznv-DRH-EeQ Reductase AdvReac Severe Aches Verified 10/07/22 18:05 Inhibitor [Damryit-Uyx-Yzg Reductase Inhibitor] prednisone AdvReac Unknown Fast HR Verified 10/07/22 18:05 Family History Uncle CAD (coronary artery disease) Uncle CAD (coronary artery disease) Mother Cancer Breast CA Diabetes Hyperlipidemia Hypertension Father Emphysema lung Other Heart disease Surgical History H/O coronary artery bypass surgery (02/27/21) History of herniorrhaphy History of left heart catheterization (LHC) (02/21/21) History of umbilical hernia repair Presence of coronary angioplasty implant and graft (~06/12/21) Social History (Updated 10/07/22 @ 18:[address] Catarino Handy MD) household members: spouse Smoking Status: Never smoker alcohol intake: never substance use type: does not use caffeine: Yes ROS Constitutional Constitutional: Reports as per HPI Eyes Eyes: Reports as per HPI ENT HEENT: Reports as per HPI Cardiovascular Cardiovascular: Reports chest pain, chest pain at rest, chest pain with activity and nausea Respiratory/Chest Respiratory/Chest: Reports as per HPI Gastrointestinal Gastrointestinal: Reports as per HPI Genitourinary Genitourinary: Reports as per HPI Musculoskeletal Musculoskeletal: Reports as per HPI Integumentary Integumentary: Reports as per HPI Neurologic Neurologic: Reports as per HPI Psychiatric Psychiatric: Reports as per HPI Physical Exam Const alert, oriented x3 and no apparent distress Orientation / Consciousness: awake HEENT normocephalic, head/scalp atraumatic and hearing grossly normal bilaterally Eyes PERRL, EOMs intact bilaterally, conjunctivae normal and no scleral icterus Neck full ROM, supple and no JVD Carotids: normal carotid upstroke Chest inspection of chest normal Chest: midline sternotomy incision Resp normal respiratory effort and clear to auscultation bilaterally Cardio regular rate, regular rhythm, S1 normal heart sound and S2 normal heart sound GI normal to inspection, nondistended, normoactive bowel sounds Extremity no pedal edema Skin no rashes or lesions noted Psych mental status grossly normal Risk Stratification Risk Stratification Applicable: Yes Age >/= 65: Yes >/= 3 CAD Risk Factors (HTN, HLD, DM, family hx of CAD, or current smoker): Yes Aspirin Use in the Past 7 Days: Yes Severe Angina (>/= episodes in 24 hours): Yes EKG ST Changes >/= 0.5mm: No Positive Cardiac Marker: No DAVID Risk Stratification Score: 4 DAVID % Risk: 20% Risk Procedure Criteria Type of Procedure Procedure Type: Elective Elective Risks - COVID COVID Risk Discussion: The surgeon/proceduralist and patient have discussed in detail the risk of exposure to and/or potential harm posed by the COVID-19 virus with having a surgery/procedure at this time versus the risk of delaying the surgery/procedure. It is not possible to know either the risk of delaying the surgery or procedure or chance of getting an infection with perfect accuracy, but a joint decision was made between the patient and the surgeon/proceduralist to proceed at this time with the scheduled surgery/procedure as indicated on the consent form. Objective Data Vital Signs: Vital Signs Temp Pulse Resp BP Pulse Ox O2 Del Method 97.2 F L 58 L 16 115/78 96 Room Air 10/08/22 04:00 10/08/22 04:00 10/08/22 04:00 10/08/22 04:00 10/08/22 04:00 10/08/22 04:00 Oxygen Delivery Method Room Air Weight: 204 lb 12.951 oz Body Mass Index (BMI) 32.1 Lab / Micro Data Result Diagrams: 10/08/22 05:12 10/08/22 05:12 Labs: Laboratory Results - last 24 hr 10/07/22 19:00: WBC 5.9, RBC 4.66, Hgb 14.4, Hct 43.3, MCV 92.9, MCH 30.9, MCHC 33.3, RDW Std Deviation 41.6, RDW Coeff of Adrian 12.2, Plt Count 206, MPV 9.0, Immature Gran % (Auto) 0.300, Neut % (Auto) 48.6, Lymph % (Auto) 34.5, [place] % (Auto) 12.4 H, Eos % (Auto) 3.7, Baso % (Auto) 0.5, Absolute Neuts (auto) 2.9, Absolute Lymphs (auto) 2.03, Nucleated RBC % 0 10/07/22 19:00: Sodium 139, Potassium 4.3, Chloride 106, Carbon Dioxide 29.0, Anion Gap 4 L, BUN 22 H, Creatinine 1.03, Estim Creat Clear Calc 66.85, Est GFR (MDRD) Af Amer 93, Est GFR (MDRD) Non-Af 77, BUN/Creatinine Ratio 21.4 H, Glucose 103, Calcium 9.2, Troponin I High Sens 12 10/07/22 21:17: Troponin I High Sens 13 10/07/22 21:17: Magnesium 1.9 10/08/22 01:00: Troponin I High Sens 14 10/08/22 05:12: WBC 4.5, RBC 4.64, Hgb 14.5, Hct 42.6, MCV 91.8, MCH 31.3, MCHC 34.0, RDW Std Deviation 40.4, RDW Coeff of Adrian 12.1, Plt Count 188, MPV 8.9, Immature Gran % (Auto) 0.200, Neut % (Auto) 41.2 L, Lymph % (Auto) 41.2 H, [place] % (Auto) 12.6 H, Eos % (Auto) 4.4, Baso % (Auto) 0.4, Absolute Neuts (auto) 1.9 L, Absolute Lymphs (auto) 1.87, Nucleated RBC % 0 10/08/22 05:12: Sodium 139, Potassium 3.7, Chloride 108 H, Carbon Dioxide 25.0, Anion Gap 6, BUN 17, Creatinine 0.83, Estim Creat Clear Calc 82.96, Est GFR (MDRD) Af Amer 120, Est GFR (MDRD) Non-Af 99, BUN/Creatinine Ratio 20.6 H, Glucose 90, Calcium 8.3 L, Total Bilirubin 0.30, AST 14 L, ALT 21, Alkaline Phosphatase 44 L, Total Protein 6.5, Albumin 2.8 L, Globulin 3.7, Albumin/Globulin Ratio 0.8 L, Triglycerides 80, Cholesterol 180, LDL Cholesterol 117, VLDL Cholesterol 16, HDL Cholesterol 47 Cardiology Labs/Tests 10/07/22 19:00: WBC 5.9, RBC 4.66, Hgb 14.4, Hct 43.3, MCV 92.9, MCH 30.9, MCHC 33.3, Plt Count 206, MPV 9.0, Immature Gran % (Auto) 0.300, Neut % (Auto) 48.6, Lymph % (Auto) 34.5, [place] % (Auto) 12.4 H, Eos % (Auto) 3.7, Baso % (Auto) 0.5, Absolute Neuts (auto) 2.9, Nucleated RBC % 0 10/07/22 19:00: Sodium 139, Potassium 4.3, Chloride 106, Carbon Dioxide 29.0, Anion Gap 4 L, BUN 22 H, Creatinine 1.03, Est GFR (MDRD) Af Amer 93, Est GFR (MDRD) Non-Af 77, BUN/Creatinine Ratio 21.4 H, Glucose 103, Calcium 9.2 10/07/22 21:17: Magnesium 1.9 10/08/22 05:12: WBC 4.5, RBC 4.64, Hgb 14.5, Hct 42.6, MCV 91.8, MCH 31.3, MCHC 34.0, Plt Count 188, MPV 8.9, Immature Gran % (Auto) 0.200, Neut % (Auto) 41.2 L , Lymph % (Auto) 41.2 H, [place] % (Auto) 12.6 H, Eos % (Auto) 4.4, Baso % (Auto) 0.4, Absolute Neuts (auto) 1.9 L, Nucleated RBC % 0 10/08/22 05:12: Sodium 139, Potassium 3.7, Chloride 108 H, Carbon Dioxide 25.0, Anion Gap 6, BUN 17, Creatinine 0.83, Est GFR (MDRD) Af Amer 120, Est GFR (MDRD) Non-Af 99, BUN/Creatinine Ratio 20.6 H, Glucose 90, Calcium 8.3 L, Total Bilirubin 0.30, Triglycerides 80, Cholesterol 180, LDL Cholesterol 117, VLDL Cholesterol 16, HDL Cholesterol 47 Rhythm: Sinus rhythm EKG: Sinus rhythm/sinus bradycardia; no acute ECG changes Echocardiogram from 02/15/2021: Interpretation Summary Normal LV size. Left ventricular systolic function is normal. The estimated ejection fraction is 60 %. Stage 1 diastolic dysfunction. Mild (1+) eccentric aortic valve insufficiency. Pulmonary artery systolic pressure is 28 mmHg. Contrast injection was performed. Stress test on 02/15/2021: Conclusion: Exercise myocardial perfusion stress test with evidence of mid inferior ischemia at a moderate workload. Chest discomfort noted during exercise suggestive of angina. Preserved ejection fraction. Stress Test Report Date: 09-30-2022 Procedure: Exercise tolerance test/imaging study Indications: Chest pain; CAD status post PCI status post CABG Consent: Per the patient Procedure: The patient exercised on a Angelo protocol for 9 minutes completing Stage III achieving a peak heart rate of 140 bpm (94% predicted maximal heart rate) with resting blood pressure of 122/70 mmHg and a peak blood pressure 180/74 mmHg and a peak MET capacity of 10 METs. The baseline ECG demonstrated normal sinus rhythm.? The peak exercise ECG demonstrated no obvious ECG changes. There were no cardiac dysrhythmias pretest, during exercise, or recovery.? The functional capacity was considered good. There was notation of mild chest pain pretest, during exercise, and recovery. The examination was discontinued secondary to chest discomfort. Impression: 1.? Technically adequate (percent predicted maximal heart rate greater than 85%) exercise tolerance test 2.? Peak exercise ECG no obvious ECG change 3.? There were no cardiac dysrhythmias pretest, during exercise, or recovery 4.? Nuclear images pending Myocardial perfusion imaging study: Technique: The patient was injected with 14.6 mCi of technetium 99m Cardiolite and subsequently rest SPECT Cardiolite nuclear imaging was obtained in the horizontal long, vertical long, and short axis views. The patient exercised on a Angelo protocol for 9 minutes completing Stage III achieving a peak heart rate of 140 bpm (94% predicted maximal heart rate) with resting blood pressure of 122/70 mmHg and a peak blood pressure 180/74 mmHg and a peak MET capacity of 10 METs. The patient was injected with 44.7 mCi of technetium 99m Cardiolite and subsequently stress SPECT Cardiolite nuclear imaging was obtained in the horizontal long, vertical long, and short axis views.? A gated Cardiolite study at peak stress was obtained. Interpretation: Rest and stress SPECT Cardiolite nuclear imaging status post realignment, normalization, and attenuation correction, demonstrates on the preattenuation correction images the appearance of diminished myocardial perfusion/tracer uptake in portions of the basal to mid inferior segments and status post stress additional areas of diminished myocardial perfusion/tracer uptake in portions of the basal to mid inferolateral segments.? These findings are not reproduced on the post attenuation correction images..? There is end systolic thickening and brightening.? The gated Cardiolite study demonstrates myocardial thickening and inward wall motion.? The reported LVEF is 64%. Impression: 1.? Rest and stress SPECT Cardiolite nuclear imaging demonstrate myocardial perfusion changes on the preattenuation correction images concerning for an area of previous myocardial injury/infarction with associated gaye-infarct related myocardial ischemia in the basal to mid inferolateral segments which are not reproduced on the post attenuation correction images thus demonstrating a discrepancy and a concern based upon the preattenuation correction images of an area of stress-induced myocardial ischemia. 2.? The gated Cardiolite study reports an LVEF of 64%. Heart catheterization from 02/21/2021: CONCLUSIONS Severe distal left main coronary artery disease, previously placed stent in the circumflex artery patent, previously placed stent in the right coronary artery with severe in-stent stenosis. RECOMMENDATIONS Surgery consult for coronary revascularization CORONARY ANGIOGRAPHY DOMINANCE:? Right Dominant LEFT HEART ASSESSMENT Left Ventricular Ejection Fraction: by Echo pending % Normal Left Ventricular systolic function LEFT MAIN: Distal 95% LEFT ANTERIOR DESCENDING ARTERY: Mild luminal irregularities less than 30% CIRCUMFLEX ARTERY: No significant disease noted MID CIRC: Previously placed stent is patent RIGHT CORONARY ARTERY: PROX RCA: Instent restenosis 90 long % COMPLICATIONS No Complications Heart catheterization from 06/12/2021: CONCLUSIONS Elevated Left Ventricular End Diastolic Pressure Normal LV size, wall motion,and systolic function LVEF: by LV gram 55 % [place] Multivessel CAD GOMEZ to LAD: patent SVG to OM1 and sequential portion to RPDA: patent RECOMMENDATIONS Risk factor modification Medical therapy Case discussed / reviewed with Dr. Golden of Interventional Cardiology CORONARY ANGIOGRAPHY DOMINANCE:? Right Dominant LEFT HEART ASSESSMENT Left Ventricular Ejection Fraction: by LV Gram 55 % Normal LV wall motion Elevated Left Ventricular End Diastolic Pressure LVEDP: 17 mmHg LEFT MAIN: distal: 95 % Stenosis LEFT ANTERIOR DESCENDING ARTERY: OSTIAL LAD: 75 % Stenosis PROX LAD: diffuse: 25 % Stenosis MID LAD: mid to distal vessel filling from antegrade flow but predominantly from GOMEZ graft flow with no angiographically significant appearing disease distal to the graft attachement CIRCUMFLEX ARTERY: OSTIAL CIRC: 75 % Stenosis PROX CIRC: 25 % Stenosis MID CIRC: Previously placed stent is patent OM 1: Proximal - subtotally occluded: filling predominantly from antegrade flow and only partially from SVG graft flow RIGHT CORONARY ARTERY: PROX RCA: Previously placed stent has an instent 99 % restenosis with the distal RCA system filling from antegrade flow and SVG graft flow GRAFTS: ?GOMEZ graft to the Mid LAD is patent Saphenous Vein graft to the 1st OM is patent with a sequential portion to the RPDA being patent AORTIC ROOT: Angiographically normal Cardiac intervention from 06/12/2021: CONCLUSIONS Successful PCI with DIVINE to distal LM and OM1 CAB02/27/2021: [facility] CABG x3 with Dr. Brandon on 02/27/2021 GOMEZ to mid LAD SVG to OM2 sequencing to RPDA Radiography Diagnostic Testing: Radiology Impression Chest X-Ray 10/07/22 19:05 IMPRESSION: There are no acute findings. Electronically Signed: Kolton Cannon MD at 19:22 EST ,
[2022-10-08] MEDS: 0.9% Normal Saline 1,000 ML 100 ML IV ×2 (08:35→17:05)
--- NOTE | 2022-10-08 11:13 | PN.HOSP_ITS ---
Subjective Subjective Doing well, no issues overnight. Troponins have continued to be negative, he does continue to have a small amount of chest pain Objective Data Objective Data Vital Signs: Vital Signs Temp Pulse Resp BP Pulse Ox O2 Del Method 96.9 F L 61 12 143/88 H 97 Room Air 10/08/22 08:38 10/08/22 08:38 10/08/22 08:38 10/08/22 08:38 10/08/22 08:38 10/08/22 09:10 Oxygen Delivery Method Room Air Weight: 204 lb 12.951 oz Body Mass Index (BMI) 32.1 Intake & Output: Intake and Output for Last 24 Hours 10/07/22 10/08/22 10/09/22 03:59 03:59 03:59 Intake Total 968.33 / 968.33 Balance 968.33 / 968.33 Lab / Micro Data Result Diagrams: 10/08/22 05:12 10/08/22 05:12 Labs: Laboratory Results - last 24 hr 10/07/22 19:00: WBC 5.9, RBC 4.66, Hgb 14.4, Hct 43.3, MCV 92.9, MCH 30.9, MCHC 33.3, RDW Std Deviation 41.6, RDW Coeff of Adrian 12.2, Plt Count 206, MPV 9.0, Immature Gran % (Auto) 0.300, Neut % (Auto) 48.6, Lymph % (Auto) 34.5, [place] % (Auto) 12.4 H, Eos % (Auto) 3.7, Baso % (Auto) 0.5, Absolute Neuts (auto) 2.9, Absolute Lymphs (auto) 2.03, Nucleated RBC % 0 10/07/22 19:00: Sodium 139, Potassium 4.3, Chloride 106, Carbon Dioxide 29.0, Anion Gap 4 L, BUN 22 H, Creatinine 1.03, Estim Creat Clear Calc 66.85, Est GFR (MDRD) Af Amer 93, Est GFR (MDRD) Non-Af 77, BUN/Creatinine Ratio 21.4 H, Glucose 103, Calcium 9.2, Troponin I High Sens 12 10/07/22 21:17: Troponin I High Sens 13 10/07/22 21:17: Magnesium 1.9 10/08/22 01:00: Troponin I High Sens 14 10/08/22 05:12: WBC 4.5, RBC 4.64, Hgb 14.5, Hct 42.6, MCV 91.8, MCH 31.3, MCHC 34.0, RDW Std Deviation 40.4, RDW Coeff of Adrian 12.1, Plt Count 188, MPV 8.9, Immature Gran % (Auto) 0.200, Neut % (Auto) 41.2 L, Lymph % (Auto) 41.2 H, [place] % (Auto) 12.6 H, Eos % (Auto) 4.4, Baso % (Auto) 0.4, Absolute Neuts (auto) 1.9 L, Absolute Lymphs (auto) 1.87, Nucleated RBC % 0 10/08/22 05:12: Sodium 139, Potassium 3.7, Chloride 108 H, Carbon Dioxide 25.0, Anion Gap 6, BUN 17, Creatinine 0.83, Estim Creat Clear Calc 82.96, Est GFR (MDRD) Af Amer 120, Est GFR (MDRD) Non-Af 99, BUN/Creatinine Ratio 20.6 H, Glucose 90, Calcium 8.3 L, Total Bilirubin 0.30, AST 14 L, ALT 21, Alkaline Phosphatase 44 L, Total Protein 6.5, Albumin 2.8 L, Globulin 3.7, Albumin/Globulin Ratio 0.8 L, Triglycerides 80, Cholesterol 180, LDL Cholesterol 117, VLDL Cholesterol 16, HDL Cholesterol 47 Radiography Diagnostic Testing: Radiology Impression Chest X-Ray 10/07/22 19:05 IMPRESSION: There are no acute findings. Electronically Signed: Kolton Cannon MD at 19:22 EST Reading Location ID and State: [facility] / [place] , Service support , Physical Exam Narrative General: Alert, Oriented x3, Cooperative, No apparent distress HEENT: Atraumatic, PERRLA, EOMI, Normocephalic Oral: Moist Mucosa Neck: Supple, No JVD Lungs: Clear to auscultation, Normal air movement, No rhonchi, No wheeze, No rales Cardiovascular: Regular rate, Regular Rhythm, Normal S1, Normal S2, No murmurs Abdomen: Soft, Non Tender, Non-Distended, No Hepato-splenomegaly Extremities: No edema, Capillary Refill Less than 3 Seconds Skin: No rashes, No breakdown Musculoskeletal: No Tenderness to Palpation of Joints or Extremities Neurological: Cranial nerves II-XII grossly intact, Motor Exam 5/5 strength t hroughout, Sensory exam intact to light touch and pain Psych/Mental Status: Normal Affect, Appropriate Assessment & Plan Assessment/Plan (1) Chest pain: PLAN: Plan 1. Chest Pain with recent abnormal stress testing/CAD status post stenting CABG/HTN/HLD He had a stress test on 09/30/2022 that demonstrated myocardial perfusion changes on the preattenuation correction images concerning for an area of previous [place] with gaye-infarct related myocardial ischemia in the basal to mid inferior lateral segments ? We will continue with his aspirin and Plavix secondary to his history of stenting Which ? Continue with his Zetia as he is allergic to statins ? We will consult cardiology who is recommending a heart cath for evaluation he will remain n.p.o. ? Continue with lisinopril, may need to be initiated on Coreg or another beta- lisa depending on the heart cath shows DVT: SCDs Charges/Coding Visit Charges OBSV E&M: 56592 Subsequent observation care L2
--- NOTE | 2022-10-08 12:45 | EKG12_ITS ---
Test Reason : post pci Blood Pressure : / mmHG Vent. Rate : 061 BPM Atrial Rate : 061 BPM P-R Int : 204 ms QRS Dur : 108 ms QT Int : 434 ms P-R-T Axes : 050 -18 012 degrees QTc Int : 436 ms Poor data quality, interpretation may be adversely affected Normal sinus rhythm Normal ECG Confirmed by LEONOR LONG, JULI ([id number]), medical editor SILAS LEIVA ([id number]) on 10/15/2022 7:52:44 AM Referred By: Noemi Confirmed By:JULI GALVEZ MD
--- NOTE | 2022-10-08 14:16 | CL.I_ITS ---
Patient Name: SERGIO JOSEPH Study Date: 10/08/2022 Performing: Erin Golden MD Ht: 67 inches 170.18 cm : 1955 Wt: 205.1 lbs 92.9 kg Age: 67 Gender: male BSA: 2.04 PROCEDURE(S) PERFORMED IC12-(36469/C9600)DIVINE W/WO PTCA, SINGLE CORONARY ARTERY IC12-(34934/C9600)DIVINE W/WO PTCA, SINGLE CORONARY ARTERY CLINICAL PROFILE AND CO-MORBIDITIES Indications: Worsening Angina, Suspected CAD Heart Failure: None Stress/Imaging Stress Test w/SPECT MPI: Yes Result: Positive Intermediate Risk Stress Test with SPECT MPI: Positive Intermediate Risk Angina Classification Anginal Classification w/in 2 Weeks: CCS III CAD Presentations: Unstable angina. CONCLUSIONS Successful DIVINE to OM1 and dLM RECOMMENDATIONS DESCRIPTION OF PROCEDURE The patient arrived to the procedure lab. The risks and benefits of the procedure as well as a full description of our services here and current unavailability of surgical backup were fully explained to the patient and/or their significant other prior to the catheterization. The Timeout was completed, verifying the correct patient and procedure. The patient's procedural site was prepped and draped in the usual fashion. Local anesthetic was given subcutaneously to right groin region with Lidocaine 2% Using a modified Seldinger technique,arterial access was obtained via the right femoral artery, a 4Fr sheath was inserted Right Coronary Artery selective angiography was then performed in multiple views using a 5 Fr. 3DRC (Ángel) catheter. Saphenous Vein graft to the OM 2 and PDA selective angiography was performed in multiple views using a 4 Fr. 3DRC catheter. Left internal mammary artery graft to the LAD selective angiography was performed in multiple views using a 4 Fr. 3DRC catheter. Left Ventriculography was performed in LARA projection using a 4 Fr. Pigtail catheter. LV to AO pullback pressures were then recorded.The images were reviewed and options discussed. A decision was then made to proceed with an Intervention, IVUS or other adjunct procedure. Arterial sheath was exchanged for a 6 Fr Sheath. xb3.5 Guide catheter was inserted and engaged into the LCA. bmw Guide wire was advanced to the Circumflex. emerge 2.00 x 12 Balloon catheter was advanced across lesion in the first obtuse marginal, proximal. PTCA balloon inflated at 8 atms for 16 secs. PTCA balloon inflated at 10 atms for 12 secs. orsiro 2.5 x 13 Drug Eluting stent was advanced across the lesion in the first obtuse marginal, proximal. Angiogram performed post stent deployment. orsiro 3.5 x 9 Drug Eluting stent was advanced across the lesion in the left main distal Angiogram performed post stent deployment. orsiro 2.5 x 9 Drug Eluting stent was advanced across the lesion in the first obtuse marginal, proximal. Angiogram performed post stent deployment. Contrast was injected through the sheath and the Right Iliac and Femoral artery were assessed for possible closure device. The arterial sheath was pulled and a Perclose closure device was deployed for hemostasis INTERVENTION INFORMATION LESION SITE: 1st OM (Proximal) Lesion Complexity: High/C, chronic total occlusion: No, lesion at bifurcation: Yes, thrombus present: No, lesion length: 12 mm, culprit lesion: Yes, Previously treated lesion: No Pre Stenosis: 99 % Pre intervention DAVID flow: 2 PROCEDURE: Drug Eluting Stent with pre dilatation. Post Stenosis: 0 % Post intervention DAVID flow: 3 Lesion Devices: Campbell .014 BMW Totz Straight 190cm Cordis 6 Fr XB3.5 100cm Guide Catheter Angel Sci EMERGE MR 2.00x12 BALLOON [facility] [employer] MR DIVINE 2.5x13 Biotronik SureFire [place] MR DIVINE 2.5x9 LESION SITE: Left Main (Distal) Lesion Complexity: High/C, chronic total occlusion: No, lesion at bifurcation: Yes, thrombus present: No, lesion length: 8 mm, culprit lesion: Yes, Previously treated lesion: No Pre Stenosis: 70 % Pre intervention DAVID flow: 3 PROCEDURE: Drug Eluting Stent Post Stenosis: 0 % Post intervention DAVID flow: 3 Lesion Devices: [facility] MR DIVINE 3.5x9 COMPLICATIONS No Complications PROCEDURE MEDICATIONS Versed 1 mg IV Fentanyl 50 mcg IV Fentanyl 25 mcg IV Oxygen: 2 L/min via nasal cannula Heparin 6000 unit(s) IV 10/08/2022 11:04:55 Plavix 75 mg PO 10/08/2022 10:45:28 SUMMARY OF HEMODYNAMIC DATA Time AIR REST ECG 10:15:07 LV 123/8, 27 10:49:12 LV 126/0, 22 10:49:21 LV 127/0, 28 10:50:18 LV 129/-4, 24 10:50:27 LVp 127/-3, 22 10:50:32 AOp 128/67 (95) 10:50:39 AO 129/69 (97) SA 10:50:53 Signed By Erin Golden MD On 10/08/2022 14:15:32 Erin Golden MD
--- NOTE | 2022-10-08 18:08 | CL.D_ITS ---
Patient Name: SERGIO JOSEPH Study Date: 10/08/2022 Performing: Jones Villegas MD Ht: 67 inches 170.18 cm : 1955 Wt: 205.1 lbs 92.9 kg Age: 67 Gender: male BSA: 2.04 PROCEDURE(S) PERFORMED DC03-(30418)LHC/COR/LV/CABG IC12-(52800/C9600)DIVINE W/WO PTCA, SINGLE CORONARY ARTERY IC12-([id number]/C9600)DIVINE W/WO PTCA, SINGLE CORONARY ARTERY CLINICAL PROFILE AND INDICATIONS Indications: Worsening Angina, Suspected CAD Heart Failure: None Stress/Imaging Stress Test w/SPECT MPI: Yes Result: Positive Intermediate RiskStress Test with SPECT MPI: Positive Intermediate Risk Angina Classification Anginal Classification w/in 2 Weeks: CCS III CAD Presentations: Unstable angina. CONCLUSIONS Elevated Left Ventricular End Diastolic Pressure Normal LV size, wall motion,and systolic function LVEF: by LV gram 65 % [place] Multivessel CAD GOMEZ to LAD: patent SVG sequential graft to OM1 and RPDA patent: of note: there does not appear to be an OM1 arising from the SVG graft RECOMMENDATIONS Risk factor modification Medical therapy Referred for immediate PCI DESCRIPTION OF PROCEDURE The patient arrived to the procedure lab. The risks and benefits of the procedure as well as a full description of our services here and current unavailability of surgical backup were fully explained to the patient and/or their significant other prior to the catheterization. The Timeout was completed, verifying the correct patient and procedure. The patient's procedural site was prepped and draped in the usual fashion. Local anesthetic was given subcutaneously to right groin region with Lidocaine 2%. Using a modified Seldinger technique, arterial access was obtained via the right femoral artery, a 4Fr sheath was inserted Right Coronary Artery selective angiography was then performed in multiple views using a 5 Fr. 3DRC (Ángel) catheter. Saphenous Vein graft to the OM 2 and PDA selective angiography was performed in multiple views using a 4 Fr. 3DRC catheter. Left internal mammary artery graft to the LAD selective angiography was performed in multiple views using a 4 Fr. 3DRC catheter. Left Ventriculography was performed in LARA projection using a 4 Fr. Pigtail catheter. LV to AO pullback pressures were then recorded.Contrast was injected through the sheath and the Right Iliac and Femoral artery were assessed for possible closure device.The arterial sheath was pulled and a Perclose closure device was deployed for hemostasis CORONARY ANGIOGRAPHY DOMINANCE: Right Dominant LEFT HEART ASSESSMENT Left Ventricular Ejection Fraction: by LV Gram 65 % Normal LV wall motion Elevated Left Ventricular End Diastolic Pressure LVEDP: 22 mmHg LEFT MAIN: Previously placed stent has an instent hazy 25 - 50 % restenosis LEFT ANTERIOR DESCENDING ARTERY: OSTIAL LAD: 75 % Stenosis PROX LAD: diffuse: 25 % Stenosis MID LAD: mid to distal vessel filling from antegrade flow but predominantly from GOMEZ graft flow with no angiographically significant disease distal to the graft attachment, mid to distal vessel filling from antegrade flow but predominantly from GOMEZ graft flow with no angiographically significant disease distal to the graft attachment DIAGONAL 1: Proximal - Mild luminal irregularities CIRCUMFLEX ARTERY: OSTIAL CIRC: Previously placed stent is patent PROX CIRC: Previously placed stent is patent MID CIRC: Previously placed stent is patent, prior to the take off of OM1: 90 % Stenosis RIGHT CORONARY ARTERY: PROX RCA: Previously placed stent has an instent 99 % restenosis with the distal RCA system filling from antegrade flow and SVG graft flow GRAFTS: GOMEZ graft to the Mid LAD is patent Saphenous Vein graft to the 1st OM is patent and subsequently sequencing to the RPDA (of note: there does not appear to be 1st OM arising from the SVG graft) AORTIC ROOT: Angiographically normal COMPLICATIONS No Complications PROCEDURE MEDICATIONS Versed 1 mg IV Fentanyl 50 mcg IV Fentanyl 25 mcg IV Oxygen: 2 L/min via nasal cannula Heparin 6000 unit(s) IV 10/08/2022 11:04:55 Plavix 75 mg PO 10/08/2022 10:45:28 SUMMARY OF HEMODYNAMIC DATA Time AIR REST ECG 10:15:07 LV 123/8, 27 10:49:12 LV 126/0, 22 10:49:21 LV 127/0, 28 10:50:18 LV 129/-4, 24 10:50:27 LVp 127/-3, 22 10:50:32 AOp 128/67 (95) 10:50:39 AO 129/69 (97) SA 10:50:53 Signed By Jones Villegas MD On 10/08/2022 18:07:07 Jones Villegas MD
[2022-10-09] VITALS (7 sets, daily range): BP systolic 117–122; BP diastolic 62–81; PULSE 66–90; RESP 16; TEMP 36.6–36.9; O2SAT 96–98
[2022-10-09] MEDS: 0.9% Normal Saline 1,000 ML 100 ML IV (02:35)
[2022-10-09 05:22] LABS: Hematocrit 42.2 % (40-54); Hemoglobin 14.1 g/dL (13.0-16.5); Mean Corp Hgb Conc 33.4 g/dL (32-36); Mean Corpuscular Hgb 31.1 pg (27.0-32.0); Platelet Count 188 K/mm3 (150-450); RBC Distribution Width CV 12.3 % (11.6-14.6); RBC Distribution Width SD 42.5 fl (35.1-43.9); Red Blood Count 4.54 M/mm3 (4.6-6.2); White Blood Count 6.1 K/mm3 (4.4-11.0)
[2022-10-09 05:56] LABS: ALB/GLOB Ratio 0.7 RATIO (0.9-2.4); AST(SGOT) 13 U/L (15-37); Alanine Aminotransfer ALT/SGPT 21 U/L (16-61); Albumin, Serum 2.6 g/dL (3.2-5.0); Alkaline Phosphatase 40 U/L (45-117); Anion Gap 6 (5-15); BUN 18 mg/dL (7-18); BUN/Creat Ratio 20.4 RATIO (10-20); Calcium,Total 8.3 mg/dL (8.5-10.1); Chloride 110 mmol/L (98-107); Creatinine, Serum 0.88 mg/dL (0.70-1.30); EST Glomerular Filtration Rate 92 mL/min (>60); Est Glom Filt Rate - Afr Amer 111 mL/min (>60); Estimated Creatinine Clearance 78.24 ml/min; Globulin 3.6 g/dL (2.2-4.2); Glucose 97 mg/dL (74-106); Protein, Total 6.2 g/dL (6.4-8.2); Sodium Level 140 mmol/L (136-145)
[2022-10-09] MEDS: Magnesium Chloride 64 MG Delay Rel.Tablet 128 MG PO (09:12)
[2022-10-09] MEDS: Enoxaparin 40 MG/0.4 ML Syringe SC (09:12)
[2022-10-09] MEDS: Aspirin E.C. 81 MG Tablet PO (09:12)
[2022-10-09] MEDS: Lisinopril 2.5 MG Tablet PO (09:12)
[2022-10-09] MEDS: Clopidogrel Bisulfate 75 MG Tablet PO (09:13)
--- NOTE | 2022-10-09 09:47 | PN.CARD_ITS ---
Subjective Subjective The patient stay she is feeling better overall today. He does have complaints of separate musculoskeletal type discomfort in his chest that have been ongoing since his open heart surgery procedure. Objective Data Vital Signs: Vital Signs Temp Pulse Resp BP Pulse Ox O2 Del Method 98.4 F 85 16 122/79 H 98 Room Air 10/09/22 09:06 10/09/22 09:06 10/09/22 09:06 10/09/22 09:06 10/09/22 09:06 10/09/22 09:06 Oxygen Delivery Method Room Air Weight: 209 lb 7.026 oz Body Mass Index (BMI) 32.1 Intake & Output: Intake and Output for Last 24 Hours 10/07/22 10/08/22 10/09/22 23:59 23:59 23:59 Intake Total 1968.33 / 1968.33 950 / 950 Output Total 400 / 400 Balance 1568.33 / 1568.33 950 / 950 Lab / Micro Data Result Diagrams: 10/09/22 05:08 10/09/22 05:08 Labs: Laboratory Results - last 24 hr 10/09/22 05:08: Sodium 140, Potassium 4.0, Chloride 110 H, Carbon Dioxide 24.0, Anion Gap 6, BUN 18, Creatinine 0.88, Estim Creat Clear Calc 78.24, Est GFR (MDRD) Af Amer 111, Est GFR (MDRD) Non-Af 92, BUN/Creatinine Ratio 20.4 H, Glucose 97, Calcium 8.3 L, Total Bilirubin 0.40, AST 13 L, ALT 21, Alkaline Phosphatase 40 L, Total Protein 6.2 L, Albumin 2.6 L, Globulin 3.6, [place] min/Globulin Ratio 0.7 L 10/09/22 05:08: WBC 6.1, RBC 4.54 L, Hgb 14.1, Hct 42.2, MCV 93.0, MCH 31.1, MCHC 33.4, RDW Std Deviation 42.5, RDW Coeff of Adrian 12.3, Plt Count 188, MPV 9.0 Cardiology Labs/Tests 10/09/22 05:08: Sodium 140, Potassium 4.0, Chloride 110 H, Carbon Dioxide 24.0, Anion Gap 6, BUN 18, Creatinine 0.88, Est GFR (MDRD) Af Amer 111, Est GFR (MDRD) Non-Af 92, BUN/Creatinine Ratio 20.4 H, Glucose 97, Calcium 8.3 L, Total Bilirubin 0.40 10/09/22 05:08: WBC 6.1, RBC 4.54 L, Hgb 14.1, Hct 42.2, MCV 93.0, MCH 31.1, MCHC 33.4, Plt Count 188, MPV 9.0 Rhythm: Sinus rhythm EKG: Sinus rhythm/sinus bradycardia; first-degree AV block; inferior SD of indeterminate age cannot be excluded Physical Exam Const alert, oriented x3 and no apparent distress Orientation / Consciousness: awake HEENT normocephalic, head/scalp atraumatic and hearing grossly normal bilaterally Eyes PERRL, EOMs intact bilaterally, conjunctivae normal and no scleral icterus Neck full ROM, supple and no JVD Carotids: normal carotid upstroke Chest inspection of chest normal Chest: midline sternotomy incision Resp normal respiratory effort and clear to auscultation bilaterally Cardio regular rate, regular rhythm, S1 normal heart sound and S2 normal heart sound GI normal to inspection, nondistended, normoactive bowel sounds Extremity no pedal edema Extremity Narrative: Right inguinal area: Femoral artery: Pulses 2+/4+: No bruits: No hematoma Skin no rashes or lesions noted Psych mental status grossly normal Assessment & Plan Assessment/Plan (1) CAD (coronary artery disease): PLAN: The patient has a history of CAD. He has undergone reevaluation with a diagnostic cardiac catheterization. He was noted to have progression of CAD in his LCA distribution. He subsequently underwent PTCA/stent to the left main/LCx distribution. He appears to be stable at this time with no acute ongoing symptoms. (2) History of coronary artery stent placement: PLAN: He has undergone repeat invasive evaluation and subsequent PCI as noted. He will continue medical therapy. (3) H/O coronary artery bypass surgery: PLAN: The patient has undergone CABG as noted. GOMEZ to the LAD was patent. His SVG sequential graft to OM1 and the right PDA was patent. However, it did not appear that there was any OM1 attached to this graft compared to his previous study. He will continue medical therapy. (4) Pure hypercholesterolemia: PLAN: The patient states he has not tolerated previous statins nor has he tolerated nonstatin medication such as Zetia. He states he has read about PCSK9 inhibitors and has not wanted to attempt them based upon concerns of side effects. A lengthy discussion was held with the patient with respect to risk factor modification medical therapy. At the present time he states he is willing to try an alternative statin with rosuvastatin/Crestor at a low dose. If he tolerates it then he would be willing to advance the dose as tolerated. (5) Essential hypertension: PLAN: The patient's blood pressure will be monitored and his medicines adjusted accordingly. Addt'l Comments The patient's case was discussed at length with the patient with his spouse present. (30 minutes) This note was generated using a voice recognition system and there may be incorrect words, spelling or punctuation that were not noted when reviewing the office note prior to saving. Procedure Criteria Type of Procedure Procedure Type: Elective Elective Risks - COVID COVID Risk Discussion: The surgeon/proceduralist and patient have discussed in detail the risk of exposure to and/or potential harm posed by the COVID-19 virus with having a surgery/procedure at this time versus the risk of delaying the surgery/procedure. It is not possible to know either the risk of delaying the surgery or procedure or chance of getting an infection with perfect accuracy, but a joint decision was made between the patient and the surgeon/proceduralist to proceed at this time with the scheduled surgery/procedure as indicated on the consent form.
--- NOTE | 2022-10-09 10:00 | EKG12_ITS ---
Test Reason : morning ekg Blood Pressure : / mmHG Vent. Rate : 056 BPM Atrial Rate : 056 BPM P-R Int : 224 ms QRS Dur : 100 ms QT Int : 450 ms P-R-T Axes : 053 -15 011 degrees QTc Int : 434 ms Sinus bradycardia with 1st degree A-V block Inferior infarct , age undetermined Abnormal ECG When compared with ECG of 08-OCT-2022 13:10, MANUAL COMPARISON REQUIRED, DATA IS UNCONFIRMED Confirmed by ASIA LONG, NATHALY ([id number]), make up editor SILAS LEIVA ([id number]) on 10/17/2022 7:19:49 AM Referred By: Confirmed By:NATHALY BETANCOURT MD
--- NOTE | 2022-10-09 10:22 | PCM.DC ---
Discharge Instructions Diet Discharge Diet: Low fat / Low cholesterol Activity Discharge Activity: Return to Normal Activity Dressing / Incision Call your doctor if your incision/area has: Continuous Slow Oozing, Sudden Increased Bleeding and Foul Smelling Discharge Call your doctor if you observe: Fever of 101 or Higher, Shortness of breath, Dizziness, Fainting spells, Swelling in the ankles, Chest pain and Increased palpitations (irregular heartbeat) Follow Up Care Test Results: Test results from this visit will be discussed in further detail at your follow-up appointment, if applicable. Discharge Plan Admission Admit Date/Time: 10/08/22 15:27 Attending Provider: Sidney Franklin Primary Care Provider: Carlos Finley Consulting Providers: Jones Villegas ; Alethea Ludwig Discharge Orders/Prescriptions Prescriptions: New rosuvastatin [Crestor] 5 mg tablet 5 mg PO DAILY Qty: 30 0RF Continued aspirin [Adult Low Dose Aspirin] 81 mg tablet,delayed release (DR/EC) 81 mg PO DAILY cholecalciferol (vitamin D3) 125 mcg (5,000 unit) tablet 125 mcg PO DAILY magnesium oxide 400 mg magnesium tablet 400 mg PO DAILY cholestMD tablet See Rx Instructions .ROUTE .COMPLEX Rx Instructions: Niacin 400mg, Bergavit, [place], [place] lisinopril 2.5 mg tablet 2.5 mg PO DAILY Qty: 90 3RF clopidogrel [Plavix] 75 mg tablet 75 mg PO QDAY Qty: 90 3RF Referrals / Follow Up: Jones Villegas MD [Med Staff - Active Staff] - Within 1 Month Carlos Finley PA [Primary Care Provider] - Within 1 Week Disposition Disposition (needs filled in before D/C Order can be placed): Home, Self Care
--- NOTE | 2022-10-09 10:27 | CRPHASE1 ---
Patient Communication PHII Cardiac Rehab Discussed with Patient:: Yes Guide to Cardiac Rehab Given to Patient:: Yes Choice Program [facility] CR PHII:: Communication Given to CR, Refer to [facility] Patient Care Assistant:: Nelsy Golden Phase II Cardiac Rehab:: Yes Sessions:: 36 sessions - 3 days/wk, 12 weeks Cardiac Rehabilitation Info Cardiac Rehabilitation Program Information: Cardiac Rehabilitation is important for patients like you who are recovering from a heart problem. Cardiac rehabilitation programs are recognized as integral to the continued care of the patient with coronary heart disease. The cardiac rehabilitation program is designed to optimize a patient's physical, psychological, and social functioning. Health in home caregiver work in cardiac rehabilitation programs and assist you with getting the treatments you need to get stronger and healthier - like exercise, healthy eating habits, and medications. Cardiac rehabilitation has been show to help people with heart problems live longer and have better life enjoyment than people who do not go to cardiac rehabilitation. Please contact the Cardiac Rehabilitation Program at [facility] at in two weeks if you have not heard from them.
--- NOTE | 2022-10-09 10:28 | CRPH1.INSTRU ---
General Education CAD and cardiac anatomy and function:: Patient communicates acknowledgment Explanation of diagnoses and procedures:: Patient communicates acknowledgment Sign/Symptoms of VA:: Patient communicates acknowledgment Antiplatelet therapy: Patient communicates acknowledgment Proper use of NTG-SL: Patient communicates acknowledgment Emergency procedures and activation of EMS: Patient communicates acknowledgment Compliance of all prescribed medications: Patient communicates acknowledgment Dyslipidemia Patient Dyslipidemia Risk Factors Are:: Total Cholesterol, Triglycerides, HDL, LDL Recommendations Include:: Reviewed NCEP/ATP guidelines, Therapeutic Lifestyle Change dietary guidelines Dyslipidemia Response Code:: Patient communicates acknowledgment Hypertension Recommendations Include:: Maintain BP <130/85, DASH dietary guidelines, Moderation of ETOH Hypertension:: Patient communicates acknowledgment Heart Disease Patient Heart Disease Risk Factors Are:: Family history of heart disease < 65 years old, Previous cardiac event Recommendations Include:: Educated family members of their risk, Educated family members of importance of prevention of heart disease Heart Disease Response Code:: Patient communicates acknowledgment
--- NOTE | 2022-10-09 11:00 | CASEMGMT ---
RN CM Face to Face with patient for initial transition planning/care coordination assessment. RN CM introduced self and role at [facility]. Patient sitting in chair, alert and oriented, at bedside. Patient willing to participate in assessment and is able to answer all questions appropriately. Care providers, pharmacy, and demographics verified. Patient wishes to discharge home, denies need for home health at this time. Patient states he has no further needs or concerns at this time. CM to follow for discharge planning needs that may arise. PCP: Tushar Specialists: Bakari can technician Preferred Pharmacy: [facility] Insurance: [id number]/[email or web address] Prescription Benefit: yes Living Will/HPOA: none LNOK: , son Living Arrangements: Patient states he lives with in a single story home with 2 steps and railing to enter. Patient states he is independent at home. Transportation: self, DME/HHC: Patient has lift chair, pulse ox, and apap at home. Patient denies previous HHC or SNF. Disposition Plan: Patient to discharge home with family support and follow-up plans in place. Lashae ACOSTA, RN, CM
--- NOTE | 2022-10-09 11:13 | PHA.DC.MC ---
Pharmacy Service has performed discharge medication reconciliation and counseling for this patient. The patient was counseled on the following discharge medications and changes in medications for homegoing were reviewed. 1. CRESTOR The Reason for Use, instructions for use, and potential side effects were reviewed for all new medications. The patient's questions regarding all of their medications were answered. The patient was able to verbally demonstrate an understanding of their discharge medications. Home Medications aspirin 81 mg tablet,delayed release (Adult Low Dose Aspirin) 81 mg PO DAILY [facility] 01/29/21 lisinopril 2.5 mg tablet 2.5 mg PO DAILY #90 tabs 01/03/22 cholecalciferol (vitamin D3) 125 mcg (5,000 unit) tablet 125 mcg PO DAILY vitamin 03/10/22 magnesium oxide 400 mg PO DAILY supplement 03/10/22 cholestMD See Rx Instructions .Route .COMPLEX supplement 09/22/22 clopidogrel 75 mg tablet (Plavix) 75 mg PO QDAY anti platelet 10/09/22 rosuvastatin 5 mg tablet (Crestor) 5 mg PO DAILY #30 tabs 10/09/22 The patient's discharge medication list was reviewed for discrepancies and discrepancies were resolved.
--- NOTE | 2022-10-09 15:14 | DS.PCM_ITS ---
Providers Date of Admission: 10/08/22 Primary Care Physician: ALYSA Bill Consultations 10/07/22 21:51 Consult: Cardiology Routine Consulting Provider: Jones Villegas Reason for Consult: Chest Pain, recent abnormal stress testing EMERGENT Consult: No MD Notified: Yes Date Notified: 10/07/22 Time Notified: 21:42 Method of Notification: ED Physician Initiated Reason For Visit: CHEST PAIN Diagnosis Discharge Diagnosis (1) CAD (coronary artery disease): Status: Acute Code(s): I25.10 - Atherosclerotic heart disease of [place] coronary artery without angina pectoris (2) History of coronary artery stent placement: Status: Resolved Code(s): Z95.5 - Presence of coronary angioplasty implant and graft (3) H/O coronary artery bypass surgery: Status: Resolved Code(s): Z95.1 - Presence of aortocoronary bypass graft (4) Pure hypercholesterolemia: Status: Chronic Code(s): E78.00 - Pure hypercholesterolemia, unspecified (5) Essential hypertension: Status: Chronic Code(s): I10 - Essential (primary) hypertension Plan 1. Chest Pain with recent abnormal stress testing/CAD status post stenting CABG/HTN/HLD He had a stress test on 09/30/2022 that demonstrated myocardial perfusion changes on the preattenuation correction images concerning for an area of previous AR with gaye-infarct related myocardial ischemia in the basal to mid inferior lateral segments ? We will continue with his aspirin and Plavix secondary to his history of stenting Which ? Continue with his Zetia as he is allergic to statins ? We will consult cardiology who is recommending a heart cath for evaluation he will remain n.p.o. ? Continue with lisinopril, may need to be initiated on Coreg or another beta- lisa depending on the heart cath shows DVT: SCDs Medications at Discharge Home Medications aspirin 81 mg tablet,delayed release (Adult Low Dose Aspirin) 81 mg PO DAILY heart [facility] 01/29/21 lisinopril 2.5 mg tablet 2.5 mg PO DAILY #90 tabs 01/03/22 cholecalciferol (vitamin D3) 125 mcg (5,000 unit) tablet 125 mcg PO DAILY vitamin 03/10/22 magnesium oxide 400 mg PO DAILY supplement 03/10/22 cholestMD See Rx Instructions .Route .COMPLEX supplement 09/22/22 clopidogrel 75 mg tablet (Plavix) 75 mg PO QDAY anti platelet 10/09/22 rosuvastatin 5 mg tablet (Crestor) 5 mg PO DAILY #30 tabs 10/09/22 Hospital Course Operations None Procedures Cardiac catheterization Summary of Care Provided Minutes Spent on Discharge: 38 Hospital Course: Per HPI: The patient is a 67 y/o M w/ PMHx: CAD s/p PCI and CABG, HTN, HLD, Obesity who presents to the [facility] ED on 10/07/22 with history of onset substernal chest tightness with associated nausea without emesis, diaphoresis and dyspnea which has been worsening in severity and duration as well as more readily coming on with decreased exertion than previously with recent abnormal outpatient stress test with planned upcoming cardiac catheterization this coming Thursday with Dr. Villegas prompting ED evaluation.? He notes at its worst the discomfort is rated 7-8 out of 10 in severity however currently it improved to 1-2 out of 10.? He was recently traveling and was initially evaluated at a hospital in [place] when he had significant onset of the symptoms.? Prior to this he had actually been traveling and hiking without issue.? Work-up in the ED inc luded T 96.7, HR 71, BP 159/83, RR 18, 100% on RA, CBC w/ WBC 5.9, Hgb 14.4, Plts 206 without shift, BMP with BUN/Cr 22/1.03 otherwise no marked appearing, troponin 12, CXR without acute findings, EKG with SR without acute evidence of ischemia. In the ED patient administered 324 mg po x 1. ED physician discussed case with Dr. Villegas with intention for possible catheterization in AM. Hospital Course: 1. Chest pain with recent abnormal stress testing/CAD status post stenting and CABG/HTN/HLD?67-year-old male present to the hospital with accelerating angina. He did have a recent abnormal stress test so he was taken straight for heart cath. He did have a stent placed and was continued on his aspirin and Plavix. We did discuss with him the benefits of being on a statin despite his aching muscle pain and so he is willing to try Crestor at 5 mg daily which she will be discharged on. Blood pressure has been stable so no changes were made to his blood pressure medications at this time I discussed with him and his the plan for discharge today he expressed understanding of the risk benefits of going home and he would like to go home today. I recommend that he follow-up with his PCP in 3 to 5 days and cardiology within the next month. Physical Exam Narrative General: Alert, Oriented x3, Cooperative, No apparent distress HEENT: Atraumatic, PERRLA, EOMI, Normocephalic Oral: Moist Mucosa Neck: Supple, No JVD Lungs: Clear to auscultation, Normal air movement, No rhonchi, No wheeze, No rales Cardiovascular: Regular rate, Regular Rhythm, Normal S1, Normal S2, No murmurs Abdomen: Soft, Non Tender, Non-Distended, No Hepato-splenomegaly Extremities: No edema, Capillary Refill Less than 3 Seconds Skin: No rashes, No breakdown Musculoskeletal: No Tenderness to Palpation of Joints or Extremities Neurological: Cranial nerves II-XII grossly intact, Motor Exam 5/5 strength throughout, Sensory exam intact to light touch and pain Psych/Mental Status: Normal Affect, Appropriate Weight / BMI Weight Weight: 209 lb 7.026 oz Body Mass Index (BMI) 32.1 ABG / Lab / Microbiology Data Result Diagrams: 10/09/22 05:08 10/09/22 05:08 Laboratory: Laboratory Results - last 24 hr 10/09/22 05:08: Sodium 140, Potassium 4.0, Chloride 110 H, Carbon Dioxide 24.0, Anion Gap 6, BUN 18, Creatinine 0.88, Estim Creat Clear Calc 78.24, Est GFR (MDRD) Af Amer 111, Est GFR (MDRD) Non-Af 92, BUN/Creatinine Ratio 20.4 H, Glucose 97, Calcium 8.3 L, Total Bilirubin 0.40, AST 13 L, ALT 21, Alkaline Phosphatase 40 L, Total Protein 6.2 L, Albumin 2.6 L, Globulin 3.6, Albumin/Globulin Ratio 0.7 L 10/09/22 05:08: WBC 6.1, RBC 4.54 L, Hgb 14.1, Hct 42.2, MCV 93.0, MCH 31.1, MCHC 33.4, RDW Std Deviation 42.5, RDW Coeff of Adrian 12.3, Plt Count 188, MPV 9.0 D/C Instructions Discharge Diet: Low fat / Low cholesterol Call your doctor if your incision/area has: Continuous Slow Oozing, Sudden Inc reased Bleeding and Foul Smelling Discharge Call your doctor if you observe: Fever of 101 or Higher, Shortness of breath, Dizziness, Fainting spells, Swelling in the ankles, Chest pain and Increased palpitations (irregular heartbeat) Meaningful Use Info Meaningful Use Diagnoses (Choose all that apply): None applicable Discharge Plan Admission Admit Date/Time: 10/08/22 15:27 Attending Provider: Sidney Franklin Primary Care Provider: Carlos Finley Consulting Providers: Jones Villegas ; Alethea Ludwig Discharge Orders/Prescriptions Prescriptions: New rosuvastatin [Crestor] 5 mg tablet 5 mg PO DAILY Qty: 30 0RF Continued aspirin [Adult Low Dose Aspirin] 81 mg tablet,delayed release (DR/EC) 81 mg PO DAILY cholecalciferol (vitamin D3) 125 mcg (5,000 unit) tablet 125 mcg PO DAILY magnesium oxide 400 mg magnesium tablet 400 mg PO DAILY cholestMD tablet See Rx Instructions .ROUTE .COMPLEX Rx Instructions: Niacin 400mg, Bergavit, [place], Garlic lisinopril 2.5 mg tablet 2.5 mg PO DAILY Qty: 90 3RF No Action clopidogrel [Plavix] 75 mg tablet 75 mg PO QDAY Referrals / Follow Up: Jones Villegas MD [Med Staff - Active Staff] - Within 1 Month Carlos Finley PA [Primary Care Provider] - Within 1 Week Disposition Disposition (needs filled in before D/C Order can be placed): Home, Self Care Charges/Coding Visit Charges Inpatient E&M: 02959 Disch Hosp
== END 2022-10-09 12:02 | disposition home or self-care (01) | DRG 247 ==
LOC: ED 20:30 → PCU 21:02
PROVIDERS: Specialist; Admitting Provider Family Medicine; Emergency Provider Emergency Medicine; PCP Physician Assistant; Visit Provider Family Medicine
DX: I25.110 Atherosclerotic heart disease of native coronary artery with unstable angina pectoris (principal); E66.9 Obesity, unspecified; E78.00 Pure hypercholesterolemia, unspecified; I10 Essential (primary) hypertension; Z79.82 Long term (current) use of aspirin; Z79.02 Long term (current) use of antithrombotics/antiplatelets; Z79.899 Other long term (current) drug therapy; Z95.1 Presence of aortocoronary bypass graft; Z82.49 Family history of ischemic heart disease and other diseases of the circulatory system; Z68.32 Body mass index [BMI] 32.0-32.9, adult
CPT/HCPCS: 36415; 71045; 80048; 80053; 80061; 83735; 84484; 85025; 85027; 92928; 93005; 93459; 99152; 99153; 99285; C1874; J7030; Q9967; A4216; C1725; C1760; C1769; C1887; C1894; C9600

== ENCOUNTER → 2022-10-15 | Outpatient (CLI) | payer MEDICARE, OTHER, SELFPAY ==
--- NOTE | 2022-10-15 14:06 | ECHOLC_ITS ---
Reason For Study: [facility] Procedure This was a limited 2D transthoracic echocardiogram. The study was technically difficult. Contrast injection was performed. Exam performed in department. Left Ventricle Left ventricular systolic function is normal. The estimated ejection fraction is 60 %. Unable to assess diastolic dysfunction. No regional wall motion abnormalities noted. Right Ventricle Normal RV size. Normal systolic function. Atria Normal left atrium. Normal right atrium. Mitral Valve There is no mitral annular calcification. Normal mitral valve. Tricuspid Valve Normal tricuspid valve. Aortic Valve Trisinus/trileaflet aortic valve. Mild focal aortic valve thickening. Mild focal aortic valve calcification. Trivial aortic valve insufficiency. Pulmonic Valve The pulmonic valve is not well visualized. Pericardium/Pleural No pericardial effusion. Medication 22 gauge I.V. with prn adaptor inserted into right arm. Diluted definity 1.5ml given slow IV push to enhance endocardial definition. MMode/2D Measurements & Calculations Ao root diam: 3.6 cm LAV(MOD-bp): 42.7 ml LVAd ap4: 33.2 cm2 LAV(MOD-bp) Indexed: 20.9 ml/m2 LVLd ap4: 8.8 cm LAV(MOD-sp2): 58.0 ml EDV(MOD-sp4): 101.3 ml LAV(MOD-sp4): 30.0 ml EDV(sp4-el): 105.6 ml LVAs ap4: 20.9 cm2 LVLs ap4: 7.2 cm ESV(MOD-sp4): 48.6 ml ESV(sp4-el): 51.5 ml EF(MOD-sp4): 52.0 % EF(sp4-el): 51.2 % SV(MOD-sp4): 52.6 ml SV(sp4-el): 54.1 ml LA A4 area: 14.1 cm2 RA A4 area: 12.9 cm2 ECHO/Echo Limited w/Contrast Interpretation Summary The study was technically difficult. Contrast injection was performed. Left ventricular systolic function is normal. The estimated ejection fraction is 60 %. Mild focal aortic valve thickening. Mild focal aortic valve calcification. Unable to assess diastolic dysfunction. Ordering Physician: Bakari Joseph Referring Physician: Bakari Joseph Performed By: Jazmyn Dyer RCS
== END | disposition home or self-care (01) ==
LOC: CVS 14:05
PROVIDERS: PCP Physician Assistant; Referring Provider Nurse Practitioner Family; Visit Provider Nurse Practitioner Family
DX: I34.0 Nonrheumatic mitral (valve) insufficiency (principal)
CPT/HCPCS: 93308; Q9957; A4216; C8924

== ENCOUNTER 2023-03-20 12:53 | Inpatient (IN) | payer MEDICARE, OTHER, SELFPAY ==
[2023-03-20] VITALS (7 sets, daily range): BP systolic 108–129; BP diastolic 70–77; PULSE 59–76; RESP 14–18; TEMP 35.7–36.9; O2SAT 96–99; BMI 31.6; BMI 31.4
--- NOTE | 2023-03-20 13:25 | ED.VIS.CHEST ---
HPI History of Present Illness Chief Complaint: Chest Pain Narrative Narrative: 68-year-old male here with chest pain. Pain started 4 days ago. It is located in the chest epigastrium. States he saw his nurse practitioner environmental services technician 2 days ago. He notes 2 days ago he was doing yard work when he developed chest pain. Chest pain is located in the epigastrium, left-sided radiating to left arm. He denies any nausea, diaphoresis or syncope. He notes the symptoms are similar to prior events in which he received a CABG and stenting. Stated that if he continued to have symptoms she told him to come to the emergency department. The patient denies recent surgery in the last 4 weeks or immobilization in the last 3 days, denies previous diagnosis of DVT or PE, hemoptysis, unilateral leg swelling or malignancy with treatment the last 6 months. No estrogen use noted. Patient denies sudden onset of pain, no tearing sensation, no migratory symptoms, no new numbness, weakness or loss of sensation. Patient denies family history or personal history of Marfan syndrome or Sam-Danlos [facility] Medical History (Updated 03/20/23 @ 16:[address] Jaxson Alberto, ) Atherosclerotic heart disease of [place] coronary artery without angina pectoris CAD (coronary artery disease) Essential hypertension History of coronary artery stent placement (10/08/22) Non-rheumatic mitral regurgitation Pure hypercholesterolemia Home Medications aspirin 81 mg tablet,delayed release (Adult Low Dose Aspirin) 81 mg PO DA[address] heart [facility] 01/29/21 [History Last Taken 06/12/21] cholecalciferol (vitamin D3) 125 mcg (5,000 unit) tablet 125 mcg PO DAILY vitamin 03/10/22 [History Last Taken Unknown] magnesium oxide 400 mg PO DAILY supplement 03/10/22 [History Last Taken Unknown] rosuvastatin 5 mg tablet (Crestor) 5 mg PO DAILY #90 tabs 11/11/22 [Rx Last Taken Unknown] clopidogrel 75 mg tablet (Plavix) 75 mg PO QDAY anti platelet #90 tabs 01/01/23 [Rx Last Taken Unknown] lisinopril 2.5 mg tablet 2.5 mg PO DAILY #90 tabs 01/01/23 [Rx Last Taken Unknown] Allergy/AdvReac Type Severity Reaction Status Date / Time niacin AdvReac Severe Hyperpigmen Verified 03/20/23 13:08 tation [id number] Reductase AdvReac Severe Aches Verified 03/20/23 13:08 Inhibitor [Usdvzcm-Czr-Svs Reductase Inhibitor] prednisone AdvReac Unknown Fast HR Verified 03/20/23 13:08 Family History Uncle CAD (coronary artery disease) Uncle CAD (coronary artery disease) Mother Cancer Breast CA Diabetes Hyperlipidemia Hypertension Father Emphysema lung Other Heart disease Surgical History H/O coronary artery bypass surgery (02/27/21) History of herniorrhaphy History of left heart catheterization (LHC) (02/21/21) History of umbilical hernia repair Presence of coronary angioplasty implant and graft (~06/12/21) Social History (Updated 03/17/23 @ 15:45 by Zahira Cuello) household members: spouse Smoking Status: Never smoker alcohol intake: never substance use type: does not use caffeine: Yes Type: coffee ROS ROS ED ROS Narrative Constitutional: Denies fever HEENT: Denies sore throat Neck: Denies neck pain Cardiovascular: Endorses chest pain Respiratory: Denies shortness of breath GI: Denies nausea vomiting or abdominal pain : Denies changes in urinary habits Musculoskeletal: Denies muscle or joint pain Neurologic: Denies numbness weakness or loss of sensation Skin denies rash EXAM Physical Exam Narrative Exam Narrative: Nursing triage notes reviewed, Vital signs reviewed Constitutional: please see mdm HENT: MMM Eyes: Pupils equal round and reactive to light, Extraocular muscles intact Neck: No stridor, no JVD, full neck ROM Lungs: Clear to auscultation, No wheezing or rales. No increased work of breathing, no conversational dyspnea, no accessory muscle use, no nasal flaring. No respiratory distress noted Heart: Regular rate and rhythm, No murmurs, No rubs and No gallops, 2+ distal pulses (radial, femoral, posterior tibial) in all extremities Abdomen: Soft, there is no tenderness, rigidity, rebound or guarding, no obvious peritoneal signs, no palpable pulsatile abdominal masses, no auscultated abdominal bruit : No CVAT Extremities: No edema Neuro: No focal neurological deficits, cranial nerves II through XII intact, 5/5 strength in all extremities. Intact sensation to light touch in all extremities, 2+ reflexes bilateral patella dens. Normal gait. No ataxia. Skin: No rash or lesions noted Const Vital Signs: 03/20/23 12:54 03/20/23 13:08 03/20/23 13:09 Temperature 98.5 F Temperature Source Temporal Pulse Rate 72 76 Respiratory Rate 18 15 Respiratory Effort Normal Non-Labored Blood Pressure 129/76 H 118/75 Blood Pressure Mean 93 89 Pulse Ox 96 96 Oxygen Delivery Method Room Air Room Air 03/20/23 15:29 Temperature Temperature Source Pulse Rate 59 L Respiratory Rate 14 Respiratory Effort Blood Pressure 112/73 Blood Pressure Mean 86 Pulse Ox 98 Oxygen Delivery Method Room Air Heart Score History: Highly Suspicious ECG: Nonspecific Repolarization Age: >/= 65 years Risk Factors: >/= 3 Risk Factors or History of CAD Troponin: </= Normal Limit Score: 7 MDM MDM MDM Narrative Medical decision making narrative: Chief Complaint: Chest pain External records reviewed: Echocardiogram shows EF of 60% from 2021 Last cardiology visit on 03/17/2022 Additional history CAD, CABG, PCI, hyperlipidemia, hypertension, and [place] with CPAP therapy. MDM: Patient is hemodynamically stable, afebrile, nontoxic-appearing. No focal cardiopulmonary abnormalities noted on exam I considered the following differential diagnosis: ACS, anemia, arrhythmia, pneumothorax, pneumonia, PE, aortic dissection I obtained a broad lab and imaging work-up to further elucidate etiology patient complaints. I considered PE however thought it was less likely given low risk Wells score. I considered aortic dissection as well thought this was less likely given lack of historical and clinical findings to suggest aortic dissection. EKG without new ischemic changes. Initial troponin negative. Delta troponin negative no signs of significant anemia or electrolyte abnormalities. X-ray showed no evidence of pneumonia, pneumothorax or evidence of pulmonary edema. Despite the patient's negative work-up his heart score is elevated with suggest an elevated risk of MACE (heart score 7). Given the patient's elevated risk of Mace I suggest that he stay in the hospital for observation, serial cardiac biomarkers, telemetry monitoring and cardiology evaluation. Patient agreed. I spoke with Dr. Ibrahim who excepted the patient's case at 1600. Factors affecting care: History of VT status post stents, hyperlipidemia, hypertension Social determinants of health: No history of polysubstance abuse, elderly History obtained from others: Shared decision making: I will have a discussion with the patient and or visitors regarding risk/benefits of further testing or admission. They will be made aware of of the risk/benefits inherent in this decision they will be given the opportunity to voice understanding. Consults: Internal medicine Lab Data Attestation: I reviewed the patient's lab results. Lab results narrative: EKG with normal sinus rhythm, left ax deviation, normal intervals, no STEMI CBC without leukocytosis, severe anemia, no thrombocytopenia. BMP without evidence of significant electrolyte abnormalities, no anion gap, no acute kidney injury. Troponin negative x2 Labs: Laboratory Results - last 24 hr 03/20/23 03/20/23 03/20/23 13:05 13:05 15:18 WBC 5.5 RBC 4.74 Hgb 14.9 Hct 43.9 MCV 92.6 MCH 31.4 MCHC 33.9 RDW Std Deviation 42.0 RDW Coeff of Adrian 12.2 Plt Count 201 MPV 9.3 Immature Gran % (Auto) 0.400 Neut % (Auto) 50.1 Lymph % (Auto) 33.1 [place] % (Auto) 11.3 H Eos % (Auto) 4.2 Baso % (Auto) 0.9 Absolute Neuts (auto) 2.8 Absolute Lymphs (auto) 1.82 Nucleated RBC % 0 Sodium 137 Potassium 4.0 Chloride 109 H Carbon Dioxide 25.0 Anion Gap 3 L BUN 20 H Creatinine 0.89 Estim Creat Clear Calc 76.33 Est GFR (MDRD) Af Amer 111 Est GFR (MDRD) Non-Af 91 BUN/Creatinine Ratio 22.6 H Glucose 112 H Calcium 9.3 Troponin I High Sens 19 21 Radiography Chest X-Ray - ED: Read by ED Physician Diagnostic Testing: Clinical Impression(s) from Imaging Studies Chest X-Ray 03/20/23 13:35 IMPRESSION: No acute adenopathy is seen. Electronically Signed: Jasmeet Babcock MD at 13:59 EDT , I have personally reviewed the patient's chest x-ray. Chest x-ray is unremarkable for pulmonary edema, pneumothorax, pneumonia or focal cardiopulmonary abnormality. Discharge Plan Triage Chief Complaint: Chest Pain ED Provider: Remy,Jaxson Dx/Rx/DC Orders Clinical Impression: Chest pain, History of CAD (coronary artery disease), History of hypertension Prescriptions: No Action aspirin [Adult Low Dose Aspirin] 81 mg tablet,delayed release (DR/EC) 81 mg PO DAILY cholecalciferol (vitamin D3) 125 mcg (5,000 unit) tablet 125 mcg PO DAILY magnesium oxide 400 mg magnesium tablet 400 mg PO DAILY rosuvastatin [Crestor] 5 mg tablet 5 mg PO DAILY Qty: 90 3RF clopidogrel [Plavix] 75 mg tablet 75 mg PO QDAY Qty: 90 3RF lisinopril 2.5 mg tablet 2.5 mg PO DAILY Qty: 90 3RF Primary Care Provider: Carlos Finley Referrals: Carlos Finley PA [Primary Care Provider] -
--- NOTE | 2023-03-20 13:30 | EKG12_ITS ---
Test Reason : Blood Pressure : / mmHG Vent. Rate : 078 BPM Atrial Rate : 078 BPM P-R Int : 216 ms QRS Dur : 100 ms QT Int : 408 ms P-R-T Axes : 043 -27 038 degrees QTc Int : 465 ms Sinus rhythm with 1st degree A-V block Otherwise normal ECG When compared with ECG of 24-MAR-2023 05:38, MANUAL COMPARISON REQUIRED, DATA IS UNCONFIRMED Confirmed by ASIA LONG, NATHALY ([id number]), fashion editor SILAS LEIVA ([id number]) on 03/25/2023 9:32:59 AM Referred By: KODY Confirmed By:NATHALY BETANCOURT MD
[2023-03-20] MEDS: Aspirin 81 MG TAB.CHEW 324 MG PO (13:31)
--- NOTE | 2023-03-20 13:35 | RAD_ITS ---
STUDY: X-RAY CHEST REASON FOR EXAM: Male, 68 years old. Chest pain TECHNIQUE: Single AP portable view of the chest. COMPARISON: Comparison is made with prior study October 07, 2022. FINDINGS: EKG electrodes are seen. The lungs are clear and expanded. There is no demonstrated pleural abnormality. Sternal cerclage wires and vascular clips are present from a prior sternotomy and coronary artery bypass graft procedure (CABG). Normal mediastinum and chanda. Normal visualized pulmonary arteries. There is atherosclerotic calcification of the aortic arch with tortuosity. There are degenerative changes of the visualized thoracic spine. Normal visualized ribs, clavicles, and shoulders. There is no demonstrated abnormality of the visualized soft tissue structures of the upper abdomen. RAD/Chest 1 View (Portable) IMPRESSION: No acute adenopathy is seen. Electronically Signed: Jasmeet Babcock MD at 13:59 EDT ,
[2023-03-20 13:39] LABS: Absolute Lymphocyte Count 1.82 X10^3/uL (0.83-4.51); Absolute Neutrophil Count 2.8 X10^3/uL (2.0-7.7); Basophil# 0.05 X10^3/uL; Basophil% 0.9 % (0-1); Eosinophil# 0.23 X10^3/uL; Eosinophils% 4.2 % (0-5); Hematocrit 43.9 % (40-54); Hemoglobin 14.9 g/dL (13.0-16.5); Lymphocyte # 1.82 X10^3/ul (0.83-4.51); Lymphocyte % 33.1 % (19-41); Mean Corp Hgb Conc 33.9 g/dL (32-36); Mean Corpuscular Hgb 31.4 pg (27.0-32.0); Mean Corpuscular Volume 92.6 fL (80-94); Mean Platelet Vol. 9.3 fl (6.2-12.0); Monocyte# 0.62 X10^3/uL; Monocyte% 11.3 % (0-10); NRBC Flagged by Analyzer 0 % (0-5); Neutrophil # 2.76 X10^3/uL (2.7-7.7); Neutrophil % 50.1 % (47-70); Platelet Count 201 K/mm3 (150-450); RBC Distribution Width CV 12.2 % (11.6-14.6); Red Blood Count 4.74 M/mm3 (4.6-6.2); White Blood Count 5.5 K/mm3 (4.4-11.0)
[2023-03-20 13:57] LABS: Anion Gap 3 (5-15); BUN 20 mg/dL (7-18); BUN/Creat Ratio 22.6 RATIO (10-20); Calcium,Total 9.3 mg/dL (8.5-10.1); Chloride 109 mmol/L (98-107); Creatinine, Serum 0.89 mg/dL (0.70-1.30); EST Glomerular Filtration Rate 91 mL/min (>60); Est Glom Filt Rate - Afr Amer 111 mL/min (>60); Estimated Creatinine Clearance 76.33 ml/min; Glucose 112 mg/dL (74-106); Sodium Level 137 mmol/L (136-145); Troponin-I HS (w/2H Reflex) 19 pg/mL (3.0-78.0)
[2023-03-20 15:35] LABS: Reflex Troponin-HS? (from REC) Y
[2023-03-20 16:04] LABS: Troponin-I HS 21 pg/mL (3.0-78.0)
--- NOTE | 2023-03-20 16:27 | PCM.HP.STD ---
HPI - General General Date of Admission: 03/20/23 Date of Service: 03/20/23 Chief Complaint: chest pain HPI Narrative SERGIO JOSEPH, is a 68 M who presents with chest pain. Over the past week, patient's been having chest pain with exertion resolves with rest. It has been accelerating over the past week. Patient actually saw cardiology on the and plan was for medical management but they advised him if it did get worse to present to the emergency room. Patient was also developing nausea with this which led him to present to the emergency room. While he was in the emergency room, the work-up, including EKG and cardiac enzymes were unremarkable. But given the patient's prior history of chest pain where he has undergone a CABG in 2020 and more recently a stent to the obtuse marginal in September patient being brought into the hospital for further cardiac evaluation. [facility] Medical History Atherosclerotic heart disease of [place] coronary artery without angina pectoris CAD (coronary artery disease) Essential hypertension History of coronary artery stent placement (10/08/22) Non-rheumatic mitral regurgitation Pure hypercholesterolemia Home Medications aspirin 81 mg tablet,delayed release (Adult Low Dose Aspirin) 81 mg PO DAILY heart health 01/29/21 [History Last Taken 06/12/21] cholecalciferol (vitamin D3) 125 mcg (5,000 unit) tablet 125 mcg PO DAILY vitamin 03/10/22 [History Last Taken Unknown] magnesium oxide 400 mg PO DAILY supplement 03/10/22 [History Last Taken Unknown] rosuvastatin 5 mg tablet (Crestor) 5 mg PO DAILY #90 tabs 11/11/22 [Rx Last Taken Unknown] clopidogrel 75 mg tablet (Plavix) 75 mg PO QDAY anti platelet #90 tabs 01/01/23 [Rx Last Taken Unknown] lisinopril 2.5 mg tablet 2.5 mg PO DAILY #90 tabs 01/01/23 [Rx Last Taken Unknown] Allergy/AdvReac Type Severity Reaction Status Date / Time niacin AdvReac Severe Hyperpigmen Verified 03/20/23 13:08 tation Gfoenwc-LNZ-ErE Reductase AdvReac Severe Aches Verified 03/20/23 13:08 Inhibitor [Ckgravd-Hls-Zik Reductase Inhibitor] prednisone AdvReac Unknown Fast HR Verified 03/20/23 13:08 Family History Uncle CAD (coronary artery disease) Uncle CAD (coronary artery disease) Mother Cancer Breast CA Diabetes Hyperlipidemia Hypertension Father Emphysema lung Other Heart disease Surgical History H/O coronary artery bypass surgery (02/27/21) History of herniorrhaphy History of left heart catheterization (LHC) (02/21/21) History of umbilical hernia repair Presence of coronary angioplasty implant and graft (~06/12/21) Social History household members: spouse Smoking Status: Never smoker alcohol intake: never substance use type: does not use caffeine: Yes Type: coffee ROS ROS Narrative All review of systems were negative except as mentioned above in the history of present illness and the other review of systems. Vital Signs Vital Signs Vital Signs: 03/20/23 12:54 03/20/23 13:08 03/20/23 13:09 Temperature 36.9 C Temperature Source Temporal Pulse Rate 72 76 Respiratory Rate 18 15 Respiratory Effort Normal Non-Labored Blood Pressure 129/76 H 118/75 Blood Pressure Mean 93 89 Pulse Ox 96 96 Oxygen Delivery Method Room Air Room Air 03/20/23 15:29 Temperature Temperature Source Pulse Rate 59 L Respiratory Rate 14 Respiratory Effort Blood Pressure 112/73 Blood Pressure Mean 86 Pulse Ox 98 Oxygen Delivery Method Room Air Weight Weight: 91.626 kg Body Mass Index (BMI) 31.6 Physical Exam Narrative - Physical Exam General: Alert, Oriented x3, Cooperative HEENT: Atraumatic, PERRLA, EOMI, Normocephalic Oral: Moist Mucosa, No Gingival or Mucosal Lesions/ Ulcerations Neck: Supple, No JVD, Negative Carotid Bruits Lungs: Clear to auscultation, Normal air movement Cardiovascular: Regular rate, Normal S1, Normal S2, No murmurs Abdomen: Bowel Sounds Present, Soft, Non Tender, Non-Distended, No Hepato-splenomegaly Extremities: No clubbing, No cyanosis, No edema, Capillary Refill Less than 3 Seconds Skin: No rashes, No breakdown Musculoskeletal: No Tenderness to Palpation of Joints or Extremities Neurological: Neuro grossly intact Psych/Mental Status: Normal Affect, Appropriate Results Lab / Micro Data Result Diagrams: 03/20/23 13:05 03/20/23 13:05 Labs: Laboratory Results - last 24 hr 03/20/23 13:05: WBC 5.5, RBC 4.74, Hgb 14.9, Hct 43.9, MCV 92.6, MCH 31.4, MCHC 33.9, RDW Std Deviation 42.0, RDW Coeff of [place] 12.2, Plt Count 201, MPV 9.3, Immature Gran % (Auto) 0.400, Neut % (Auto) 50.1, Lymph % (Auto) 33.1, [place] % (Auto) 11.3 H, Eos % (Auto) 4.2, Baso % (Auto) 0.9, Absolute Neuts (auto) 2.8, Absolute Lymphs (auto) 1.82, Nucleated RBC % 0 03/20/23 13:05: Sodium 137, Potassium 4.0, Chloride 109 H, Carbon Dioxide 25.0, Anion Gap 3 L, BUN 20 H, Creatinine 0.89, Estim Creat Clear Calc 76.33, Est GFR (MDRD) Af Amer 111, Est GFR (MDRD) Non-Af 91, BUN/Creatinine Ratio 22.6 H, Glucose 112 H, Calcium 9.3, Troponin I High Sens 19 03/20/23 15:18: Troponin I High Sens 21 Radiology Impression Chest X-Ray 03/20/23 13:35 IMPRESSION: No acute adenopathy is seen. Electronically Signed: Jasmeet Babcock MD at 13:59 EDT , Assessment & Plan Assessment/Plan (1) Chest pain: QUALIFIERS: Chest pain type: chest pain due to myocardial ischemia Ischemic chest pain type: unstable angina pectoris Qualified Code(s): I20.0 - Unstable angina PLAN: Concerning for unstable angina. Thus far work-up has been unremarkable with a negative EKG cardiac enzymes. Patient states that he has been compliant with his medications at home. Continue with aspirin, clopidogrel. Patient is on a low-dose of rosuvastatin given noted intolerance to statins. In the absence of any myocardial infarction we will avoid anticoagulation at this time. Given the patient's history I do not feel it germane to performing a stress test is patient was sent in by cardiology. I will have cardiology evaluate and determine if indeed the patient should have a stress test or should undergo a cardiac catheterization. Continue with lisinopril. PLAN: Plan VTE prophylaxis: Not indicated given current observation status. Charges/Coding Visit Charges Inpatient E&M: 99418 Init Hosp L2
--- NOTE | 2023-03-20 17:12 | EKG12_ITS ---
Test Reason : CP ADMIT Blood Pressure : / mmHG Vent. Rate : 055 BPM Atrial Rate : 055 BPM P-R Int : 260 ms QRS Dur : 104 ms QT Int : 444 ms P-R-T Axes : 042 -24 050 degrees QTc Int : 424 ms Sinus bradycardia with 1st degree A-V block Otherwise normal ECG When compared with ECG of 20-MAR-2023 13:02, MANUAL COMPARISON REQUIRED, DATA IS UNCONFIRMED Confirmed by ASIA LONG, NATHALY ([id number]), editor dictionary SILAS LEIVA ([id number]) on 03/24/2023 10:30:00 AM Referred By: Confirmed By:NATHALY BETANCOURT MD
--- NOTE | 2023-03-20 20:09 | PCM.CONS.C ---
Assessment & Plan Assessment/Plan (1) Chest pain: (2) History of CAD (coronary artery disease): (3) Atherosclerotic heart disease of [place] coronary artery without angina pectoris: QUALIFIERS: [place] vs. transplanted heart: [place] heart Qualified Code(s): I25.10 - Atherosclerotic heart disease of [place] coronary artery without angina pectoris (4) H/O coronary artery bypass surgery: (5) History of coronary artery stent placement: (6) Accelerating angina: (7) History of hypertension: PLAN: 68-year-old patient admitted from the cardiology clinic today Complaining of symptoms of chest pain Patient had extensive cardiac history in January 2021 patient has a CABG With GOMEZ to LAD, sequential SVG graft to OM1 and PDA Had a distal left main. Subsequently patient underwent cardiac cath because of recurrent angina with stenting of the distal left main and OM1 branch/left circumflex As well had an in-stent restenosis of the RCA. With patency of the graft. Patient had other risk factors with history of hypertension hyperlipidemia. I saw the patient today at bedside along with the nursing staff at bedside at time of evaluation Symptoms of chest pain is mainly exertional chest pain especially when he walks on the treadmill or doing some activities at home Cardiac care plan recommendations; I reviewed and discussed all his current medication as well as monitor and storage bin tender imaging studies and EKG 2. We will check series of cardiac biomarkers 3. We will evaluate with Lexiscan sestamibi on Thursday 4. Echocardiogram tomorrow. HPI Consult Data Date of Consult: 03/20/23 HPI Narrative Reason for Consultation: Status post CABG/PCI /recurrent angina HPI Narrative: SERGIO JOSEPH, is a 68 M who presents [facility] Medical History Atherosclerotic heart disease of [place] coronary artery without angina pectoris CAD (coronary artery disease) Essential hypertension History of coronary artery stent placement (10/08/22) Non-rheumatic mitral regurgitation Pure hypercholesterolemia Home Medications aspirin 81 mg tablet,delayed release (Adult Low Dose Aspirin) 81 mg PO DAILY heart health 01/29/21 [History Last Taken 03/20/23] cholecalciferol (vitamin D3) 125 mcg (5,000 unit) tablet 125 mcg PO DAILY vitamin 03/10/22 [History Last Taken 03/20/23] magnesium oxide 400 mg PO QHS supplement 03/10/22 [History Last Taken 03/19/23] clopidogrel 75 mg tablet (Plavix) 75 mg PO QDAY anti platelet #90 tabs 01/01/23 [Rx Last Taken 03/20/23] lisinopril 2.5 mg tablet 2.5 mg PO QHS bp 03/20/23 [History Last Taken 03/19/23] rosuvastatin 5 mg tablet (Crestor) 5 mg PO QHS 03/20/23 [History Last Taken 03/19/23] Allergy/AdvReac Type Severity Reaction Status Date / Time niacin AdvReac Severe Hyperpigmen Verified 03/20/23 13:08 tation Wussehw-MZZ-JrV Reductase AdvReac Severe Aches Verified 03/20/23 13:08 Inhibitor [Ioyriew-Ffj-Yhf Reductase Inhibitor] prednisone AdvReac Unknown Fast HR Verified 03/20/23 13:08 Family History Uncle CAD (coronary artery disease) Uncle CAD (coronary artery disease) Mother Cancer Breast CA Diabetes Hyperlipidemia Hypertension Father Emphysema lung Other Heart disease Surgical History H/O coronary artery bypass surgery (02/27/21) History of herniorrhaphy History of left heart catheterization (LHC) (02/21/21) History of umbilical hernia repair Presence of coronary angioplasty implant and graft (~06/12/21) Social History household members: spouse Smoking Status: Never smoker alcohol intake: never substance use type: does not use caffeine: Yes Type: coffee ROS ROS Narrative 14 point review of system is unremarkable apart from current presentation with symptoms of chest pain. Physical Exam Cardio Cardio Narrative: Rhythm normal sinus Cardiac exam S1-S2 regular Chest exam is clear to auscultation bilateral. Examination lower extremity no clubbing no cyanosis no lower extremity edema. Risk Stratification Risk Stratification Applicable: Yes Age >/= 65: Yes >/= 3 CAD Risk Factors (HTN, HLD, DM, family hx of CAD, or current smoker): Yes Aspirin Use in the Past 7 Days: Yes Severe Angina (>/= episodes in 24 hours): Yes EKG ST Changes >/= 0.5mm: No Positive Cardiac Marker: No DAVID Risk Stratification Score: 4 DAVID % Risk: 20% Risk Objective Data Vital Signs: Vital Signs Temp Pulse Resp BP Pulse Ox O2 Del Method 96.2 F L 59 L 16 127/77 H 98 Room Air 03/20/23 17:34 03/20/23 17:34 03/20/23 17:34 03/20/23 17:34 03/20/23 17:34 03/20/23 17:34 Oxygen Delivery Method Room Air Weight: 201 lb Body Mass Index (BMI) 31.4 Intake & Output: Intake and Output for Last 24 Hours 03/18/23 03/19/23 03/20/23 23:59 23:59 23:59 Intake Total 200 / 200 Balance 200 / 200 Lab / Micro Data Result Diagrams: 03/20/23 13:05 03/20/23 13:05 Labs: Laboratory Results - last 24 hr 03/20/23 13:05: WBC 5.5, RBC 4.74, Hgb 14.9, Hct 43.9, MCV 92.6, MCH 31.4, MCHC 33.9, RDW Std Deviation 42.0, RDW Coeff of [place] 12.2, Plt Count 201, MPV 9.3, Immature Gran % (Auto) 0.400, Neut % (Auto) 50.1, Lymph % (Auto) 33.1, [place] % (Auto) 11.3 H, Eos % (Auto) 4.2, Baso % (Auto) 0.9, Absolute Neuts (auto) 2.8, Absolute Lymphs (auto) 1.82, Nucleated RBC % 0 03/20/23 13:05: Sodium 137, Potassium 4.0, Chloride 109 H, Carbon Dioxide 25.0, Anion Gap 3 L, BUN 20 H, Creatinine 0.89, Estim Creat Clear Calc 76.33, Est GFR (MDRD) Af Amer 111, Est GFR (MDRD) Non-Af 91, BUN/Creatinine Ratio 22.6 H, Glucose 112 H, Calcium 9.3, Troponin I High Sens 19 03/20/23 15:18: Troponin I High Sens 21 Cardiology Labs/Tests 03/20/23 13:05: WBC 5.5, RBC 4.74, Hgb 14.9, Hct 43.9, MCV 92.6, MCH 31.4, MCHC 33.9, Plt Count 201, MPV 9.3, Immature Gran % (Auto) 0.400, Neut % (Auto) 50.1, Lymph % (Auto) 33.1, [place] % (Auto) 11.3 H, Eos % (Auto) 4.2, Baso % (Auto) 0.9, Absolute Neuts (auto) 2.8, Nucleated RBC % 0 03/20/23 13:05: Sodium 137, Potassium 4.0, Chloride 109 H, Carbon Dioxide 25.0, Anion Gap 3 L, BUN 20 H, Creatinine 0.89, Est GFR (MDRD) Af Amer 111, Est GFR (MDRD) Non-Af 91, BUN/Creatinine Ratio 22.6 H, Glucose 112 H, Calcium 9.3 Rhythm: EKG: ECHO: Stress Test: Cardiac Cath: PCI: CT Surgery: Holter monitor: EPS: PPM: CXR: Chest CT Scan: Radiography Diagnostic Testing: Radiology Impression Chest X-Ray 03/20/23 13:35 IMPRESSION: No acute adenopathy is seen. Electronically Signed: Jasmeet Babcock MD at 13:59 EDT ,
[2023-03-20] MEDS: Lisinopril 2.5 MG Tablet PO (21:02)
[2023-03-20] MEDS: Rosuvastatin Calcium 5 MG Tablet PO (21:02)
[2023-03-20 21:09] LABS: Troponin-I HS 18 pg/mL (3.0-78.0)
--- NOTE | 2023-03-21 00:01 | ECHOCS_ITS ---
Reason For Study: Chest Pain Procedure This was a 2D Doppler, Color Flow transthoracic echocardiogram. The study was technically difficult. Contrast injection was performed. Exam performed portable in patient room. Left Ventricle Normal left ventricle. The estimated ejection fraction is 50-55 %. Right Ventricle Normal right ventricle. Normal systolic function. Atria The left atrium is mildly enlarged. Normal right atrium. Aortic Valve Moderate diffuse aortic valve calcification. Mild (1+) aortic valve insufficiency. Pulmonic Valve The pulmonic valve is not well visualized. Great Vessels Normal aortic root. Pericardium/Pleural No pericardial effusion. Medication Diluted definity 2ml given slow IV push to enhance endocardial definition. MMode/2D Measurements & Calculations LVIDd: 4.0 cm IVSd: 1.1 cm Ao root diam: 3.7 cm LVIDs: 2.6 cm LVPWd: 1.2 cm LA dimension: 4.2 cm RVDd: 4.0 cm FS: 36.7 % LAV(MOD-bp): 58.5 ml LA A4 area: 18.2 cm2 RA A4 area: 14.1 cm2 LAV(MOD-bp) Indexed: 29.8 ml/m2 LAV(MOD-sp2): 67.8 ml LAV(MOD-sp4): 50.7 ml Time Measurements MV dec time: 0.24 sec Doppler Measurements & Calculations MV E max aman: 64.0 cm/sec Lat Peak E' Aman: 9.5 cm/sec Med Peak E' Aman: 8.8 cm/sec MV A max aman: 72.2 cm/sec E/E' lat: 6.8 E/E' med: 7.3 MV E/A: 0.89 MV V2 max: 74.0 cm/sec MV P1/2t max aman: 77.2 cm/sec Ao V2 max: 135.6 cm/sec MV max P.2 mmHg MV P1/2t: 89.7 msec Ao max P.4 mmHg MV V2 mean: 40.4 cm/sec Ao V2 mean: 94.6 cm/sec MV mean P.77 mmHg MV dec slope: 252.0 cm/sec2 Ao mean P.1 mmHg MV V2 VTI: 26.2 cm MVA(P1/2t): 2.5 cm2 Ao V2 VTI: 34.2 cm AV (velocity ratio): 0.72 AI max aman: 317.6 cm/sec LV V1 max: 92.9 cm/sec PA V2 max: 99.4 cm/sec AI max P.4 mmHg LV V1 max P.5 mmHg LV V1 mean P.9 mmHg AI dec slope: 91.0 cm/sec2 LV V1 mean: 64.4 cm/sec AI P1/2t: 1022 msec LV V1 VTI: 24.5 cm ECHO/Echo Complete W/ Contrast Interpretation Summary The estimated ejection fraction is 50-55 %. Mild otic incompetency/AI Trivial MR No significant change from prior echocardiogram. Ordering Physician: Cameron Mccoy Performed By: Jr Jones RCS
--- NOTE | 2023-03-21 01:15 | CPS ---
Patient refused PAP therapy at 23:30. On O2 for the night.
[2023-03-21 03:05] VITALS: BP 111/71; PULSE 58; RESP 17; TEMP 37.1; O2SAT 98
--- NOTE | 2023-03-21 07:31 | PN.HOSP_ITS ---
Reason for Visit Reason for Visit: Diagnoses Unstable angina (03/20/23) Atherosclerotic heart disease of [place] coronary artery without angina pectoris (03/20/23) Chest pain, unspecified (03/20/23) Personal history of other diseases of the circulatory system (03/20/23) Presence of aortocoronary bypass graft (03/20/23) Presence of coronary angioplasty implant and graft (03/20/23) Subjective Subjective No further chest pain overnight. Objective Data Objective Data Vital Signs: Vital Signs Temp Pulse Resp BP Pulse Ox O2 Del Method 37.1 C 58 L 17 111/71 98 Room Air 03/21/23 03:05 03/21/23 03:05 03/21/23 03:05 03/21/23 03:05 03/21/23 03:05 03/21/23 03:05 Oxygen Delivery Method Room Air Weight: 91.172 kg Body Mass Index (BMI) 31.4 Intake & Output: Intake and Output for Last 24 Hours 03/19/23 03/20/23 03/21/23 23:59 23:59 23:59 Intake Total 200 / 200 Balance 200 / 200 Lab / Micro Data Result Diagrams: 03/20/23 13:05 03/20/23 13:05 Labs: Laboratory Results - last 24 hr 03/20/23 13:05: WBC 5.5, RBC 4.74, Hgb 14.9, Hct 43.9, MCV 92.6, MCH 31.4, MCHC 33.9, RDW Std Deviation 42.0, RDW Coeff of [place] 12.2, Plt Count 201, MPV 9.3, Immature Gran % (Auto) 0.400, Neut % (Auto) 50.1, Lymph % (Auto) 33.1, [place] % (Auto) 11.3 H, Eos % (Auto) 4.2, Baso % (Auto) 0.9, Absolute Neuts (auto) 2.8, Absolute Lymphs (auto) 1.82, Nucleated RBC % 0 03/20/23 13:05: Sodium 137, Potassium 4.0, Chloride 109 H, Carbon Dioxide 25.0, Anion Gap 3 L, BUN 20 H, Creatinine 0.89, Estim Creat Clear Calc 76.33, Est GFR (MDRD) Af Amer 111, Est GFR (MDRD) Non-Af 91, BUN/Creatinine Ratio 22.6 H, Glucose 112 H, Calcium 9.3, Troponin I High Sens 19 03/20/23 15:18: Troponin I High Sens 21 03/20/23 20:10: Troponin I High Sens 18 Radiography Diagnostic Testing: Radiology Impression Chest X-Ray 03/20/23 13:35 IMPRESSION: No acute adenopathy is seen. Electronically Signed: Jasmeet Babcock MD at 13:59 EDT , Physical Exam Const alert and no apparent distress Resp normal respiratory effort, no retractions, no use of accessory muscles and clear to auscultation bilaterally Cardio regular rate, regular rhythm, S1 normal heart sound and S2 normal heart sound GI normal to inspection, nondistended, normoactive bowel sounds, soft to palpation, non-tender and non-distended Extremity normal to inspection Assessment & Plan Assessment/Plan (1) Chest pain: PLAN: Concerning for unstable angina. Thus far work-up has been unremarkable with a negative EKG cardiac enzymes. Patient states that he has been compliant with his medications at home. Continue with aspirin, clopidogrel. Patient is on a low-dose of rosuvastatin given noted intolerance to statins. In the absence of any myocardial infarction we will avoid anticoagulation at this time. Continue with lisinopril. Seen by cardiology, plan for stress test on 03/23 Troponins negative Pt states he'd rather go home and come back Thursday for stress, also, he would rather have the [facility], as ultimately, it may come to that. I expressed understa nding of his frustration, but I said we could not arrange for him to have a stress on Thursday over the weekend, and it could possibly be later if it is to be done as outpt. I encouraged him to stay, but if he wished to leave, I said that would be fine since he is currently stable with no sign of a myocardial infarction. He will think about it. PLAN: Plan VTE prophylaxis: Not indicated given current observation status. Charges/Coding Visit Charges Inpatient E&M: 36277 Subs Hosp L2
[2023-03-21 08:14] VITALS: O2SAT 95
[2023-03-21 09:05] VITALS: BP 117/67; PULSE 69; RESP 16; TEMP 36.6; O2SAT 97
[2023-03-21] MEDS: Magnesium Chloride 64 MG Delay Rel.Tablet 128 MG PO (09:58)
[2023-03-21] MEDS: Clopidogrel Bisulfate 75 MG Tablet PO (09:58)
[2023-03-21] MEDS: Aspirin E.C. 81 MG Tablet PO (09:58)
[2023-03-21] MEDS: 0.9% Saline Lock 10 ML Syringe IV (09:58)
[2023-03-21] MEDS: Cholecalciferol (Vit D3) 125 MCG CAPSULE (5,000 UNITS) PO (09:58)
[2023-03-21 13:39] VITALS: BP 117/78; PULSE 63; RESP 16; TEMP 36.3; O2SAT 96
--- NOTE | 2023-03-21 13:55 | PCM.PN.CARD ---
Subjective Subjective Seen and evaluated today at bedside along with the family and discussed with the nursing staff Symptoms of chest pain improving. Objective Data Vital Signs: Vital Signs Temp Pulse Resp BP Pulse Ox O2 Del Method 97.3 F L 63 16 117/78 96 Room Air 03/21/23 13:39 03/21/23 13:39 03/21/23 13:39 03/21/23 13:39 03/21/23 13:39 03/21/23 13:39 Oxygen Delivery Method Room Air Weight: 201 lb Body Mass Index (BMI) 31.4 Intake & Output: Intake and Output for Last 24 Hours 03/19/23 03/20/23 03/21/23 23:59 23:59 23:59 Intake Total 200 / 200 490 / 490 Balance 200 / 200 490 / 490 Lab / Micro Data Result Diagrams: 03/20/23 13:05 03/20/23 13:05 Labs: Laboratory Results - last 24 hr 03/20/23 13:05: Sodium 137, Potassium 4.0, Chloride 109 H, Carbon Dioxide 25.0, Anion Gap 3 L, BUN 20 H, Creatinine 0.89, Estim Creat Clear Calc 76.33, Est GFR (MDRD) Af Amer 111, Est GFR (MDRD) Non-Af 91, BUN/Creatinine Ratio 22.6 H, Glucose 112 H, Calcium 9.3, Troponin I High Sens 19 03/20/23 15:18: Troponin I High Sens 21 03/20/23 20:10: Troponin I High Sens 18 Cardiology Labs/Tests 03/20/23 13:05: Sodium 137, Potassium 4.0, Chloride 109 H, Carbon Dioxide 25.0, Anion Gap 3 L, BUN 20 H, Creatinine 0.89, Est GFR (MDRD) Af Amer 111, Est GFR (MDRD) Non-Af 91, BUN/Creatinine Ratio 22.6 H, Glucose 112 H, Calcium 9.3 Rhythm: EKG: ECHO: Stress Test: Cardiac Cath: PCI: CT Surgery: Holter monitor: EPS: PPM: CXR: Chest CT Scan: Radiography Diagnostic Testing: Radiology Impression Chest X-Ray 03/20/23 13:35 IMPRESSION: No acute adenopathy is seen. Electronically Signed: Jasmeet Babcock MD at 13:59 EDT , Physical Exam Cardio Cardio Narrative: Review of cardiac telemetry normal sinus Cardiovascular Gio S1-S2 regular Chest exam clear to auscultation bilateral. Assessment & Plan Assessment/Plan (1) Chest pain: (2) History of hypertension: (3) COVID-19: (4) History of CAD (coronary artery disease): (5) H/O coronary artery bypass surgery: PLAN: Plan Patient with extensive cardiac history Had a history of CABG with GOMEZ to LAD, sequential SVG graft to OM1 and PDA patient had a distal left main disease Also had a history of PCI with the stent of distal left main into the OM1 branch And has also history of in-stent stenosis of the RCA. Patency of the graft was noted on the last cardiac catheterization Patient admitted from the office with symptoms of chest pain Symptoms of chest pain is improving with medical treatment Cardiac care plan recommendations; I discussed in detail the cardiac care plan With possible Lexiscan sestamibi versus cardiac catheterization Patient declined evaluation by stress test and would like to be assessed by cardiac catheterization He will be set up on Thursday for cardiac cath by Dr. Read We will continue current medical treatment.
--- NOTE | 2023-03-21 16:15 | CASEMGMT ---
RN KYA NOTE: Intro role of CM to patient who is visiting in room. PITTS form explained re: Observation status for treatment of chest pain.? Explained hospitalization will be paid per?his insurance policy for Outpatient billing?and condition will continue to be evaluated for Inpt necessity. Also let pt know that [facility] sends paper in the billing packet with their phone number if questions arise. Discussed Pharmacy section of PITTS form and self administered medication guideline.? Pt and verbalize understanding and do not have further questions. ?Form signed, copy made and placed in chart, and original given to pt. Pt and deny having any discharge planning needs or concerns. Pt lives w/. Independent. Debbi ACOSTA RN CM
[2023-03-21 20:47] VITALS: BP 113/65; PULSE 70; RESP 18; TEMP 36.6; O2SAT 98
[2023-03-21] MEDS: Lisinopril 2.5 MG Tablet PO (20:49)
[2023-03-21] MEDS: Bisacodyl 5 MG Tablet 10 MG PO (20:49)
[2023-03-21] MEDS: Rosuvastatin Calcium 5 MG Tablet PO (20:49)
[2023-03-22 03:00] VITALS: BP 107/74; PULSE 57; RESP 14; TEMP 36.9; O2SAT 94
[2023-03-22] MEDS: 0.9% Saline Lock 10 ML Syringe IV (04:00)
[2023-03-22] MEDS: Ondansetron 4 MG/2 ML Vial IV (04:00)
[2023-03-22 08:05] VITALS: O2SAT 94
--- NOTE | 2023-03-22 09:12 | PCM.PN.HOSP ---
Reason for Visit Reason for Visit: Diagnoses Unstable angina (03/20/23) Atherosclerotic heart disease of [place] coronary artery without angina pectoris (03/20/23) Chest pain, unspecified (03/20/23) COVID-19 (03/20/23) Personal history of other diseases of the circulatory system (03/20/23) Presence of aortocoronary bypass graft (03/20/23) Presence of coronary angioplasty implant and graft (03/20/23) Subjective Subjective No events overnight. Objective Data Objective Data Vital Signs: Vital Signs Temp Pulse Resp BP Pulse Ox O2 Del Method 36.9 C 57 L 14 107/74 94 Room Air 03/22/23 03:00 03/22/23 03:00 03/22/23 03:00 03/22/23 03:00 03/22/23 08:05 03/22/23 08:05 Oxygen Delivery Method Room Air Weight: 91.172 kg Body Mass Index (BMI) 31.4 Intake & Output: Intake and Output for Last 24 Hours 03/20/23 03/21/23 03/22/23 23:59 23:59 23:59 Intake Total 200 / 200 1010 / 1010 Balance 200 / 200 1010 / 1010 Lab / Micro Data Result Diagrams: 03/20/23 13:05 03/20/23 13:05 Radiography Diagnostic Testing: Radiology Impression Echocardiogram 03/21/23 00:01 Interpretation Summary The estimated ejection fraction is 50-55 %. Mild otic incompetency/AI Trivial MR No significant change from prior echocardiogram. Ordering Physician: Cameron Mccoy Performed By: Jr Jones RCS Physical Exam Const alert and no apparent distress Resp normal respiratory effort, no retractions, no use of accessory muscles and clear to auscultation bilaterally Cardio regular rate, regular rhythm, S1 normal heart sound and S2 normal heart sound GI normal to inspection, nondistended, normoactive bowel sounds, soft to palpation, non-tender and non-distended Extremity normal to inspection Assessment & Plan Assessment/Plan (1) Chest pain: PLAN: Concerning for unstable angina. Thus far work-up has been unremarkable with a negative EKG cardiac enzymes. Patient states that he has been compliant with his medications at home. Continue with aspirin, clopidogrel. Patient is on a low-dose of rosuvastatin given noted intolerance to statins. In the absence of any myocardial infarction we will avoid anticoagulation at this time. Continue with lisinopril. Seen by cardiology, plan for stress test on 03/23 Troponins negative Pt states he'd rather go home and come back Thursday for stress, also, he would rather have the [facility], as ultimately, it may come to that. I expressed understanding of his frustration, but I said we could not arrange for him to have a stress on Thursday over the weekend, and it could possibly be later if it is to be done as outpt. I encouraged him to stay, but if he wished to leave, I said that would be fine since he is currently stable with no sign of a myocardial infarction. He will think about it. Later, pt declined stress and rather be assessed with cardiac catheterization. To be performed on 03/23 PLAN: Plan VTE prophylaxis: Not indicated given current observation status. Charges/Coding Visit Charges Inpatient E&M: 76617 Subs Hosp L2
[2023-03-22 09:43] VITALS: BP 120/75; PULSE 64; RESP 16; TEMP 36.2; O2SAT 98
[2023-03-22] MEDS: Cholecalciferol (Vit D3) 125 MCG CAPSULE (5,000 UNITS) PO (09:46)
[2023-03-22] MEDS: Clopidogrel Bisulfate 75 MG Tablet PO (09:46)
[2023-03-22] MEDS: Magnesium Chloride 64 MG Delay Rel.Tablet 128 MG PO (09:46)
[2023-03-22] MEDS: Aspirin E.C. 81 MG Tablet PO (09:46)
--- NOTE | 2023-03-22 12:07 | PCM.PN.CARD ---
Subjective Subjective Patient seen and vital to today No symptoms of chest pain reported Objective Data Vital Signs: Vital Signs Temp Pulse Resp BP Pulse Ox O2 Del Method 97.1 F L 64 16 120/75 98 Room Air 03/22/23 09:43 03/22/23 09:43 03/22/23 09:43 03/22/23 09:43 03/22/23 09:43 03/22/23 09:43 Oxygen Delivery Method Room Air Weight: 201 lb Body Mass Index (BMI) 31.4 Intake & Output: Intake and Output for Last 24 Hours 03/20/23 03/21/23 03/22/23 23:59 23:59 23:59 Intake Total 200 / 200 1010 / 1010 Balance 200 / 200 1010 / 1010 Lab / Micro Data Result Diagrams: 03/20/23 13:05 03/20/23 13:05 Cardiology Labs/Tests Rhythm: EKG: ECHO: Stress Test: Cardiac Cath: PCI: CT Surgery: Holter monitor: EPS: PPM: CXR: Chest CT Scan: Radiography Diagnostic Testing: Radiology Impression Echocardiogram 03/21/23 00:01 Interpretation Summary The estimated ejection fraction is 50-55 %. Mild otic incompetency/AI Trivial MR No significant change from prior echocardiogram. Ordering Physician: Cameron Mccoy Performed By: Jr Jones RCS Physical Exam Cardio Cardio Narrative: Cardiac telemetry reviewed normal sinus Cardiac exam S1-S2 regular Chest exam clear to auscultation bilaterally Assessment & Plan Assessment/Plan (1) History of CAD (coronary artery disease): (2) Exertional chest pain: (3) Atherosclerotic heart disease of [place] coronary artery without angina pectoris: QUALIFIERS: [place] vs. transplanted heart: [place] heart Qualified Code(s): I25.10 - Atherosclerotic heart disease of [place] coronary artery without angina pectoris (4) History of coronary artery stent placement: (5) Essential hypertension: (6) Pure hypercholesterolemia: PLAN: Plan I discussed in detail cardiac care plan Patient extensive cardiac history with prior PCI and stent as well as CABG Cardiac care plan recommendations; 1. Continue current medical treatment. Patient declined evaluation by nuclear stress test and would like to be evaluated further by cardiac cath. He did mention that the prior nuclear stress test was normal and once he had cardiac catheterization he require stenting of the left main and OM branch. 2. I scheduled the patient for cardiac catheterization/left radial artery approach Tomorrow by Dr. Read.
[2023-03-22 13:57] VITALS: BP 135/76; PULSE 70; RESP 20; TEMP 36.1; O2SAT 98
[2023-03-22 16:34] VITALS: BP 129/88; PULSE 73; RESP 18; TEMP 36.9; O2SAT 96
--- NOTE | 2023-03-22 19:45 | EKG12_ITS ---
Test Reason : AM EKG Blood Pressure : / mmHG Vent. Rate : 062 BPM Atrial Rate : 062 BPM P-R Int : 214 ms QRS Dur : 098 ms QT Int : 440 ms P-R-T Axes : 025 -32 -08 degrees QTc Int : 446 ms Sinus rhythm with 1st degree A-V block Left axis deviation Inferior infarct , age undetermined Abnormal ECG When compared with ECG of 22-MAR-2023 19:55, MANUAL COMPARISON REQUIRED, DATA IS UNCONFIRMED Confirmed by ASIA LONG, NATHALY ([id number]), editor producer SILAS LEIVA ([id number]) on 03/24/2023 10:26:45 AM Referred By: DAVID Confirmed By:NATHALY BETANCOURT MD
[2023-03-22 19:47] VITALS: BP 122/84; PULSE 78; RESP 18; TEMP 36.7; O2SAT 96
[2023-03-22] MEDS: Lisinopril 2.5 MG Tablet PO (20:38)
[2023-03-22] MEDS: Rosuvastatin Calcium 5 MG Tablet PO (22:16)
[2023-03-23] VITALS (13 sets, daily range): BP systolic 109–144; BP diastolic 69–88; PULSE 55–77; RESP 12–18; TEMP 36.1–36.8; O2SAT 93–98
--- NOTE | 2023-03-23 05:55 | EKG12_ITS ---
Test Reason : POST PCI Blood Pressure : / mmHG Vent. Rate : 058 BPM Atrial Rate : 058 BPM P-R Int : 244 ms QRS Dur : 102 ms QT Int : 450 ms P-R-T Axes : 023 -28 005 degrees QTc Int : 441 ms Sinus bradycardia with 1st degree A-V block Otherwise normal ECG When compared with ECG of 23-MAR-2023 05:13, MANUAL COMPARISON REQUIRED, DATA IS UNCONFIRMED Confirmed by ASIA LONG, NATHALY ([id number]), videotape editor SILAS LEIVA ([id number]) on 03/24/2023 10:26:34 AM Referred By: Confirmed By:NATHALY BETANCOURT MD
[2023-03-23] MEDS: Aspirin E.C. 81 MG Tablet PO (06:34)
--- NOTE | 2023-03-23 07:19 | PCM.PN.HOSP ---
Reason for Visit Reason for Visit: Diagnoses Pure hypercholesterolemia, unspecified (03/20/23) Essential (primary) hypertension (03/20/23) Unstable angina (03/20/23) Atherosclerotic heart disease of [place] coronary artery without angina pectoris (03/20/23) Chest pain, unspecified (03/20/23) COVID-19 (03/20/23) Personal history of other diseases of the circulatory system (03/20/23) Presence of aortocoronary bypass graft (03/20/23) Presence of coronary angioplasty implant and graft (03/20/23) Subjective Subjective Went for cardiac cath this a.m. obtuse marginal branch with high-grade stenosis and subsequent PCI. Patient evaluated post cath and at time of eval patient had no chest pain or shortness of breath. Was feeling well overall Objective Data Objective Data Vital Signs: Vital Signs Temp Pulse Resp BP Pulse Ox O2 Del Method 98.2 F 77 18 144/87 H 98 Room Air 03/23/23 06:32 03/23/23 06:32 03/23/23 06:32 03/23/23 06:32 03/23/23 06:32 03/23/23 06:32 Oxygen Delivery Method Room Air Weight: 91.172 kg Body Mass Index (BMI) 31.4 Intake & Output: Intake and Output for Last 24 Hours 03/21/23 03/22/23 03/23/23 23:59 23:59 23:59 Intake Total 1010 / 1010 960 / 960 Balance 1010 / 1010 960 / 960 Lab / Micro Data Result Diagrams: 03/23/23 07:53 03/23/23 07:53 Physical Exam Narrative General: Alert, oriented, no apparent distress HEENT: Atraumatic, normocephalic Eyes: Anicteric, normal conjunctiva, extraocular movements grossly intact Neck: Supple Respiratory: Clear to auscultation bilaterally, normal respiratory effort Cardiovascular: Regular rate and rhythm GI: Soft, nontender, nondistended Extremities: No edema Musculoskeletal: Moving all extremities Neuro: No overt focal neurological deficits Skin: No rashes appreciated Psych: Cooperative Assessment & Plan Assessment/Plan (1) Chest pain: (2) History of coronary artery stent placement: (3) History of hypertension: (4) H/O coronary artery bypass surgery: PLAN: Plan #Chest pain/CAD s/p CABG -Cardiac cath 03/23: First obtuse marginal branch with in-stent stenosis of 90% and he underwent PCI -Monitor on telemetry -Plavix, aspirin, Crestor 5 mg, lisinopril 2.5 mg -Echo on admission with an EF of 50 to 55%, trivial MR, mild AI #DVT prophylaxis: Lovenox subcu Charges/Coding Visit Charges Inpatient E&M: 95411 Subs Hosp L2
[2023-03-23] MEDS: Clopidogrel Bisulfate 75 MG Tablet PO (07:30)
[2023-03-23] MEDS: 0.9% Normal Saline 1,000 ML 15 ML IV (07:30)
[2023-03-23 08:09] LABS: Absolute Lymphocyte Count 1.59 X10^3/uL (0.83-4.51); Absolute Neutrophil Count 3.5 X10^3/uL (2.0-7.7); Basophil# 0.03 X10^3/uL; Basophil% 0.5 % (0-1); Eosinophil# 0.15 X10^3/uL; Eosinophils% 2.5 % (0-5); Hematocrit 46.8 % (40-54); Hemoglobin 15.4 g/dL (13.0-16.5); Lymphocyte # 1.59 X10^3/ul (0.83-4.51); Lymphocyte % 26.5 % (19-41); Mean Corp Hgb Conc 32.9 g/dL (32-36); Mean Corpuscular Hgb 30.7 pg (27.0-32.0); Mean Corpuscular Volume 93.2 fL (80-94); Mean Platelet Vol. 9.3 fl (6.2-12.0); Monocyte# 0.77 X10^3/uL; Monocyte% 12.8 % (0-10); NRBC Flagged by Analyzer 0 % (0-5); Neutrophil # 3.46 X10^3/uL (2.7-7.7); Neutrophil % 57.5 % (47-70); Platelet Count 201 K/mm3 (150-450); RBC Distribution Width CV 12.4 % (11.6-14.6); RBC Distribution Width SD 42.3 fl (35.1-43.9); Red Blood Count 5.02 M/mm3 (4.6-6.2)
--- NOTE | 2023-03-23 08:23 | NURSING ---
This RN called and gave report to IFEOAM Muir in biological lab technician.
[2023-03-23 08:27] LABS: Anion Gap 3 (5-15); BUN 18 mg/dL (7-18); BUN/Creat Ratio 21.8 RATIO (10-20); Calcium,Total 8.9 mg/dL (8.5-10.1); Chloride 110 mmol/L (98-107); Creatinine, Serum 0.83 mg/dL (0.70-1.30); EST Glomerular Filtration Rate 99 mL/min (>60); Est Glom Filt Rate - Afr Amer 120 mL/min (>60); Estimated Creatinine Clearance 81.85 ml/min; Glucose 98 mg/dL (74-106); Potassium 3.9 mmol/L (3.5-5.1); Sodium Level 135 mmol/L (136-145)
--- NOTE | 2023-03-23 09:49 | PN.CARD_ITS ---
Subjective Subjective Patient seen and evaluated. Appears to be chest pain free today. Objective Data Vital Signs: Vital Signs Temp Pulse Resp BP Pulse Ox O2 Del Method 98.2 F 77 18 144/87 H 98 Room Air 03/23/23 06:32 03/23/23 06:32 03/23/23 06:32 03/23/23 06:32 03/23/23 06:32 03/23/23 07:45 Oxygen Delivery Method Room Air Weight: 201 lb Body Mass Index (BMI) 31.4 Intake & Output: Intake and Output for Last 24 Hours 03/21/23 03/22/23 03/23/23 23:59 23:59 23:59 Intake Total 1010 / 1010 960 / 960 Balance 1010 / 1010 960 / 960 Lab / Micro Data Result Diagrams: 03/23/23 07:53 03/23/23 07:53 Labs: Laboratory Results - last 24 hr 03/23/23 07:53: WBC 6.0, RBC 5.02, Hgb 15.4, Hct 46.8, MCV 93.2, MCH 30.7, MCHC 32.9, RDW Std Deviation 42.3, RDW Coeff of [place] 12.4, Plt Count 201, MPV 9.3, Immature Gran % (Auto) 0.200, Neut % (Auto) 57.5, Lymph % (Auto) 26.5, [place] % (Auto) 12.8 H, Eos % (Auto) 2.5, Baso % (Auto) 0.5, Absolute Neuts (auto) 3.5, Absolute Lymphs (auto) 1.59, Nucleated RBC % 0 03/23/23 07:53: Sodium 135 L, Potassium 3.9, Chloride 110 H, Carbon Dioxide 22.0, Anion Gap 3 L, BUN 18, Creatinine 0.83, Estim Creat Clear Calc 81.85, Est GFR (MDRD) Af Amer 120, Est GFR (MDRD) Non-Af 99, BUN/Creatinine Ratio 21.8 H, Glucose 98, Calcium 8.9 Cardiology Labs/Tests 03/23/23 07:53: WBC 6.0, RBC 5.02, Hgb 15.4, Hct 46.8, MCV 93.2, MCH 30.7, MCHC 32.9, Plt Count 201, MPV 9.3, Immature Gran % (Auto) 0.200, Neut % (Auto) 57.5, Lymph % (Auto) 26.5, [place] % (Auto) 12.8 H, Eos % (Auto) 2.5, Baso % (Auto) 0.5, Absolute Neuts (auto) 3.5, Nucleated RBC % 0 03/23/23 07:53: Sodium 135 L, Potassium 3.9, Chloride 110 H, Carbon Dioxide 22.0, Anion Gap 3 L, BUN 18, Creatinine 0.83, Est GFR (MDRD) Af Amer 120, Est GFR (MDRD) Non-Af 99, BUN/Creatinine Ratio 21.8 H, Glucose 98, Calcium 8.9 Rhythm: EKG: ECHO: Stress Test: Cardiac Cath: PCI: CT Surgery: Holter monitor: EPS: PPM: CXR: Chest CT Scan: Physical Exam Const alert, oriented x3 and no apparent distress General Appearance: cooperative HEENT hearing grossly normal bilaterally Head and Scalp: atraumatic Eyes EOMs intact bilaterally Neck General: normal visual inspection Chest inspection of chest normal and palpation of chest normal Resp normal respiratory effort Auscultation: clear to auscultation bilaterally Cardio regular rate, regular rhythm, S1 normal heart sound and S2 normal heart sound Jugular Venous Distention: JVD GI normal to inspection, nondistended, normoactive bowel sounds Extremity normal capillary refill and no pedal edema Peripheral Pulses: Yes pulses 2+ throughout and femoral pulses present Skin no rashes or lesions noted Neuro oriented x3 and CN's II-XII intact bilaterally Psych Appearance: grossly normal and appropriate Assessment & Plan Assessment/Plan (1) Chest pain: PLAN: Patient presented with chest discomfort and underwent a cardiac catheterization today which demonstrated the following: Left main coronary artery stented distally and patent. Left anterior descending artery totally occluded mid segment. Left circumflex artery stented approximately with patent stent and bifurcating to a first obtuse marginal branch with in-stent stenosis of 90%. Dominant right coronary artery severely diseased previously stented with 95% in- stent stenosis. Sequential saphenous vein graft to the obtuse marginal branch and distal right coronary artery which is patent. Left internal mammary artery to the left anterior descending artery which is patent with a side branch which has not been clipped off. Based on the above angiographic findings we will consider PCI to the distal circumflex artery. (2) History of hypertension: PLAN: Blood pressure appears to be well controlled on the current medical therapy and would not make any changes (3) H/O coronary artery bypass surgery: PLAN: Patient is status post coronary artery bypass surgery as noted above with a GOMEZ to the LAD and a sequential saphenous vein graft to obtuse marginal branch as well as the posterior descending artery (4) History of coronary artery stent placement: PLAN: Status post coronary artery stenting as noted above.
--- NOTE | 2023-03-23 10:03 | CL.D_ITS ---
Patient Name: SERGIO JOSEPH Study Date: 03/23/2023 Performing: Ritesh Read MD Ht: 67 inches 170.18 cm : 1955 Wt: 201 lbs 91.17 kg Age: 68 Gender: male BSA: 2.03 PROCEDURE(S) PERFORMED [id number])LHC/COR/CABG CLINICAL PROFILE AND INDICATIONS Indications: Worsening Angina Heart Failure: None Stress/Imaging Stress/Image Study Performed: No CAD Presentations: Unstable angina. CONCLUSIONS Previously extended stenting to the distal left main, proximal circumflex, right coronary artery with patency noted of the distal left main and the proximal circumflex artery. Severe disease noted of the [place] right coronary artery Patent GOMEZ to the LAD and saphenous vein graft to the obtuse marginal branch and PDA Obtuse marginal branch with high-grade stenosis noted RECOMMENDATIONS We will consider PCI to the obtuse marginal branch. DESCRIPTION OF PROCEDURE The patient arrived to the procedure lab. The risks and benefits of the procedure as well as a full description of our services here and current unavailability of surgical backup were fully explained to the patient and/or their significant other prior to the catheterization. The Timeout was completed, verifying the correct patient and procedure. The patient's procedural site was prepped and draped in the usual fashion. Local anesthetic was given subcutaneously to left radial region with Lidocaine 2%. Using a modified Seldinger technique, arterial access was obtained via the left radial artery, a 6Fr sheath was inserted. Left internal mammary artery graft to the LAD selective angiography was performed in multiple views using a 5 Fr. IM catheter. Left Coronary Artery selective angiography was performed in multiple views using a 5 Fr. JL3.5 catheter. Right Coronary Artery selective angiography was then performed in multiple views using a 5 Fr. 3DRC (Ángel) catheter. Saphenous Vein graft to the OM 1 sequential to PDA selective angiography was performed in multiple views using a 5 Fr. JR 4 catheter. CORONARY ANGIOGRAPHY DOMINANCE: Right Dominant LEFT HEART ASSESSMENT Left Ventricular Ejection Fraction: by LV Gram 50 % Normal Left Ventricular systolic function LEFT MAIN: Previously placed stent in the distal segment is patent LEFT ANTERIOR DESCENDING ARTERY: Proximal to mid segment with high-grade stenosis CIRCUMFLEX ARTERY: Previously stented in the proximal mid and distal segments are noted to be patent. There is a branch to an obtuse marginal branch which has high-grade stenosis present. There is some in-stent stenosis noted distally of about 70%. RIGHT CORONARY ARTERY: Dominant vessel previously stented with high-grade 99% in-stent stenosis in proximal 70% stenosis noted distal vessel appears to be totally occluded GRAFTS: GOMEZ graft to the Mid LAD Patent with mild distal disease. There is a side branch which was not clipped off. Sequential graft to the Obtuse marginal branch as well as the posterior descending artery which is patent and unchanged from before COMPLICATIONS PROCEDURE MEDICATIONS Fentanyl 50 mcg IV Versed 1 mg IV Versed 1 mg IV Oxygen: 2 L/min via nasal cannula Heparin given IA 03/23/2023 09:12:56 Heparin 6000 unit(s) IV 03/23/2023 09:52:14 Verapamil 2.5mg, Ntg 100mcgs, 3000 units of Heparin given IA 03/23/2023 09:12:56 SUMMARY OF HEMODYNAMIC DATA Time AIR REST ECG 08:32:40 AO 106/69 (87) SA 09:14:56 AO 103/67 (84) 09:24:28 Signed By Ritesh Read MD On 03/23/2023 10:02:43 Ritesh Read MD
--- NOTE | 2023-03-23 10:30 | EKG12_ITS ---
Test Reason : RHYTHM CHANGE Blood Pressure : / mmHG Vent. Rate : 071 BPM Atrial Rate : 071 BPM P-R Int : 228 ms QRS Dur : 100 ms QT Int : 420 ms P-R-T Axes : 038 -31 028 degrees QTc Int : 456 ms Sinus rhythm with 1st degree A-V block Left axis deviation Abnormal ECG When compared with ECG of 20-MAR-2023 17:48, MANUAL COMPARISON REQUIRED, DATA IS UNCONFIRMED Confirmed by ASIA LONG, NATHALY ([id number]), video editor SILAS LEIVA ([id number]) on 03/24/2023 10:28:02 AM Referred By: Confirmed By:NATHALY BETANCOURT MD
[2023-03-23] MEDS: Cholecalciferol (Vit D3) 125 MCG CAPSULE (5,000 UNITS) PO (10:47)
[2023-03-23] MEDS: Magnesium Chloride 64 MG Delay Rel.Tablet 128 MG PO (10:47)
--- NOTE | 2023-03-23 11:22 | CRPHASE1_ITS ---
Patient Communication Former Patient:: Phase I PHII Cardiac Rehab Discussed with Patient:: Yes Guide to Cardiac Rehab Given to Patient:: Yes Cardiac Rehab Facility Choice List Given to Patient:: Yes Choice Program [facility] CR PHII:: Communication Given to CR Choice Program Other:: Communication Given to CR Buffing Line Set Up Worker:: Nelsy Golden Cardiac Rehabilitation Info Cardiac Rehabilitation Program Information: Cardiac Rehab The cardiac rehab team at [facility] consists of highly skilled exercise physiologists, nurses, respiratory therapists and physicians working together with you. Our purpose is to help you have a full recovery and achieve the goals you set for yourself. Over the years many of our patients have returned to activities they assumed they would never do again! We can help restore your confidence and motivation to make lifestyle changes that can have a significant impact on your health and quality of life! We can help answer questions and concerns you may have about exercise, lifestyle, medications, diet, stress and anxiety which are common following a hospitalization. WE monitor ECG and vital signs during exercise and discuss your progress with you and report to your physician(s). Cardiac Rehab is proven to help reduce readmissions, improve functional capacity and lower recurrence of problems with your heart. Our Cardiac Rehab program is Certified by the [place] Association of Cardio-Vascular and Pulmonary Rehabilitation (AACVPR) and Accredited by the [place] [employer] of [employer] through our [facility]. You can contact us at . We invite you to call us with your questions or to get started in our program. If you have other questions or concerns be sure to ask your physician/provider during your follow-up visit. WE look forward to seeing you!
--- NOTE | 2023-03-23 11:23 | CRPH1.INSTRU ---
General Education CAD and cardiac anatomy and function:: Patient communicates acknowledgment Explanation of diagnoses and procedures:: Patient communicates acknowledgment Sign/Symptoms of [place]:: Patient communicates acknowledgment Antiplatelet therapy: Patient communicates acknowledgment Proper use of NTG-SL: Patient communicates acknowledgment Emergency procedures and activation of EMS: Patient communicates acknowledgment Compliance of all prescribed medications: Patient communicates acknowledgment Smoking Patient Nicotine/Smoking Risk Factors Are:: Non-smoker Dyslipidemia Patient Dyslipidemia Risk Factors Are:: Total Cholesterol Recommendations Include:: Therapeutic Lifestyle Change dietary guidelines Dyslipidemia Response Code:: Patient communicates acknowledgment Overweight/Obesity Patient Overweight/Obesity Risk Factors Are:: BMI Normal [24-29 & > 65 years old], Overweight = 26-29 Overweight/Obesity:: Patient communicates acknowledgment Hypertension Recommendations Include:: Maintain BP <130/85 Hypertension:: Patient communicates acknowledgment Heart Disease Patient Heart Disease Risk Factors Are:: Previous cardiac event Recommendations Include:: Educated family members of their risk Heart Disease Response Code:: Patient communicates acknowledgment Diabetes Patient Diabetes Risk Factors Are:: No documented hx of diabetes Metabolic Syndrome Metabolic Syndrome Response Code:: Not instructed Sedentary Recommendations Include:: Benefits of regular exercise Sedentary Response Code:: Patient communicates acknowledgment Stress Patient Stress Risk Factors Are:: Patient denies stress as a risk factor
--- NOTE | 2023-03-23 15:01 | CHAPLAIN ---
Type of Pastoral Visit _x__ Initial Visit ___ Follow-up Visit ___ On-call Visit ___ General Patient Visit ___ Spiritual Assessment ___ Family Conference ___ Bereavement ___ Rapid Response ___ Code Blue ___ Other (describe below) Pastoral Care Referral From _x__ Patient ___ Family ___ Nurse ___ Physician ___ Survey Research Manager ___ Assignment Agent ___ Other (describe below) Sacrament/Intervention _x__ Active listening ___ Anointing ___ Zoroastrian ___ Bereavement ___ Communion _x__ Marleny exploration ___ _x__ Life review _x__ Prayer ___ Reconciliation ___ Sacrament of Sick ___ Supportive presence ___ Wedding ___ Other (describe below) Pastoral Comments patient just returned from [employer]; pt spouse was with him; pt reports on many previous heart issues and procedures; pt identifies self as a man of marleny and a believer; pt tells of experiencing the presence of God in his health journey; pt welcomes presence and prayer of this hide buffer; spouse and pt express thanks for spiritual care support
--- NOTE | 2023-03-23 15:50 | CASEMGMT ---
RN?CM?WATER MANAGER?CM?to room to meet with patient for initial transition planning/care coordination?assessment.?RN?CM?introduced self and role at [facility].? Pt voices understanding and consents to?assessment?at this time.? Pt resting in bed in no distress at this time.? @ bedside. Pt is A/O at this time and answers all questions appropriately.?? Care providers, pharmacy, and demographics verified/updated at this time. PCP: ALYSA Bill Specialists: [facility]/cardiology Preferred Pharmacy: [facility] in [place] Insurance: MCR, MMO Prescription Benefit:?yes Living Will/HPOA:?Pt does not currently have LW/HCPOA and declines info at this time.? LNOK: , Emily. 2 sons. Living Arrangements:Lives w/. Independent. Transportation:?pt, DME: States has the following DME:?CPAP through [facility], pulse ox, BP machine HHC/SNF: No hx of either. No needs identified. Pt wishes to return home and states has no concerns with going home at time of discharge.??CM?to follow for any discharge planning/needs.? Pt and voice no concerns/needs at this time.? PLAN:??Home. Follow for anti-coag @ d/c. Debbi WALLN?RN?CM
[2023-03-23] MEDS: Rosuvastatin Calcium 5 MG Tablet PO (21:39)
[2023-03-23] MEDS: Lisinopril 2.5 MG Tablet PO (21:39)
[2023-03-24 04:27] VITALS: BP 124/87; PULSE 76; RESP 14; TEMP 36.9; O2SAT 99
[2023-03-24 05:11] LABS: Absolute Lymphocyte Count 1.65 X10^3/uL (0.83-4.51); Absolute Neutrophil Count 4.8 X10^3/uL (2.0-7.7); Basophil# 0.05 X10^3/uL; Basophil% 0.7 % (0-1); Eosinophil# 0.18 X10^3/uL; Eosinophils% 2.3 % (0-5); Hematocrit 48.5 % (40-54); Hemoglobin 15.6 g/dL (13.0-16.5); Lymphocyte # 1.65 X10^3/ul (0.83-4.51); Lymphocyte % 21.5 % (19-41); Mean Corp Hgb Conc 32.2 g/dL (32-36); Mean Corpuscular Hgb 30.6 pg (27.0-32.0); Mean Corpuscular Volume 95.3 fL (80-94); Mean Platelet Vol. 9.3 fl (6.2-12.0); Monocyte# 0.97 X10^3/uL; Monocyte% 12.6 % (0-10); NRBC Flagged by Analyzer 0 % (0-5); Neutrophil # 4.81 X10^3/uL (2.7-7.7); Neutrophil % 62.5 % (47-70); Platelet Count 195 K/mm3 (150-450); RBC Distribution Width CV 12.3 % (11.6-14.6); RBC Distribution Width SD 43.3 fl (35.1-43.9); Red Blood Count 5.09 M/mm3 (4.6-6.2); White Blood Count 7.7 K/mm3 (4.4-11.0)
--- NOTE | 2023-03-24 05:38 | EKG12_ITS ---
Test Reason : AM EKG Blood Pressure : / mmHG Vent. Rate : 065 BPM Atrial Rate : 065 BPM P-R Int : 222 ms QRS Dur : 104 ms QT Int : 422 ms P-R-T Axes : 040 -28 019 degrees QTc Int : 438 ms Sinus rhythm with 1st degree A-V block Otherwise normal ECG When compared with ECG of 23-MAR-2023 10:30, MANUAL COMPARISON REQUIRED, DATA IS UNCONFIRMED Confirmed by ASIA LONG, NATHALY ([id number]), society editor SILAS LEIVA ([id number]) on 03/25/2023 9:39:55 AM Referred By: Confirmed By:NATHALY BETANCOURT MD
[2023-03-24 05:57] LABS: ALB/GLOB Ratio 0.8 RATIO (0.9-2.4); AST(SGOT) 21 U/L (15-37); Alanine Aminotransfer ALT/SGPT 34 U/L (16-61); Albumin, Serum 3.4 g/dL (3.2-5.0); Alkaline Phosphatase 53 U/L (45-117); Anion Gap 2 (5-15); BUN 18 mg/dL (7-18); BUN/Creat Ratio 20.4 RATIO (10-20); Chloride 107 mmol/L (98-107); Creatinine, Serum 0.88 mg/dL (0.70-1.30); EST Glomerular Filtration Rate 92 mL/min (>60); Est Glom Filt Rate - Afr Amer 111 mL/min (>60); Glucose 105 mg/dL (74-106); Potassium 3.6 mmol/L (3.5-5.1); Protein, Total 7.4 g/dL (6.4-8.2); Sodium Level 134 mmol/L (136-145)
[2023-03-24 08:00] VITALS: O2SAT 96
[2023-03-24] MEDS: Aspirin E.C. 81 MG Tablet PO (09:00)
[2023-03-24] MEDS: Cholecalciferol (Vit D3) 125 MCG CAPSULE (5,000 UNITS) PO (09:19)
[2023-03-24] MEDS: Clopidogrel Bisulfate 75 MG Tablet PO (09:19)
[2023-03-24] MEDS: Magnesium Chloride 64 MG Delay Rel.Tablet 128 MG PO (09:19)
[2023-03-24] MEDS: 0.9% Saline Lock 10 ML Syringe IV (09:19)
--- NOTE | 2023-03-24 09:44 | DS.PCM_ITS ---
Providers Date of Admission: 03/23/23 Date of Discharge: 03/24/23 Primary Care Physician: ALYSA Bill Consultations 03/20/23 17:12 Consult: Cardiology Routine Consulting Provider: Cameron Mccoy Reason for Consult: Chest Pain EMERGENT Consult: No MD Notified: Yes Date Notified: 03/20/23 Time Notified: 16:22 Method of Notification: Text Reason For Visit: ANGINA Diagnosis Discharge Diagnosis (1) Chest pain: Status: Acute Code(s): R07.9 - Chest pain, unspecified (2) History of coronary artery stent placement: Status: Resolved Code(s): Z95.5 - Presence of coronary angioplasty implant and graft (3) History of hypertension: Status: Acute Code(s): Z86.79 - Personal history of other diseases of the circulatory system (4) H/O coronary artery bypass surgery: Status: Resolved Code(s): Z95.1 - Presence of aortocoronary bypass graft Plan #CAD s/p CABG and PCI 03/23/23 #HTN Medications at Discharge Home Medications aspirin 81 mg tablet,delayed release (Adult Low Dose Aspirin) 81 mg PO DAILY [facility] 01/29/21 cholecalciferol (vitamin D3) 125 mcg (5,000 unit) tablet 125 mcg PO DAILY vitamin 03/10/22 magnesium oxide 400 mg PO QHS supplement 03/10/22 clopidogrel 75 mg tablet (Plavix) 75 mg PO QDAY anti platelet #90 tabs 01/01/23 lisinopril 2.5 mg tablet 2.5 mg PO QHS bp 03/20/23 rosuvastatin 5 mg tablet (Crestor) 5 mg PO QHS 03/20/23 Hospital Course Procedures - (Heart cath, echo) Summary of Care Provided Minutes Spent on Discharge: 31 Hospital Course: 68-year-old male with a history of coronary artery disease with stenting in 2021 and history of CABG as well as hypertension who presented to [facility] 03/20/2023 with chest pain over 1 week. He did not have elevated troponin and EKG unremarkable but given his history he was admitted for unstable angina. He is continued on aspirin, clopidogrel, statin and cardiology evaluated. Initially stress test offered but patient reports in the past he had a negative stress test but a positive cath and ultimate decision was to go forward with heart cath. -Cardiac cath 03/23: First obtuse marginal branch with in-stent stenosis of 90% and he underwent PCI. He tolerated this well and had no further chest pain or complaints. Echo obtained during his admission with EF 50 to 55% with no regional wall motion abnormalities. On day of discharge he had no complaints and was tolerating his medications. On follow-up can consider starting beta-misa, unclear why he is not presently on one and may benefit mo ving forward. Discharge instructions as followed: -You will need to follow-up with cardiology upon discharge, please call the office of Dr. Read upon discharge to schedule your hospital follow-up a ppointment ) -You will be very importantly continue aspirin, Plavix, lisinopril 2.5 mg, and Crestor.? Your employee benefits administrator can make further adjustments as needed at your outpatient follow-up appointment -Do only light and easy activities for 2 to 3 days after your stent placement, ask for help with chores and errands while you recover and have someone drive you to your appointments. -Unless your job involves lifting you may return to normal activities within 2 days -Please take your medications as prescribed, do not skip doses -Check your incisions every day for signs of infection which would include redness, swelling, leaking.? It is normal to have a small bruise or bump where the catheter was placed but a bruise that is getting larger is not normal.? Please tell your healthcare team about this.? Please proceed to the emergency department if you have uncontrollable bleeding from the site. -It is important to eat a diet that is low in fat, salt, and cholesterol -You will be set up with cardiac rehab upon discharge, it is important that you follow-up -Okay to shower from the day after your heart catheterization but keep your incision site clean and dry. -Please call your primary care provider's office upon discharge to schedule a hospital follow up within 1 week. -For any concerning signs or symptoms please call 911 or proceed to the nearest emergency department Physical Exam Narrative General: Alert, oriented, no apparent distress HEENT: Atraumatic, normocephalic Eyes: Anicteric, normal conjunctiva, extraocular movements grossly intact Neck: Supple Respiratory: Clear to auscultation bilaterally, normal respiratory effort Cardiovascular: Regular rate and rhythm GI: Soft, nontender, nondistended Extremities: No edema Musculoskeletal: Moving all extremities Neuro: No overt focal neurological deficits Skin: No rashes appreciated Psych: Cooperative Weight / BMI Weight Weight: 91.172 kg Body Mass Index (BMI) 31.4 ABG / Lab / Microbiology Data Result Diagrams: 03/24/23 04:53 03/24/23 04:53 Laboratory: Laboratory Results - last 24 hr 03/24/23 04:53: WBC 7.7, RBC 5.09, Hgb 15.6, Hct 48.5, MCV 95.3 H, MCH 30.6, MCHC 32.2, RDW Std Deviation 43.3, RDW Coeff of Adrian 12.3, Plt Count 195, MPV 9.3, Immature Gran % (Auto) 0.400, Neut % (Auto) 62.5, Lymph % (Auto) 21.5, [place] % (Auto) 12.6 H, Eos % (Auto) 2.3, Baso % (Auto) 0.7, Absolute Neuts (auto) 4.8, Absolute Lymphs (auto) 1.65, Nucleated RBC % 0 03/24/23 04:53: Sodium 134 L, Potassium 3.6, Chloride 107, Carbon Dioxide 25.0, Anion Gap 2 L, BUN 18, Creatinine 0.88, Estim Creat Clear Calc 77.20, Est GFR (MDRD) Af Amer 111, Est GFR (MDRD) Non-Af 92, BUN/Creatinine Ratio 20.4 H, Glucose 105, Calcium 9.0, Total Bilirubin 0.50, AST 21, ALT 34, Alkaline Phosphatase 53, Total Protein 7.4, Albumin 3.4, Globulin 4.0, Albumin/Globulin Ratio 0.8 L D/C Instructions Discharge Diet: - (DASH diet) Meaningful Use Info Meaningful Use Diagnoses (Choose all that apply): AMI AMI/Post PCI/Angioplasty Aspirin given w/in 24hrs of arrival?: Yes ASA at discharge?: Yes Antiplatelet Therapy at Discharge:: Yes Statins at discharge?: Yes Beka/ARB at discharge?: Yes Beta Misa at discharge?: No Reason Beta Misa not ordered:: Drug Interaction Done w/ Acute AL measure.: Yes Documented LVEF (%): 55 Discharge Plan Admission Admit Date/Time: 03/23/23 15:00 Primary Reason for Your Visit: Chest pain Attending Provider: Anum Dove Primary Care Provider: Carlos Finley Consulting Providers: Cameron Mccoy ; Shahid Ibrahim Instructions Patient Instructions: Cardiac Catheterization Dc Additional Instructions / Restrictions: DISCHARGE INSTRUCTIONS PLEASE READ *Please take this with you to your next doctors appointment* --You will need to follow-up with cardiology upon discharge, please call the office of Dr. Read upon discharge to schedule your hospital follow-up appoint ment ( [phone]) -You will be very importantly continue aspirin, Plavix, lisinopril 2.5 mg, and Crestor. Your employee benefits administrator can make further adjustments as needed at your outpatient follow-up appointment -Do only light and easy activities for 2 to 3 days after your stent placement, ask for help with chores and errands while you recover and have someone drive you to your appointments. -Unless your job involves lifting you may return to normal activities within 2 days -Please take your medications as prescribed, do not skip doses -Check your incisions every day for signs of infection which would include redness, swelling, leaking. It is normal to have a small bruise or bump where t he catheter was placed but a bruise that is getting larger is not normal. Please tell your healthcare team about this. Please proceed to the emergency department if you have uncontrollable bleeding from the site. -It is important to eat a diet that is low in fat, salt, and cholesterol -You will be set up with cardiac rehab upon discharge, it is important that you follow-up -Okay to shower from the day after your heart catheterization but keep your incision site clean and dry. -Please call your primary care provider's office upon discharge to schedule a hospital follow up within 1 week. -For any concerning signs or symptoms please call 911 or proceed to the nearest emergency department Discharge Orders/Prescriptions Prescriptions: Continued aspirin [Adult Low Dose Aspirin] 81 mg tablet,delayed release (DR/EC) 81 mg PO DAILY cholecalciferol (vitamin D3) 125 mcg (5,000 unit) tablet 125 mcg PO DAILY magnesium oxide 400 mg magnesium tablet 400 mg PO QHS lisinopril 2.5 mg tablet 2.5 mg PO QHS rosuvastatin [Crestor] 5 mg tablet 5 mg PO QHS clopidogrel [Plavix] 75 mg tablet 75 mg PO QDAY Qty: 90 3RF Referrals / Follow Up: Ritesh Read MD [Med Staff - Active Staff] - See Referral Note (You will need to follow-up with cardiology upon discharge, please call the office of Dr. Read upon discharge to schedule your hospital follow-up appointment (ph [phone])) Carlos Finley PA [Primary Care Provider] - Within 1 Week Disposition Disposition (needs filled in before D/C Order can be placed): Home, Self Care Charges/Coding Visit Charges Inpatient E&M: 50027 Disch Hosp >30min
--- NOTE | 2023-03-24 09:55 | PHA.DC.MR ---
Pharmacy Service has performed discharge medication reconciliation for this patient. The patient's discharge medication list was reviewed for discrepancies and discrepancies were resolved. Home Medications aspirin 81 mg tablet,delayed release (Adult Low Dose Aspirin) 81 mg PO DAILY [facility] 01/29/21 cholecalciferol (vitamin D3) 125 mcg (5,000 unit) tablet 125 mcg PO DAILY vitamin 03/10/22 magnesium oxide 400 mg PO QHS supplement 03/10/22 clopidogrel 75 mg tablet (Plavix) 75 mg PO QDAY anti platelet #90 tabs 01/01/23 lisinopril 2.5 mg tablet 2.5 mg PO QHS bp 03/20/23 rosuvastatin 5 mg tablet (Crestor) 5 mg PO QHS 03/20/23
--- NOTE | 2023-03-24 10:00 | EKG12_ITS ---
Test Reason : Blood Pressure : / mmHG Vent. Rate : 075 BPM Atrial Rate : 075 BPM P-R Int : 202 ms QRS Dur : 102 ms QT Int : 412 ms P-R-T Axes : 029 -33 045 degrees QTc Int : 460 ms Normal sinus rhythm Left axis deviation Abnormal ECG When compared with ECG of 09-OCT-2022 05:20, Criteria for Inferior infarct are no longer Present Nonspecific T wave abnormality no longer evident in Inferior leads Confirmed by ASIA LONG, NATHALY ([id number]), technical editor SILAS LEIVA ([id number]) on 03/24/2023 10:45:55 AM Referred By: MICHAEL Confirmed By:NATHALY BETANCOURT MD
[2023-03-24 10:27] VITALS: BP 122/83; PULSE 74; RESP 16; TEMP 36.8; O2SAT 100
[2023-03-24 13:56] VITALS: BP 113/76; PULSE 70; RESP 16; TEMP 36.4; O2SAT 97
--- NOTE | 2023-03-25 13:47 | CL.I_ITS ---
Patient Name: SERGIO JOSEPH Study Date: 03/23/2023 Performing: Erin Golden MD Ht: 67 inches 170.18 cm : 1955 Wt: 201 lbs 91.17 kg Age: 68 Gender: male BSA: 2.03 PROCEDURE(S) PERFORMED IC12-(34460/C9600)DIVINE W/WO PTCA, SINGLE CORONARY ARTERY CLINICAL PROFILE AND CO-MORBIDITIES Indications: Worsening Angina Heart Failure: None Stress/Imaging Stress/Image Study Performed: No CAD Presentations: Unstable angina. CONCLUSIONS Successful PCI of OM1 with DIVINE RECOMMENDATIONS DESCRIPTION OF PROCEDURE The patient arrived to the procedure lab. The risks and benefits of the procedure as well as a full description of our services here and current unavailability of surgical backup were fully explained to the patient and/or their significant other prior to the catheterization. The Timeout was completed, verifying the correct patient and procedure. The patient's procedural site was prepped and draped in the usual fashion. Local anesthetic was given subcutaneously to left radial region with Lidocaine 2% Using a modified Seldinger technique,arterial access was obtained via the left radial artery, a 6Fr sheath was inserted. Left internal mammary artery graft to the LAD selective angiography was performed in multiple views using a 5 Fr. IM catheter. Left Coronary Artery selective angiography was performed in multiple views using a 5 Fr. JL3.5 catheter. Right Coronary Artery selective angiography was then performed in multiple views using a 5 Fr. 3DRC (Ángel) catheter. Saphenous Vein graft to the OM 1 sequential to PDA selective angiography was performed in multiple views using a 5 Fr. JR 4 catheter.The images were reviewed and options discussed. A decision was then made to proceed with an Intervention, IVUS or other adjunct procedure. PTCA balloon inflated at 8 atms for 19 secs. XB 3.0 Guide catheter was inserted and engaged into the LCA. [employer] [place] Guide wire was advanced to the Circumflex. Euphora 2.0 x 12 Balloon catheter was inserted. Balloon catheter was advanced across lesion in the circumflex, mid. PTCA balloon inflated at 12 atms for 14 secs. PTCA balloon inflated at 12 atms for 10 secs. PTCA balloon inflated at 14 atms for 16 secs. PTCA balloon inflated at 14 atms for 14 secs. PTCA balloon inflated at 14 atms for 12 secs. PTCA balloon inflated at 14 atms for 6 secs. PTCA balloon inflated at 16 atms for 12 secs. Angiogram performed post balloon dilatation. Resolute [place] 2.25 x 8 Drug Eluting stent was inserted. Drug Eluting stent was advanced across the lesion in the circumflex, mid. Angiogram performed pre stent deployment. Angiogram performed post stent deployment. The arterial sheath was pulled and a TR Band was applied for hemostasis INTERVENTION INFORMATION LESION SITE: Circumflex (Mid) Lesion Complexity: High/C, chronic total occlusion: No, lesion at bifurcation: No, thrombus present: No, lesion length: 7 mm, culprit lesion: Yes, Previously treated lesion: Yes, Timeframe of previous treatment: Time unknown, Previously treated with a stent: Yes Stent Type: with DIVINE, In-stent Thrombosis: No Pre Stenosis: 99 % Pre intervention DAVDI flow: 3 PROCEDURE: Drug Eluting Stent with pre and post dilatation Post Stenosis: 0 % Post intervention DAVID flow: 3 Lesion Devices: Campbell .014 190cm [employer] [place] Straight Cordis 6 Fr XB3.0 100cm Guide Catheter Medtronic SC EUPHORA RX 2.0x12 BALLOON Medtronic Resolute [place] RX DIVINE 2.25x08 COMPLICATIONS No Complications PROCEDURE MEDICATIONS Fentanyl 50 mcg IV Versed 1 mg IV Versed 1 mg IV Oxygen: 2 L/min via nasal cannula Heparin given IA 03/23/2023 09:12:56 Heparin 6000 unit(s) IV 03/23/2023 09:52:14 Verapamil 2.5mg, Ntg 100mcgs, 3000 units of Heparin given IA 03/23/2023 09:12:56 SUMMARY OF HEMODYNAMIC DATA Time AIR REST ECG 08:32:40 AO 106/69 (87) SA 09:14:56 AO 103/67 (84) 09:24:28 AIR REST 10:36:42 Signed By Erin Golden MD On 03/25/2023 13:45:56 Erin Golden MD
== END 2023-03-24 14:01 | disposition home or self-care (01) | DRG 247 ==
LOC: ED 16:12 → PCU 03-21 17:07
PROVIDERS: Emergency Provider Emergency Medicine; PCP Physician Assistant; Visit Provider Internal Medicine
DX: I25.110 Atherosclerotic heart disease of native coronary artery with unstable angina pectoris (principal); E78.00 Pure hypercholesterolemia, unspecified; I10 Essential (primary) hypertension; G47.33 Obstructive sleep apnea (adult) (pediatric); I25.2 Old myocardial infarction; Z95.1 Presence of aortocoronary bypass graft; Z95.5 Presence of coronary angioplasty implant and graft; Z79.02 Long term (current) use of antithrombotics/antiplatelets; Z79.82 Long term (current) use of aspirin; Z79.899 Other long term (current) drug therapy; Z86.16 Personal history of COVID-19
CPT/HCPCS: 36415; 71045; 80048; 80053; 84484; 85025; 92928; 93005; 93306; 93455; 99152; 99153; 99284; C1894; J7030; Q9957; Q9967; A4216; C1769; C1887; C8929; C9600; J2405

== ENCOUNTER → 2023-08-26 | Outpatient (CLI) | payer MEDICARE, OTHER, SELFPAY ==
--- NOTE | 2023-08-26 08:01 | ART_ITS ---
Reason For Study: Claudication Procedure A bilateral lower extremity continuous wave Doppler with analog waveform analysis,segmental pressures,and ankle brachial indexes without exercise. Left Segmental Pressures Left brachial= 105mmHg. Left posterior tibial artery = 149mmHg. Left dorsalis pedis artery = 143mmHg. Left digit = 110 mmHg. Right Segmental Pressures Right brachial= 101mmHg. Right posterior tibial artery = 142mmHg. Right dorsalis pedis artery = 137mmHg. Right digit = 92 mmHg. Indices The right ankle brachial index by the posterior tibial artery is 1.35. The right ankle brachial index by the dorsalis pedis is 1.30. The right digital-brachial index is 0.88. The left ankle brachial index by the posterior tibial artery is 1.42. The left ankle brachial index by the dorsalis pedis is 1.36. The left digital-brachial index is 1.05. VL/Lower Ext Art Exam w/o Exercis Interpretation Summary Right NUSRAT 1.35, normal. TBI and Doppler/PVR waveforms of the right leg normal a t rest. Left NUSRAT 1.42, artificially elevated. TBI and Doppler/PVR waveforms of the left leg normal at rest. Ordering Physician: Bakari Joseph Referring Physician: Carlos Finley Performed By: Mansi Joseph RDCS/RVT
--- NOTE | 2023-08-26 08:01 | CDU_ITS ---
Reason For Study: Dizziness Rt. Velocities/BP Lt. Velocities/BP Prox CCA 90/15 cm/sec. Prox CCA 105/26 cm/sec. Mid CCA 72/15 cm/sec. Mid CCA 83/26 cm/sec. Dist CCA 81/23 cm/sec. Dist CCA 72/27 cm/sec. Prox ICA 48/8 cm/sec. Prox ICA 64/22 cm/sec. Mid ICA 37/14 cm/sec. Mid ICA 79/29 cm/sec. Dist ICA 37/12 cm/sec. Dist ICA 61/27 cm/sec. Rt. ICA/CCA = 0.7. Lt. ICA/CCA = 0.9. Prox ECA 115/21 cm/sec. Prox ECA 93/18 cm/sec. Rt. Vert. 42/16 cm/sec. Lt. Vert. 42/17 cm/sec. Right Extracranial There is heterogeneous, irregular atherosclerotic plaque noted in the right common carotid artery. There is heterogeneous, irregular atherosclerotic plaque noted in the right internal carotid artery. There is no significant atherosclerotic plaque noted in the right external carotid artery. Antegrade flow is noted in the right vertebral artery. Left Extracranial There is heterogeneous, irregular atherosclerotic plaque noted in the left common carotid artery. There is heterogeneous, irregular atherosclerotic plaque noted in the left internal carotid artery. There is heterogeneous, irregular atherosclerotic plaque noted in the left external carotid artery. Antegrade flow is noted in the left vertebral artery. Procedure Carotid Duplex [id number]. This is a Carotid Duplex examination using B-mode, color flow and specral Doppler. Exam performed in department. VL/Carotid Duplex Ultrasound Interpretation Summary Mild (<50%) stenosis right extracranial internal carotid. Mild (<50%) stenosis left extracranial internal carotid. Patent and antegrade vertebrals bilaterally. Ordering Physician: Bakari Joseph Referring Physician: Carlos Finley Performed By: Mansi Joseph, ANGELICACS, RVT
== END | disposition home or self-care (01) ==
LOC: CVS 08:01
PROVIDERS: PCP Physician Assistant; Referring Provider Nurse Practitioner Family; Visit Provider Nurse Practitioner Family
DX: R42 Dizziness and giddiness (principal); I73.9 Peripheral vascular disease, unspecified; I65.22 Occlusion and stenosis of left carotid artery; I35.1 Nonrheumatic aortic (valve) insufficiency; E78.00 Pure hypercholesterolemia, unspecified; Z95.1 Presence of aortocoronary bypass graft
CPT/HCPCS: 93880; 93923

== ENCOUNTER → 2024-03-12 | Outpatient (CLI) | payer MEDICARE, OTHER, SELFPAY ==
[2024-03-12 10:31] LABS: ALB/GLOB Ratio 0.8 RATIO (0.9-2.4); AST(SGOT) 22 U/L (15-37); Alanine Aminotransfer ALT/SGPT 29 U/L (16-61); Albumin, Serum 3.3 g/dL (3.2-5.0); Alkaline Phosphatase 40 U/L (45-117); Anion Gap 3 (5-15); BUN 17 mg/dL (7-18); BUN/Creat Ratio 19.7 RATIO (10-20); Calcium,Total 8.9 mg/dL (8.5-10.1); Chloride 104 mmol/L (98-107); Cholesterol 134 mg/dL (200); Creatinine, Serum 0.86 mg/dL (0.70-1.30); EST Glomerular Filtration Rate 94 mL/min (>60); Est Glom Filt Rate - Afr Amer 114 mL/min (>60); Glucose 96 mg/dL (74-106); High Density Lipoprotein 56 mg/dL; Magnesium 2.1 mg/dL (1.6-2.6); PSA,Total - Annual Screen 0.54 ng/mL (0.00-4.00); Protein, Total 7.3 g/dL (6.4-8.2); Sodium Level 135 mmol/L (136-145); Triglycerides 70 mg/dL; Very Low Density Lipoprotein 14 mg/dL (5-40)
== END | disposition home or self-care (01) ==
LOC: MTLAB 08:48 → LAB 08:50
PROVIDERS: Nurse Practitioner Family; PCP Physician Assistant; Referring Provider Physician Assistant; Visit Provider Physician Assistant
DX: Z13.1 Encounter for screening for diabetes mellitus (principal); Z13.220 Encounter for screening for lipoid disorders; E61.2 Magnesium deficiency; E78.00 Pure hypercholesterolemia, unspecified; I25.10 Atherosclerotic heart disease of native coronary artery without angina pectoris; Z13.21 Encounter for screening for nutritional disorder; Z12.5 Encounter for screening for malignant neoplasm of prostate
CPT/HCPCS: 36415; 80053; 80061; 82248; 83735; 84153; G0103

== ENCOUNTER 2024-08-25 14:12 | Inpatient (IN) | payer MEDICARE, OTHER, SELFPAY ==
[2024-08-25] VITALS (11 sets, daily range): BP systolic 111–145; BP diastolic 76–91; PULSE 60–103; RESP 14–18; TEMP 36.3–36.9; O2SAT 94–98; BMI 32.9; BMI 32.5
--- NOTE | 2024-08-25 14:25 | RAD_ITS ---
STUDY: X-RAY CHEST REASON FOR EXAM: Male, 69 years old. Chest pain. TECHNIQUE: Frontal and lateral views of the chest. COMPARISON: March 20, 2023 FINDINGS: Stable mild hyperinflation with scattered granulomatous calcifications. There is no demonstrated pleural abnormality. Borderline cardiomegaly with sternotomy wires and changes of coronary artery bypass grafting, unaltered. Normal mediastinum and chanda. Normal visualized pulmonary arteries. Normal visualized aortic arch and descending thoracic aorta. Normal visualized thoracic spine. Normal visualized ribs, clavicles, and shoulders. No abnormality of the visualized soft tissue structures of the upper abdomen. RAD/Chest PA and Lateral IMPRESSION: Stable chest with no acute or active cardiopulmonary disease. Electronically Signed: Robert Joaquin MD at 14:35 EDT ,
[2024-08-25 14:36] LABS: Absolute Lymphocyte Count 1.49 X10^3/uL (0.83-4.51); Absolute Neutrophil Count 4.9 X10^3/uL (2.0-7.7); Basophil# 0.04 X10^3/uL; Basophil% 0.5 % (0-1); Eosinophil# 0.13 X10^3/uL; Eosinophils% 1.8 % (0-5); Hematocrit 43.8 % (40-54); Hemoglobin 14.1 g/dL (13.0-16.5); Lymphocyte # 1.49 X10^3/ul (0.83-4.51); Lymphocyte % 20.4 % (19-41); Mean Corp Hgb Conc 32.2 g/dL (32-36); Mean Corpuscular Hgb 30.2 pg (27.0-32.0); Mean Corpuscular Volume 93.8 fL (80-94); Mean Platelet Vol. 9.8 fl (6.2-12.0); Monocyte# 0.77 X10^3/uL; Monocyte% 10.5 % (0-10); NRBC Flagged by Analyzer 0 % (0-5); Neutrophil # 4.87 X10^3/uL (2.7-7.7); Neutrophil % 66.5 % (47-70); Platelet Count 170 K/mm3 (150-450); RBC Distribution Width CV 12.9 % (11.6-14.6); RBC Distribution Width SD 44.4 fl (35.1-43.9); Red Blood Count 4.67 M/mm3 (4.6-6.2); White Blood Count 7.3 K/mm3 (4.4-11.0)
[2024-08-25 15:15] LABS: Anion Gap 7 (5-15); BUN 19 mg/dL (7-18); BUN/Creat Ratio 15.8 RATIO (10-20); Calcium,Total 9.3 mg/dL (8.5-10.1); Chloride 107 mmol/L (98-107); EST Glomerular Filtration Rate 64 mL/min (>60); Est Glom Filt Rate - Afr Amer 78 mL/min (>60); Estimated Creatinine Clearance 65.72 ml/min; Glucose 131 mg/dL (74-106); Potassium 3.7 mmol/L (3.5-5.1); Sodium Level 139 mmol/L (136-145); Troponin-I HS (w/2H Reflex) 524 pg/mL (3.0-78.0)
--- NOTE | 2024-08-25 15:24 | ED.VIS.CHEST ---
HPI History of Present Illness Chief Complaint: Chest Pain Informant: patient Narrative Narrative: Patient is a 69-year-old male with history of coronary artery disease (states he received 10 stents prior to having a CABG), hypertension and hyperlipidemia presenting with chest discomfort. Patient states that he is been having worsening exertional chest pain for the past 2 to 3 days. He states today he was trying to [place] and he felt like his body was heating up. He had tightness in his chest and nausea. And improved with rest but then he started struggling again and it happened again. He notes that he recently was on vacation he went hiking in the [employer]. While he was walking up a steep incline he felt very winded and felt a pain in his chest. This was on Thursday, 4 days ago. He is concerned that it could be his heart given his history. Denies any new swelling of his legs but notes he has some chronic swelling of his right leg compared to the left. This is unchanged. Denies any significant shortness of breath. Denies any history of DVT or PE. Is on 81 mg aspirin and Plavix and took it today. Denies any associated jaw, neck or back pain. Denies any other GI or symptoms. No other complaints or concerns at this time. Prior Similar Symptoms: Yes, With Prior [place] and With Prior Angina [facility] Medical History History of hypertension History of CAD (coronary artery disease) CAD (coronary artery disease) COVID-19 History of coronary artery stent placement (10/08/22) Non-rheumatic mitral regurgitation Pure hypercholesterolemia Essential hypertension Atherosclerotic heart disease of [place] coronary artery without angina pectoris Home Medications ?Medication ?Instructions ?Recorded ?Last Taken ?Type aspirin 81 mg tablet,delayed 81 mg PO DAILY [facility] 01/29/21 03/20/23 History release (Adult Low Dose Aspirin) magnesium oxide 400 mg PO QHS supplement 03/10/22 03/19/23 History clopidogrel 75 mg tablet (Plavix) 75 mg PO QDAY anti platelet #90 08/17/23 Unknown Rx tabs lisinopril 2.5 mg tablet 2.5 mg PO QHS bp #90 tabs 08/17/23 Unknown Rx cholecalciferol (vitamin D3) 100 100 mcg PO DAILY 07/22/24 Unknown History mcg (4,000 unit) tablet rosuvastatin 5 mg tablet 5 mg PO DAILY 08/25/24 Unknown History Allergy/AdvReac Type Severity Reaction Status Date / Time niacin AdvReac Severe Hyperpigmen Verified 08/25/24 14:15 tation Rxjwstj-JTV-JqS Reductase AdvReac Severe Aches Verified 08/25/24 14:15 Inhibitor (Lvjrsgn-Pxy-Ikk Reductase Inhibitor) prednisone AdvReac Unknown Fast HR Verified 08/25/24 14:15 Family History Uncle CAD (coronary artery disease) Uncle CAD (coronary artery disease) Mother Cancer Breast CA Diabetes Hyperlipidemia Hypertension Father Emphysema lung Other Heart disease Surgical History History of coronary artery stent placement (03/23/23) Presence of coronary angioplasty implant and graft (~06/12/21) History of herniorrhaphy H/O coronary artery bypass surgery (02/27/21) History of left heart catheterization (LHC) (02/21/21) History of umbilical hernia repair Social History household members: spouse Smoking Status: Never smoker alcohol intake: never substance use type: does not use caffeine: Yes Type: coffee ROS ROS ED Constitutional Constitutional ED: Denies chills or fever(s) Cardiovascular Cardiovascular: Reports as per HPI and chest pain; Denies palpitations Respiratory/Chest Respiratory/Chest: Denies cough or dyspnea Gastrointestinal Gastrointestinal: Reports nausea; Denies vomiting Musculoskeletal Musculoskeletal: Denies arthralgias or myalgias Integumentary Denies rash Neurologic Neurologic: Denies headache(s) or weakness Hematologic/Lymphatic Hematologic/Lymphatic: Denies easy bleeding or easy bruising EXAM Physical Exam Const Vital Signs: 08/25/24 14:12 08/25/24 14:15 08/25/24 14:19 Temperature 98.4 F Temperature Source Oral Pulse Rate 103 H Respiratory Rate 17 Respiratory Effort Normal Non-Labored Blood Pressure 144/88 H Blood Pressure Mean 106 Pulse Ox 98 95 Oxygen Delivery Method Room Air Room Air 08/25/24 15:12 08/25/24 15:35 08/25/24 16:00 Temperature 98.0 F Temperature Source Pulse Rate 77 76 74 Respiratory Rate 16 16 18 Respiratory Effort Blood Pressure 121/81 H 121/81 H 145/91 H Blood Pressure Mean 94 94 109 Pulse Ox 95 98 96 Oxygen Delivery Method Room Air Room Air Positive well nourished and well developed General Appearance ED: well developed and NAD HEENT Reports moist mucous membranes Neck supple and no JVD Chest Wall inspection of chest normal and palpation of chest normal Resp normal respiratory effort and clear to auscultation bilaterally Cardio regular rate, regular rhythm and no murmurs Peripheral Pulses: pulses 2+ throughout GI normal to inspection, nondistended, normoactive bowel sounds, soft to palpation and non-tender Neuro oriented x3 Sensorium / Orientation: awake and alert Psych mental status grossly normal Skin no rashes or lesions noted and no wounds Skin Narrative: Well-healed midline sternotomy scar present Heart Score History: Highly Suspicious ECG: Normal Age: >/= 65 years Risk Factors: >/= 3 Risk Factors or History of CAD Troponin: >/=3 x Normal Limit Score: 8 MDM MDM MDM Narrative Medical decision making narrative: Patient evaluated for exertional chest pain from around the past few days. 2 episodes today. Has a significant cardiac history. Differential includes STEMI, NSTEMI, PE, dehydration and electrolyte abnormality as well as pneumothorax and pneumonia. Cardiac workup was obtained including EKG, delta high-sensitivity troponin, D-dimer, chest x-ray. Patient states he still has some very mild chest discomfort at this time so will be given nitroglycerin as well as 162 milligrams of aspirin as he took 81 mg earlier today. High sensitive troponin significantly elevated at 524. Dimer still pending at this time. Other lab work largely normal. Case is discussed with Dr. Hawk, cardiology on-call. He would like me to start the patient on metoprolol 25 mg twice daily, keep him n.p.o. after midnight as he will need a cardiac cath tomorrow. He will come down to the ER to evaluate the patient. Will continue to workup for rule out of PE as PE could cause similar presentation and change in labs. Will also add on a BNP. BNP is normal. D-dimer is only minimally elevated per age adjustment (0.69 when his upper limits with normal to be 0.67). As he is already on heparin drip will defer a CT at this time to help save him a contrast bolus as anticipated left calf tomorrow. Case is discussed with my physician, Dr. iqbal. Lab Data Attestation: I reviewed the patient's lab results. Labs: Laboratory Results - last 24 hr 08/25/24 14:14 WBC 7.3 RBC 4.67 Hgb 14.1 Hct 43.8 MCV 93.8 MCH 30.2 MCHC 32.2 RDW Std Deviation 44.4 H RDW Coeff of Adrian 12.9 Plt Count 170 MPV 9.8 Immature Gran % (Auto) 0.300 Neut % (Auto) 66.5 Lymph % (Auto) 20.4 [place] % (Auto) 10.5 H Eos % (Auto) 1.8 Baso % (Auto) 0.5 Absolute Neuts (auto) 4.9 Absolute Lymphs (auto) 1.49 Nucleated RBC % 0 PT 14.4 INR 1.1 APTT 28.0 D-Dimer Quant (PE/DVT) 0.69 H* Sodium 139 Potassium 3.7 Chloride 107 Carbon Dioxide 25.0 Anion Gap 7 BUN 19 H Creatinine 1.20 Estim Creat Clear Calc 65.72 Est GFR (MDRD) Af Amer 78 Est GFR (MDRD) Non-Af 64 BUN/Creatinine Ratio 15.8 Glucose 131 H Calcium 9.3 Troponin I High Sens 524 H* B-Natriuretic Peptide 45.7 Radiography Chest X-Ray - ED: 2 View, Read by ED Physician, Read by Radiologist and No Acute Disease Diagnostic Testing: Clinical Impression(s) from Imaging Studies Chest X-Ray 08/25/24 14:25 IMPRESSION: Stable chest with no acute or active cardiopulmonary disease. Electronically Signed: Robert Joaquin MD at 14:35 EDT , Rhythm Strip Rhythm Strip: Sinus Rhythm Rate: 98 Ectopy: None EKG Initial EKG: Attestation: I personally reviewed and interpreted this EKG as follows: Interpretation: Sinus Rhythm Comments: Normal sinus rhythm rate of 98 bpm First-degree AV block with a [place] interval of 214 Normal axis Normal QRS and QTc Normal ST segments Compared to prior EKG on 07/22/2024, patient has a rate increase (previously heart rate was 59) with no other acute changes Management Discussion w/another healthcare provider: Hospitalist and Transportation Operations Manager Critical Care Time Critical Care Time: Yes Critical care time (excluding procedures): 30-74 minutes (40), Discussing w/Patient &/or Family/Metal Cabinet Finisher, Discussing w/Consultants and Arranging Admission or Transfer Discharge Plan Dx/Rx/DC Orders Clinical Impression: NSTEMI (non-ST elevated myocardial infarction), H/O coronary artery bypass surgery, Essential hypertension, Angina of effort Disposition Disposition: Acute Care [facility] Discharge Date/Time: 08/25/24 17:36
[2024-08-25] MEDS: Aspirin 81 MG TAB.CHEW 162 MG PO (15:33)
[2024-08-25] MEDS: Heparin Injection (Vial) 5,000 UNIT/ML VIAL 4000 UNIT IV (15:48)
[2024-08-25] MEDS: HEPARIN/D5w 25,000 UNITS 25,000 UNITS/250 ML IV.SOLN. 10 UNITS CONT INF (15:49)
[2024-08-25 15:56] LABS: International Normalized Ratio 1.1; Prothrombin Time (Protime)PT. 14.4 SECONDS (11.7-14.9)
[2024-08-25 16:01] LABS: BNP,B-Type NATRIURETIC PEPTIDE 45.7 pg/mL (0-100)
[2024-08-25 16:10] LABS: D-Dimer Quantitative (DVT/PE) 0.69 FEU/ug/m (0.27-0.49)
--- NOTE | 2024-08-25 16:18 | PCM.CONS.C ---
Assessment & Plan Assessment/Plan (1) NSTEMI (non-ST elevated myocardial infarction): PLAN: Patient's symptoms are consistent with accelerating angina pectoris. Troponin is 500. His EKG does not show any definitive ischemic changes very subtle T wave changes are noted with normal sinus rhythm and a first-degree AV block. The patient is status post multiple stenting interventions before and after his coronary bypass graft surgery. Last catheterization was February 2023 at which time he had a distal OM branch in-stent restenosis restented. The patient remains on Plavix and aspirin. He will be fully anticoagulated with IV heparin. Nitroglycerin will be utilized as well as low-dose beta-lisa therapy which he will not tolerate long-term. Recommend the patient undergo a left heart catheterization within the next 24 hours. (2) H/O coronary artery bypass surgery: PLAN: Status post bypass graft surgery GOMEZ to the LAD and sequential saphenous vein graft to OM branch of the circumflex and PDA. Bypass surgery was January 2021. Post bypass the patient's had multiple stenting procedures done. These include the distal left main trunk proximal circumflex and some of the right coronary artery. (3) Essential hypertension: PLAN: Blood pressure is fairly well-controlled in the emergency department. He will be continued on his current medical regimen. (4) Pure hypercholesterolemia: PLAN: Lipids are at goal on rosuvastatin 5 mg daily. This is the only statin he has been able to tolerate. I would not recommend increasing the statin dose given his intolerance to multiple other interventions for statin therapy. PLAN: Plan 1. N.p.o. after midnight for left heart catheterization tomorrow morning. 2. Will add low-dose beta-lisa therapy, nitroglycerin paste, and fully anticoagulate with heparin overnight. 3. Plan for left heart catheterization tomorrow morning. The procedure left heart catheterization risk/benefit and alternatives were explained to the patient and his in detail they voiced understanding and agrees to proceed. HPI Consult Data Date of Consult: 08/25/24 HPI Narrative Reason for Consultation: Accelerating angina with positive troponins. HPI Narrative: SERGIO JOSEPH, is a 69 M who presents with a long history of coronary artery disease status post multiple interventions. Patient status post bypass graft surgery 02/27/2021 with a GOMEZ to the LAD sequential vein graft to the OM circumflex and PDA. The patient was subsequently cathed in May 2021 10/19/2022 and again in February 2023. At each 1 of these post CABG cath the patient has had some type of stenting intervention performed. The 3 grafts have remained patent. There are actually 2 grafts 1 of which is a sequential graft. The last catheterization March 23, 2023 showed that the previous extended stenting of the distal left main proximal circumflex and right coronary were patent in the distal left main and circumflex there was severe to severe disease in the [place] right coronary artery the 3 grafts were widely patent. The obtuse marginal branch of the circumflex had an high-grade stenosis. This subsequently was treated as an in-stent restenosis with drug-eluting stent. The patient was traveling in the [employer] this past couple of weeks and with hiking noted chest discomfort. Upon returning home he had recurrence of the chest symptoms while doing some shoveling in the yard. The symptoms abated with rest. The patient now presents to the emergency department at the insistence of his . He is currently denying any significant chest symptoms he does have a persistent ache his EKG shows normal sinus rhythm with the first degree AV block and no acute ischemic changes. The patient has been heparinized is being treated with sublingual nitros and will be placed on nitroglycerin paste as well as low-dose beta-lisa therapy. The patient has been intolerant to beta-lisa therapy due to sexual dysfunction and a fogginess. The patient denies a history of diabetes he has never smoked he he has a history of hyperlipidemia and hypertension and a positive family history in his dad. Last lipids from July 2023 showed an LDL cholesterol of 64 HDL of 56 total cholesterol 134 and triglycerides were 70. This is on statin therapy. He is tolerating rosuvastatin 5 mg daily. The patient also remains on dual antiplatelet therapy with Plavix and aspirin. His previous heart cath has been done via the radial approach. REPLACED BY [facility] Medical History History of hypertension History of CAD (coronary artery disease) CAD (coronary artery disease) COVID-19 History of coronary artery stent placement (10/08/22) Non-rheumatic mitral regurgitation Pure hypercholesterolemia Essential hypertension Atherosclerotic heart disease of [place] coronary artery without angina pectoris Home Medications ?Medication ?Instructions ?Recorded ?Last Taken ?Type aspirin 81 mg tablet,delayed 81 mg PO DAILY [facility] 01/29/21 03/20/23 History release (Adult Low Dose Aspirin) magnesium oxide 400 mg PO QHS supplement 03/10/22 03/19/23 History clopidogrel 75 mg tablet (Plavix) 75 mg PO QDAY anti platelet #90 08/17/23 Unknown Rx tabs lisinopril 2.5 mg tablet 2.5 mg PO QHS bp #90 tabs 08/17/23 Unknown Rx cholecalciferol (vitamin D3) 100 100 mcg PO DAILY 07/22/24 Unknown History mcg (4,000 unit) tablet rosuvastatin 5 mg tablet 5 mg PO DAILY 08/25/24 Unknown History Allergy/AdvReac Type Severity Reaction Status Date / Time niacin AdvReac Severe Hyperpigmen Verified 08/25/24 14:15 tation Hxnhqyk-FUR-KzN Reductase AdvReac Severe Aches Verified 08/25/24 14:15 Inhibitor (Zwzcpfq-Uer-Pau Reductase Inhibitor) prednisone AdvReac Unknown Fast HR Verified 08/25/24 14:15 Family History Uncle CAD (coronary artery disease) Uncle CAD (coronary artery disease) Mother Cancer Breast CA Diabetes Hyperlipidemia Hypertension Father Emphysema lung Other Heart disease Surgical History History of coronary artery stent placement (03/23/23) Presence of coronary angioplasty implant and graft (~06/12/21) History of herniorrhaphy H/O coronary artery bypass surgery (02/27/21) History of left heart catheterization (LHC) (02/21/21) History of umbilical hernia repair Social History household members: spouse Smoking Status: Never smoker alcohol intake: never substance use type: does not use caffeine: Yes Type: coffee ROS Constitutional Constitutional: Reports as per HPI Eyes Eyes: Reports systems reviewed and no addt'l complaints, except as documented ENT HEENT: Reports systems reviewed and no addt'l complaints, except as documented Cardiovascular Cardiovascular: Reports as per HPI Respiratory/Chest Respiratory/Chest: Reports as per HPI Gastrointestinal Gastrointestinal: Reports systems reviewed and no addt'l complaints, except as documented Genitourinary Genitourinary: Reports systems reviewed and no addt'l complaints, except as documented Musculoskeletal Musculoskeletal: Reports systems reviewed and no addt'l complaints, except as documented Integumentary Integumentary: Reports systems reviewed and no addt'l complaints, except as documented Neurologic Neurologic: Reports systems reviewed and no addt'l complaints, except as documented Psychiatric Psychiatric: Reports systems reviewed and no addt'l complaints, except as documented Endocrine Endocrinology: Reports as per HPI Hematologic/Lymphatic Hematologic/Lymphatic: Reports systems reviewed and no addt'l complaints, except as documented Allergic/Immunologic Allergic/Immunologic: Reports systems reviewed and no addt'l complaints, except as documented Physical Exam Const alert and oriented x3 HEENT normocephalic Eyes EOMs intact bilaterally Neck no JVD and no carotid bruits Resp normal respiratory effort and clear to auscultation bilaterally Cardio Rate: regular rate Rhythm: regular rhythm Heart Sounds: S1 normal and S2 normal; Negative for click, gallop or murmur Peripheral Pulses: pulses 2+ throughout GI normal to inspection, nondistended, normoactive bowel sounds and no bruits Extremity no pedal edema Skin no rashes or lesions noted Neuro Neuro Narrative: Alert and oriented x 3 Psych mental status grossly normal Risk Stratification Risk Stratification Applicable: Yes Age >/= 65: Yes >/= 3 CAD Risk Factors (HTN, HLD, DM, family hx of CAD, or current smoker): Yes Aspirin Use in the Past 7 Days: Yes Severe Angina (>/= episodes in 24 hours): Yes EKG ST Changes >/= 0.5mm: No Positive Cardiac Marker: Yes DAVID Risk Stratification Score: 5 DAVID % Risk: 25% Risk Charges/Coding Visit Charges Inpatient E&M: 15765 Init Hosp L3 Objective Data Vital Signs: Vital Signs Temp Pulse Resp BP Pulse Ox O2 Del Method 98.0 F 74 18 145/91 H 96 Room Air 08/25/24 15:35 08/25/24 16:00 08/25/24 16:00 08/25/24 16:00 08/25/24 16:00 08/25/24 16:00 Oxygen Delivery Method Room Air Weight: 210 lb 1.608 oz Body Mass Index (BMI) 32.9 Lab / Micro Data Attestation: I reviewed the patient's lab results. 08/25/24 14:14 08/25/24 14:14 Labs: Laboratory Results - last 24 hr 08/25/24 14:14: WBC 7.3, RBC 4.67, Hgb 14.1, Hct 43.8, MCV 93.8, MCH 30.2, MCHC 32.2, RDW Std Deviation 44.4 H, RDW Coeff of [place] 12.9, Plt Count 170, MPV 9.8, Immature Gran % (Auto) 0.300, Neut % (Auto) 66.5, Lymph % (Auto) 20.4, [place] % (Auto) 10.5 H, Eos % (Auto) 1.8, Baso % (Auto) 0.5, Absolute Neuts (auto) 4.9, Absolute Lymphs (auto) 1.49, Nucleated RBC % 0, PT 14.4, INR 1.1, APTT 28.0, D-Dimer Quant (PE/DVT) 0.69 H*, Sodium 139, Potassium 3.7, Chloride 107, Carbon Dioxide 25.0, Anion Gap 7, BUN 19 H, Creatinine 1.20, Estim Creat Clear Calc 65.72, Est GFR (MDRD) Af Amer 78, Est GFR (MDRD) Non-Af 64, BUN/Creatinine Ratio 15.8, Glucose 131 H, Calcium 9.3, Troponin I High Sens 524 H*, B-Natriuretic Peptide 45.7 Rhythm Strip Rhythm Strip: Sinus Rhythm Rate: 77 Ectopy: None Cardiology Labs/Tests 08/25/24 14:14: WBC 7.3, RBC 4.67, Hgb 14.1, Hct 43.8, MCV 93.8, MCH 30.2, MCHC 32.2, Plt Count 170, MPV 9.8, Immature Gran % (Auto) 0.300, Neut % (Auto) 66.5, Lymph % (Auto) 20.4, [place] % (Auto) 10.5 H, Eos % (Auto) 1.8, Baso % (Auto) 0.5, Absolute Neuts (auto) 4.9, Nucleated RBC % 0, PT 14.4, INR 1.1, APTT 28.0, D-Dimer Quant (PE/DVT) 0.69 H*, Sodium 139, Potassium 3.7, Chloride 107, Carbon Dioxide 25.0, Anion Gap 7, BUN 19 H, Creatinine 1.20, Est GFR (MDRD) Af Amer 78, Est GFR (MDRD) Non-Af 64, BUN/Creatinine Ratio 15.8, Glucose 131 H, Calcium 9.3, B-Natriuretic Peptide 45.7 Rhythm: EKG: ECHO: Stress Test: Cardiac Cath: PCI: CT Surgery: Holter monitor: EPS: PPM: CXR: Chest CT Scan: Radiography Diagnostic Testing: Radiology Impression Chest X-Ray 08/25/24 14:25 IMPRESSION: Stable chest with no acute or active cardiopulmonary disease. Electronically Signed: Robert Joaquin MD at 14:35 EDT , EKG Initial EKG: Attestation: I personally reviewed and interpreted this EKG as follows: (Normal sinus rhythm first-degree AV block minor nonspecific T wave changes.)
--- NOTE | 2024-08-25 16:27 | PCM.HP.STD ---
HPI - General General Date of Admission: 08/25/24 Date of Service: 08/25/24 Chief Complaint: Chest pain HPI Narrative SERGIO JOSEPH, is a 69 M with history of coronary artery disease with 10 stents and CABG who presented [facility] ED 08/25/2024 with chest pain. Patient found to have troponin of 524 and cardiology contacted, patient started on heparin drip, hospitalist contacted for admission. Patient evaluated bedside. Patient had some viral symptoms about 5 weeks ago but had been improving, [place] had some exertional chest pain while hiking that ultimately resolved, today patient was shoveling and developed some substernal chest pain and felt hot, stopped shoveling and symptoms resolved but he needed to finish doubling per patient so he started again and the symptoms repeated causing him to come to the ED. Has had a little bit of dull chest aching since that time but overall is beginning to feel better, has not been having any shortness of breath per se and had some nausea earlier and a feeling of being hot but ROS otherwise negative. [facility] Medical History History of hypertension History of CAD (coronary artery disease) CAD (coronary artery disease) COVID-19 History of coronary artery stent placement (10/08/22) Non-rheumatic mitral regurgitation Pure hypercholesterolemia Essential hypertension Atherosclerotic heart disease of [place] coronary artery without angina pectoris Home Medications ?Medication ?Instructions ?Recorded ?Last Taken ?Type aspirin 81 mg tablet,delayed 81 mg PO DAILY heart [facility] 01/29/21 03/20/23 History release (Adult Low Dose Aspirin) magnesium oxide 400 mg PO QHS supplement 03/10/22 03/19/23 History clopidogrel 75 mg tablet (Plavix) 75 mg PO QDAY anti platelet #90 08/17/23 Unknown Rx tabs lisinopril 2.5 mg tablet 2.5 mg PO QHS bp #90 tabs 08/17/23 Unknown Rx cholecalciferol (vitamin D3) 100 100 mcg PO DAILY 07/22/24 Unknown History mcg (4,000 unit) tablet rosuvastatin 5 mg tablet 5 mg PO DAILY 08/25/24 Unknown History Allergy/AdvReac Type Severity Reaction Status Date / Time niacin AdvReac Severe Hyperpigmen Verified 08/25/24 14:15 tation Euxiqph-BUC-KmY Reductase AdvReac Severe Aches Verified 08/25/24 14:15 Inhibitor (Qsoaqef-Qxx-Ucu Reductase Inhibitor) prednisone AdvReac Unknown Fast HR Verified 08/25/24 14:15 Family History Uncle CAD (coronary artery disease) Uncle CAD (coronary artery disease) Mother Cancer Breast CA Diabetes Hyperlipidemia Hypertension Father Emphysema lung Other Heart disease Surgical History History of coronary artery stent placement (03/23/23) Presence of coronary angioplasty implant and graft (~06/12/21) History of herniorrhaphy H/O coronary artery bypass surgery (02/27/21) History of left heart catheterization (LHC) (02/21/21) History of umbilical hernia repair Social History household members: spouse Smoking Status: Never smoker alcohol intake: never substance use type: does not use caffeine: Yes Type: coffee ROS ROS Narrative General: Denies fever/chills HENT: Denies headache, denies stuffy nose, denies sore throat EYES: Denies changes in vision Resp: Denies cough, denies shortness of breath, feels an odd feeling when he takes a big deep breath however Cardiac: Some substernal chest discomfort improving GI: Denies abdominal pain, denies changes in bowel, did have some nausea earlier which is improving : Denies changes in urination Extremity: Denies swelling MSK: Denies weakness Neuro: Denies any numbness/tingling Heme: Denies any bleeding or bruising Skin: Denies rashes Psychiatric: No complaints voiced Vital Signs Vital Signs Vital Signs: 08/25/24 14:12 08/25/24 14:15 08/25/24 14:19 Temperature 98.4 F Temperature Source Oral Pulse Rate 103 H Respiratory Rate 17 Respiratory Effort Normal Non-Labored Blood Pressure 144/88 H Blood Pressure Mean 106 Pulse Ox 98 95 Oxygen Delivery Method Room Air Room Air 08/25/24 15:12 08/25/24 15:35 08/25/24 16:00 Temperature 98.0 F Temperature Source Pulse Rate 77 76 74 Respiratory Rate 16 16 18 Respiratory Effort Blood Pressure 121/81 H 121/81 H 145/91 H Blood Pressure Mean 94 94 109 Pulse Ox 95 98 96 Oxygen Delivery Method Room Air Room Air Weight Weight: 95.3 kg Body Mass Index (BMI) 32.9 Physical Exam Narrative General: Alert, oriented, no apparent distress HEENT: Atraumatic, normocephalic Eyes: Anicteric, normal conjunctiva, extraocular movements grossly intact Neck: Supple Respiratory: Clear to auscultation bilaterally, normal respiratory effort Cardiovascular: Regular rate and rhythm GI: Soft, nontender, nondistended Extremities: No edema Musculoskeletal: Moving all extremities Neuro: No overt focal neurological deficits Skin: No rashes appreciated Psych: Cooperative Results Lab / Micro Data 08/25/24 14:14 08/25/24 14:14 Labs: Laboratory Results - last 24 hr 08/25/24 14:14: WBC 7.3, RBC 4.67, Hgb 14.1, Hct 43.8, MCV 93.8, MCH 30.2, MCHC 32.2, RDW Std Deviation 44.4 H, RDW Coeff of Adrian 12.9, Plt Count 170, MPV 9.8, Immature Gran % (Auto) 0.300, Neut % (Auto) 66.5, Lymph % (Auto) 20.4, [place] % (Auto) 10.5 H, Eos % (Auto) 1.8, Baso % (Auto) 0.5, Absolute Neuts (auto) 4.9, Absolute Lymphs (auto) 1.49, Nucleated RBC % 0, PT 14.4, INR 1.1, APTT 28.0, D-Dimer Quant (PE/DVT) 0.69 H*, Sodium 139, Potassium 3.7, Chloride 107, Carbon Dioxide 25.0, Anion Gap 7, BUN 19 H, Creatinine 1.20, Estim Creat Clear Calc 65.72, Est GFR (MDRD) Af Amer 78, Est GFR (MDRD) Non-Af 64, BUN/Creatinine Ratio 15.8, Glucose 131 H, Calcium 9.3, Troponin I High Sens 524 H*, B-Natriuretic Peptide 45.7 Rhythm Strip Rhythm Strip: Sinus Rhythm Rate: 98 Ectopy: None Imaging Radiology Impression Chest X-Ray 08/25/24 14:25 IMPRESSION: Stable chest with no acute or active cardiopulmonary disease. Electronically Signed: Robert Joaquin MD at 14:35 EDT Reading Location ID and State: [address] [place] [address] , Service support , Assessment & Plan Assessment/Plan (1) Chest pain: PLAN: Plan # NSTEMI, suspect type I -Patient with substernal chest pain on exertion improved with rest -Admit to telemetry -In the ED vitally stable but found to have a troponin of 524, repeat troponin ordered -Cardiology contacted and evaluated -Patient on heparin drip -Discussed with system consultant and it was advised to admit with likely heart cath tomorrow, also order Nitropaste, metoprolol 25 mg twice daily and n.p.o. at midnight -Continue patient's other home medications -Echocardiogram -A.m. lipid panel # History of coronary artery disease -With multiple stents and CABG -On aspirin, clopidogrel, statin at home -Patient has not tolerated high-dose statins before due to myalgias so we will continue current home equivalent #DVT ppx: On heparin drip Anum Dove MD Time spent in the patient's overall evaluation,decision-making process, review of diagnostic data, adjustment of management, discussion with other providers, nursing nursing and ancillary staff involved in patient's care documentation, 55 Minutes Charges/Coding Visit Charges Inpatient E&M: 20163 Init Hosp L2
[2024-08-25 16:31] LABS: Reflex Troponin-HS? (from REC) Y
--- NOTE | 2024-08-25 16:42 | CASEMGMT ---
Care Management Face to Face with patient for initial transition planning/care coordination assessment.? This film writer introduced self and role at [facility]. Patient sitting up in bed, alert and oriented. was at bedside and participated in assessment with patient consent.? Patient willing to participate in assessment and is able to answer all questions appropriately.? Care providers, pharmacy, and demographics verified. Admitting Diagnosis: Chest pain Other diagnosis history: History of hypertension History of CAD (coronary artery disease) CAD (coronary artery disease) COVID-19 History of coronary artery stent placement (10/08/22) Non-rheumatic mitral regurgitation Pure hypercholesterolemia Essential hypertension Atherosclerotic heart disease of [place] coronary artery without angina pectoris PCP: ?ALYSA Donovan Specialists: Dr. Read, Assistant Site Manager Preferred Pharmacy: [facility] in [place] Insurance: Medicare A and B, [place] Prescription Benefit:? Part D plan thru Medicare Living Will/HPOA: ?Does not have any advanced directives done at this time, offered to help complete same, patient stated that would just like information at this time. LNOK: Living Arrangements: Lives in a house with , 2 stairs to get in, one level other than basement Transportation: Has drivers license and vehicle, no concerns with transportation DME/HHC: Has a lift chair, CPAP, pulse ox, does not have oxygen.? Would prefer [facility] should DME be needed.? No home health preferences. Patient goals: Patient wishes to discharge home. Patient states he has no further needs or concerns at this time. CM to follow for discharge planning needs that may arise. Disposition Plan: Patient plans to discharge home.? Care management to follow up for any additional discharge planning. Cierra Ruggiero, DIRECTOR OF DIVERSITY AND INCLUSION, [employer]
[2024-08-25 17:19] LABS: Troponin-I HS 1195 pg/mL (3.0-78.0)
--- NOTE | 2024-08-25 17:23 | CM.ED ---
Information provided to patient and regarding Health Care Power of Crew Clerk, Living Will and the Advanced Care Planning You Have a Choice booklet. Educated should they wish to fill out paperwork, that they could ask nurse to speak to Tubing Tester and they would be able to assist. Cierra Ruggiero, LIABILITY CLAIMS ADJUSTER, BRANCH EXAMINER
--- NOTE | 2024-08-25 17:32 | ECHOCS_ITS ---
Reason For Study: CHEST PAIN Procedure This was a 2D Doppler, Color Flow transthoracic echocardiogram. Patient was scanned in supine position during reflux assessment. The study was technically difficult. Contrast injection was performed. Exam performed portable in patient room. Left Ventricle Moderate assymetric septal hypertrophy. Normal LV size. The estimated ejection fraction is 50-55 %. Normal diastololic function. Mid-inferoseptal : Mildly hypokinetic. Basal inferoseptal: Mildly hypokinetic. Right Ventricle Normal RV size. Normal systolic function. Atria Normal left atrium. Normal right atrium. Mitral Valve The mitral valve is structurally normal. No prolapse or stenosis seen. Mild (1+) mitral valve insufficiency. Tricuspid Valve Normal tricuspid valve. Trivial tricuspid valve insufficiency. Unable to estimate RV systolic pressure due to insufficient tricuspid regurgitant envelope. Aortic Valve Trisinus/trileaflet aortic valve. Mild focal aortic valve calcification. There is no aortic stenosis. Mild (1+) aortic valve insufficiency. Pulmonic Valve Normal pulmonic valve. Trivial pulmonic valve insufficiency. Great Vessels Normal aortic root. Pericardium/Pleural No pericardial effusion. Medication Diluted definity 2ml given slow IV push to enhance endocardial definition. MMode/2D Measurements & Calculations LVIDd: 4.0 cm IVSd: 1.6 cm LVOT diam: 2.0 cm LVIDs: 2.8 cm LVPWd: 1.1 cm RVDd: 3.5 cm FS: 29.7 % LVOT area: 3.2 cm2 asc Aorta Diam: 3.8 cm LAV(MOD-bp): 39.3 ml LVAd ap4: 34.5 cm2 LAV(MOD-bp) Indexed: 19.1 ml/m2 LVLd ap4: 8.4 cm LAV(MOD-sp2): 36.2 ml EDV(MOD-sp4): 120.1 ml LAV(MOD-sp4): 38.7 ml EDV(sp4-el): 120.7 ml LVAs ap4: 22.5 cm2 LVLs ap4: 7.6 cm ESV(MOD-sp4): 55.6 ml ESV(sp4-el): 56.5 ml EF(MOD-sp4): 53.7 % EF(sp4-el): 53.2 % LVAd ap2: 37.0 cm2 SV(MOD-sp4): 64.5 ml SV(MOD-sp2): 72.8 ml LVLd ap2: 8.8 cm EDV(MOD-sp2): 126.7 ml EDV(sp2-el): 132.8 ml LVAs ap2: 22.1 cm2 LVLs ap2: 7.6 cm ESV(MOD-sp2): 53.9 ml ESV(sp2-el): 54.6 ml EF(MOD-sp2): 57.5 % SV(sp4-el): 64.2 ml Ao sinus diam: 3.[address] Junction: 2.7 cm LA dimension(2D): 3.8 cm LA A4 area: 15.2 cm2 RA A4 area: 9.5 cm2 TAPSE: 1.3 cm Time Measurements MV dec time: 0.21 sec Doppler Measurements & Calculations MV E max aman: 57.0 cm/sec Lat Peak E' Aman: 9.2 cm/sec Med Peak E' Aman: 7.5 cm/sec MV A max aman: 53.0 cm/sec E/E' lat: 6.2 E/E' med: 7.6 MV E/A: 1.1 MV dec slope: 276.2 cm/sec2 Ao V2 max: 147.0 cm/sec LV V1 max: 105.5 cm/sec Ao max P.6 mmHg LV V1 max P.4 mmHg Ao V2 mean: 101.1 cm/sec LV V1 mean P.4 mmHg Ao mean P.6 mmHg LV V1 mean: 71.5 cm/sec Ao V2 VTI: 29.7 cm LV V1 VTI: 22.2 cm AV (velocity ratio): 0.75 DILAN(I,D): 2.4 cm2 DILAN(V,D): 2.3 cm2 SV(LVOT): 71.1 ml PA V2 max: 90.1 cm/sec PA max PG (full): 1.7 mmHg ECHO/Echo Complete W/ Contrast Interpretation Summary The estimated ejection fraction is 50-55 %. Moderate assymetric septal hypertrophy. Mild (1+) mitral valve insufficiency. Mild focal aortic valve calcification. Mild (1+) aortic valve insufficiency. The study was technically difficult. Contrast injection was performed. Ordering Physician: Anum Dove Referring Physician: Rocio Jimenez Performed By: Luz Elena Olvera RDCS
--- NOTE | 2024-08-25 17:32 | EKG12_ITS ---
Test Reason : CP ADMIT Blood Pressure : / mmHG Vent. Rate : 069 BPM Atrial Rate : 069 BPM P-R Int : 238 ms QRS Dur : 102 ms QT Int : 418 ms P-R-T Axes : 049 -25 030 degrees QTc Int : 447 ms Sinus rhythm with 1st degree A-V block Otherwise normal ECG When compared with ECG of 25-AUG-2024 14:01, No significant change was found Confirmed by ASIA LONG, NATHALY ([id number]), publications editor LORRIE CAMPBELL ([id number]) on 08/30/2024 6:46:16 AM Referred By: Rocio Jimenez Confirmed By:NATHALY BETANCOURT MD
[2024-08-25] MEDS: Nitroglycerin Oint 1 INCH PACKET 0.5 INCH TD (18:00)
[2024-08-25 22:15] LABS: Partial Thromboplast Time 74.9 Seconds (24.1-36.2)
--- NOTE | 2024-08-25 23:40 | CPS ---
Patient placed on autoPAP for the night. Settings are according to patients home PAP settings.
[2024-08-26] VITALS (14 sets, daily range): BP systolic 103–141; BP diastolic 71–93; PULSE 54–93; RESP 16–18; TEMP 36.1–36.8; O2SAT 93–98
[2024-08-26] MEDS: Nitroglycerin Oint 1 INCH PACKET 0.5 INCH TD ×5 (00:01→23:35)
[2024-08-26 05:04] LABS: Absolute Lymphocyte Count 2.02 X10^3/uL (0.83-4.51); Absolute Neutrophil Count 2.2 X10^3/uL (2.0-7.7); Basophil# 0.04 X10^3/uL; Basophil% 0.7 % (0-1); Eosinophil# 0.27 X10^3/uL; Hematocrit 41.2 % (40-54); Hemoglobin 13.6 g/dL (13.0-16.5); Lymphocyte # 2.02 X10^3/ul (0.83-4.51); Lymphocyte % 37.6 % (19-41); Mean Corpuscular Hgb 30.6 pg (27.0-32.0); Mean Corpuscular Volume 92.8 fL (80-94); Mean Platelet Vol. 9.6 fl (6.2-12.0); Monocyte% 14.9 % (0-10); NRBC Flagged by Analyzer 0 % (0-5); Neutrophil # 2.22 X10^3/uL (2.7-7.7); Neutrophil % 41.4 % (47-70); Platelet Count 165 K/mm3 (150-450); RBC Distribution Width CV 12.9 % (11.6-14.6); RBC Distribution Width SD 43.9 fl (35.1-43.9); Red Blood Count 4.44 M/mm3 (4.6-6.2); White Blood Count 5.4 K/mm3 (4.4-11.0)
[2024-08-26 05:11] LABS: Partial Thromboplast Time 66.2 Seconds (24.1-36.2)
[2024-08-26 05:33] LABS: Anion Gap 5 (5-15); BUN 16 mg/dL (7-18); BUN/Creat Ratio 17.9 RATIO (10-20); Chloride 107 mmol/L (98-107); Cholesterol 154 mg/dL (200); Creatinine, Serum 0.89 mg/dL (0.70-1.30); EST Glomerular Filtration Rate 90 mL/min (>60); Est Glom Filt Rate - Afr Amer 109 mL/min (>60); Estimated Creatinine Clearance 86.53 ml/min; Glucose 107 mg/dL (74-106); High Density Lipoprotein 63 mg/dL; Potassium 3.6 mmol/L (3.5-5.1); Sodium Level 138 mmol/L (136-145); Triglycerides 45 mg/dL; Very Low Density Lipoprotein 9 mg/dL (5-40)
[2024-08-26 05:48] LABS: International Normalized Ratio 1.1; Prothrombin Time (Protime)PT. 14.3 SECONDS (11.7-14.9)
--- NOTE | 2024-08-26 05:55 | EKG12_ITS ---
Test Reason : AM EKG Blood Pressure : / mmHG Vent. Rate : 060 BPM Atrial Rate : 060 BPM P-R Int : 240 ms QRS Dur : 098 ms QT Int : 472 ms P-R-T Axes : 039 -22 041 degrees QTc Int : 472 ms Sinus rhythm with 1st degree A-V block Inferior infarct , age undetermined Abnormal ECG When compared with ECG of 25-AUG-2024 17:51, MANUAL COMPARISON REQUIRED, DATA IS UNCONFIRMED Confirmed by ASIA LONG, NATHALY ([id number]), editorial director LORRIE CAMPBELL ([id number]) on 08/30/2024 6:46:05 AM Referred By: Rocio Jimenez Confirmed By:NATHALY BETANCOURT MD
[2024-08-26] MEDS: Rosuvastatin Calcium 5 MG Tablet PO (06:34)
[2024-08-26] MEDS: Clopidogrel Bisulfate 75 MG Tablet PO (06:35)
[2024-08-26] MEDS: Aspirin E.C. 81 MG Tablet PO (06:35)
--- NOTE | 2024-08-26 08:04 | PN.HOSP_ITS ---
Reason for Visit Reason for Visit: Diagnoses Pure hypercholesterolemia, unspecified (08/25/24) Essential (primary) hypertension (08/25/24) Non-ST elevation (NSTEMI) myocardial infarction (08/25/24) Chest pain, unspecified (08/25/24) Presence of aortocoronary bypass graft (08/25/24) Subjective Subjective Feels well. No further chest pain. Objective Data Objective Data Vital Signs: Vital Signs Temp Pulse Resp BP Pulse Ox O2 Del Method 36.1 C L 58 L 16 109/75 95 Room Air 08/26/24 06:28 08/26/24 06:28 08/26/24 06:28 08/26/24 06:28 08/26/24 06:28 08/26/24 06:28 Oxygen Delivery Method Room Air Weight: 94.2 kg Body Mass Index (BMI) 32.5 Intake & Output: Intake and Output for Last 24 Hours 08/24/24 08/25/24 08/26/24 23:59 23:59 23:59 Intake Total 67.5 / 67.5 78.6 / 78.6 Balance 67.5 / 67.5 78.6 / 78.6 Lab / Micro Data 08/26/24 04:28 08/26/24 04:28 Labs: Laboratory Results - last 24 hr 08/25/24 14:14: WBC 7.3, RBC 4.67, Hgb 14.1, Hct 43.8, MCV 93.8, MCH 30.2, MCHC 32.2, RDW Std Deviation 44.4 H, RDW Coeff of Adrian 12.9, Plt Count 170, MPV 9.8, Immature Gran % (Auto) 0.300, Neut % (Auto) 66.5, Lymph % (Auto) 20.4, [place] % (Auto) 10.5 H, Eos % (Auto) 1.8, Baso % (Auto) 0.5, Absolute Neuts (auto) 4.9, Absolute Lymphs (auto) 1.49, Nucleated RBC % 0, PT 14.4, INR 1.1, APTT 28.0, D- Dimer Quant (PE/DVT) 0.69 H*, Sodium 139, Potassium 3.7, Chloride 107, Carbon Dioxide 25.0, Anion Gap 7, BUN 19 H, Creatinine 1.20, Estim Creat Clear Calc 65.72, Est GFR (MDRD) Af Amer 78, Est GFR (MDRD) Non-Af 64, BUN/Creatinine Ratio 15.8, Glucose 131 H, Calcium 9.3, Troponin I High Sens 524 H*, B-Natriuretic Peptide 45.7 08/25/24 16:31: Troponin I High Sens 1195 H* 08/25/24 21:52: APTT 74.9 H 08/26/24 04:28: WBC 5.4, RBC 4.44 L, Hgb 13.6, Hct 41.2, MCV 92.8, MCH 30.6, MCHC 33.0, RDW Std Deviation 43.9, RDW Coeff of Adrian 12.9, Plt Count 165, MPV 9.6, Immature Gran % (Auto) 0.400, Neut % (Auto) 41.4 L, Lymph % (Auto) 37.6, M kendy % (Auto) 14.9 H, Eos % (Auto) 5.0, Baso % (Auto) 0.7, Absolute Neuts (auto) 2.2, Absolute Lymphs (auto) 2.02, Nucleated RBC % 0, PT 14.3, INR 1.1, APTT 66.2 H, Sodium 138, Potassium 3.6, Chloride 107, Carbon Dioxide 26.0, Anion Gap 5, BUN 16, Creatinine 0.89, Estim Creat Clear Calc 86.53, Est GFR (MDRD) Af Amer 109, Est GFR (MDRD) Non-Af 90, BUN/Creatinine Ratio 17.9, Glucose 107 H, Calcium 9.0, Triglycerides 45, Cholesterol 154, LDL Cholesterol 82, VLDL Cholesterol 9, HDL Cholesterol 63 Radiography Diagnostic Testing: Radiology Impression Chest X-Ray 08/25/24 14:25 IMPRESSION: Stable chest with no acute or active cardiopulmonary disease. Electronically Signed: Robert Joaquin MD at 14:35 EDT , Rhythm Strip Rhythm Strip: Sinus Rhythm Rate: 77 Ectopy: None Physical Exam Const alert and no apparent distress HEENT head/scalp atraumatic and moist oral mucous membranes Resp normal respiratory effort, no retractions, no use of accessory muscles and clear to auscultation bilaterally Cardio regular rate, regular rhythm, S1 normal heart sound and S2 normal heart sound GI normal to inspection, nondistended, normoactive bowel sounds, soft to palpation, non-tender and non-distended Extremity normal to inspection and full ROM Assessment & Plan Assessment/Plan (1) Chest pain: PLAN: Plan NSTEMI, suspect type I * troponins up to 1195 * Left heart catheterization showed patent 70 venous graft to the RCA and occluded sidebranch of the obtuse marginal with a jump graft. Sycuan left circumflex has a high-grade in-stent restenosis distally and moderate disease more proximally. Cardiology recommending aggressive medical care at this time. * continue ASA, clopidogrel. Nitropaste added well as low-dose rosuvastatin. * Echo: Shows an EF of 50 to 55%. Moderate asymmetric septal hypertrophy. VTE prophylaxis: add SCDs. Disposition: Will monitor the patient overnight and if no events anticipate discharge on the . Charges/Coding Visit Charges Inpatient E&M: 86168 Subs Hosp L2
--- NOTE | 2024-08-26 08:55 | CL.D_ITS ---
Patient Name: SERGIO JOSEPH Study Date: 08/26/2024 Performing: Ritesh Read MD Ht: 67 inches 170.18 cm : 1955 Wt: 207.9 lbs 94.2 kg Age: 69 Gender: male BSA: 2.05 PROCEDURE(S) PERFORMED [id number])LHC/COR/CABG CLINICAL PROFILE AND INDICATIONS Indications: Suspected CAD Heart Failure: None Stress/Imaging Stress/Image Study Performed: No CONCLUSIONS Presumed patent GOMEZ to the LAD and patent saphenous vein graft to the right coronary artery and occluded sidebranch of the obtuse marginal branch with a lower brule circumflex artery with high-grade in-stent stenosis distally and moderate disease proximally. RECOMMENDATIONS Recommend aggressive medical therapy for now DESCRIPTION OF PROCEDURE The patient arrived to the procedure lab. The risks and benefits of the procedure as well as a full description of our services here and current unavailability of surgical backup were fully explained to the patient and/or their significant other prior to the catheterization. The Timeout was completed, verifying the correct patient and procedure. The patient's procedural site was prepped and draped in the usual fashion. Local anesthetic was given subcutaneously to right groin region with Lidocaine 2%. Using a modified Seldinger technique, arterial access was obtained via the right femoral artery, a 5Fr sheath was inserted. Left Coronary Artery selective angiography was performed in multiple views using a 5 Fr. JL4 catheter. Right Coronary Artery selective angiography was then performed in multiple views using a 5 Fr. 3DRC (Ángel) catheter. Saphenous Vein graft to the OM 1 and PDA selective angiography was performed in multiple views using a 5 Fr. AR MOD catheter.Contrast was injected through the sheath and the Right Iliac and Femoral artery were assessed for possible closure device.The arterial sheath was pulled and a Mynx closure device was deployed for hemostasis CORONARY ANGIOGRAPHY DOMINANCE: Right Dominant LEFT HEART ASSESSMENT Left Ventricular Ejection Fraction: Not assessed LV wall motion not assessed LEFT MAIN: Mild calcification, No significant disease noted LEFT ANTERIOR DESCENDING ARTERY: MID LAD: is occluded CIRCUMFLEX ARTERY: Nondominant vessel previously stented with a proximal area of in-stent stenosis approximately 60%. The vessel then continues as an obtuse marginal which seminary trifurcates. This vessel has been previously stented and there is an area of in-stent stenosis of approximately 90% of the trifurcation involving the ostium of the branch obtuse marginal vessel. RIGHT CORONARY ARTERY: Previously stented vessel and subtotally occluded GRAFTS: Saphenous Vein graft to the RPDA This vessel was a sequential graft to a side branch obtuse marginal and then to the posterior descending artery and is noted to be patent with good antegrade flow of the right coronary artery. The posterior descending artery is free of significant disease. GOMEZ graft to the Mid LAD This vessel was not imaged at this time but is presumed to be patent as it was imaged a year ago. COMPLICATIONS No Complications PROCEDURE MEDICATIONS Versed 1 mg IV Fentanyl 50 mcg IV Oxygen: 2 L/min via nasal cannula SUMMARY OF HEMODYNAMIC DATA Time AIR REST ECG 07:58:01 AO 126/77 (98) SA 08:14:43 Signed By Ritesh Read MD On 08/26/2024 08:54:05 Ritesh Read MD
[2024-08-26 10:59] LABS: Partial Thromboplast Time 28.9 Seconds (24.1-36.2)
[2024-08-26] MEDS: 0.9% Normal Saline (1000mL) 1,000 ML 15 ML IV (11:01)
--- NOTE | 2024-08-26 12:12 | PCM.PN.CARD ---
Subjective Subjective This patient seen today at bedside along with the nursing staff Comfortable he had cardiac catheterization today by Dr. Read symptoms of chest pain resolved at rest Objective Data Vital Signs: Vital Signs Temp Pulse Resp BP Pulse Ox O2 Del Method O2 Flow Rate 98.0 F 55 L 16 118/75 97 Room Air 2 08/26/24 10:25 08/26/24 10:25 08/26/24 10:25 08/26/24 10:25 08/26/24 09:55 08/26/24 10:25 08/26/24 08:40 Oxygen Flow Rate (L/min) 2 Oxygen Delivery Method Room Air Weight: 207 lb 10.807 oz Body Mass Index (BMI) 32.5 Intake & Output: Intake and Output for Last 24 Hours 08/24/24 08/25/24 08/26/24 23:59 23:59 23:59 Intake Total 67.5 / 67.5 1078.6 / 1078.6 Balance 67.5 / 67.5 1078.6 / 1078.6 Lab / Micro Data 08/26/24 04:28 08/26/24 04:28 Labs: Laboratory Results - last 24 hr 08/25/24 14:14: WBC 7.3, RBC 4.67, Hgb 14.1, Hct 43.8, MCV 93.8, MCH 30.2, MCHC 32.2, RDW Std Deviation 44.4 H, RDW Coeff of Adrian 12.9, Plt Count 170, MPV 9.8, Immature Gran % (Auto) 0.300, Neut % (Auto) 66.5, Lymph % (Auto) 20.4, Morgan % (Auto) 10.5 H, Eos % (Auto) 1.8, Baso % (Auto) 0.5, Absolute Neuts (auto) 4.9, Absolute Lymphs (auto) 1.49, Nucleated RBC % 0, PT 14.4, INR 1.1, APTT 28.0, D-Dimer Quant (PE/DVT) 0.69 H*, Sodium 139, Potassium 3.7, Chloride 107, Carbon Dioxide 25.0, Anion Gap 7, BUN 19 H, Creatinine 1.20, Estim Creat Clear Calc 65.72, Est GFR (MDRD) Af Amer 78, Est GFR (MDRD) Non-Af 64, BUN/Creatinine Ratio 15.8, Glucose 131 H, Calcium 9.3, Troponin I High Sens 524 H*, B-Natriuretic Peptide 45.7 08/25/24 16:31: Troponin I High Sens 1195 H* 08/25/24 21:52: APTT 74.9 H 08/26/24 04:28: WBC 5.4, RBC 4.44 L, Hgb 13.6, Hct 41.2, MCV 92.8, MCH 30.6, MCHC 33.0, RDW Std Deviation 43.9, RDW Coeff of Adrian 12.9, Plt Count 165, MPV 9.6, Immature Gran % (Auto) 0.400, Neut % (Auto) 41.4 L, Lymph % (Auto) 37.6, Morgan % (Auto) 14.9 H, Eos % (Auto) 5.0, Baso % (Auto) 0.7, Absolute Neuts (auto) 2.2, Absolute Lymphs (auto) 2.02, Nucleated RBC % 0, PT 14.3, INR 1.1, APTT 66.2 H, Sodium 138, Potassium 3.6, Chloride 107, Carbon Dioxide 26.0, Anion Gap 5, BUN 16, Creatinine 0.89, Estim Creat Clear Calc 86.53, Est GFR (MDRD) Af Amer 109, Est GFR (MDRD) Non-Af 90, BUN/Creatinine Ratio 17.9, Glucose 107 H, Calcium 9.0, Triglycerides 45, Cholesterol 154, LDL Cholesterol 82, VLDL Cholesterol 9, HDL Cholesterol 63 08/26/24 10:14: APTT 28.9 Rhythm Strip Rhythm Strip: Sinus Rhythm Rate: 77 Ectopy: None Cardiology Labs/Tests 08/25/24 14:14: WBC 7.3, RBC 4.67, Hgb 14.1, Hct 43.8, MCV 93.8, MCH 30.2, MCHC 32.2, Plt Count 170, MPV 9.8, Immature Gran % (Auto) 0.300, Neut % (Auto) 66.5, Lymph % (Auto) 20.4, Morgan % (Auto) 10.5 H, Eos % (Auto) 1.8, Baso % (Auto) 0.5, Absolute Neuts (auto) 4.9, Nucleated RBC % 0, PT 14.4, INR 1.1, APTT 28.0, D-Dimer Quant (PE/DVT) 0.69 H*, Sodium 139, Potassium 3.7, Chloride 107, Carbon Dioxide 25.0, Anion Gap 7, BUN 19 H, Creatinine 1.20, Est GFR (MDRD) Af Amer 78, Est GFR (MDRD) Non-Af 64, BUN/Creatinine Ratio 15.8, Glucose 131 H, Calcium 9.3, B-Natriuretic Peptide 45.7 08/25/24 21:52: APTT 74.9 H 08/26/24 04:28: WBC 5.4, RBC 4.44 L, Hgb 13.6, Hct 41.2, MCV 92.8, MCH 30.6, MCHC 33.0, Plt Count 165, MPV 9.6, Immature Gran % (Auto) 0.400, Neut % (Auto) 41.4 L, Lymph % (Auto) 37.6, Morgan % (Auto) 14.9 H, Eos % (Auto) 5.0, Baso % (Auto) 0.7, Absolute Neuts (auto) 2.2, Nucleated RBC % 0, PT 14.3, INR 1.1, APTT 66.2 H, Sodium 138, Potassium 3.6, Chloride 107, Carbon Dioxide 26.0, Anion Gap 5, BUN 16, Creatinine 0.89, Est GFR (MDRD) Af Amer 109, Est GFR (MDRD) Non-Af 90, BUN/Creatinine Ratio 17.9, Glucose 107 H, Calcium 9.0, Triglycerides 45, Cholesterol 154, LDL Cholesterol 82, VLDL Cholesterol 9, HDL Cholesterol 63 08/26/24 10:14: APTT 28.9 Rhythm: EKG: ECHO: Stress Test: Cardiac Cath: PCI: CT Surgery: Holter monitor: EPS: PPM: CXR: Chest CT Scan: Radiography Diagnostic Testing: Radiology Impression Chest X-Ray 08/25/24 14:25 IMPRESSION: Stable chest with no acute or active cardiopulmonary disease. Electronically Signed: Robert Joaquin MD at 14:35 EDT , Physical Exam Cardio Cardio Narrative: Review of cardiac rhythm is sinus rhythm Cardiovascular exam S1-S2 is regular Chest exam is clear auscultation bilateral. Assessment & Plan Assessment/Plan (1) NSTEMI (non-ST elevated myocardial infarction): (2) Angina of effort: (3) History of coronary artery stent placement: (4) Pure hypercholesterolemia: (5) H/O coronary artery bypass surgery: (6) Non-rheumatic aortic regurgitation: (7) Essential hypertension: PLAN: Plan Cardiac care plan recommendations; 69-year-old patient with severe multivessel CAD Underwent cardiac catheterization today He presented with symptoms of typical angina and chest pain with elevated troponins With a clinical diagnosis of non-ST elevation HI. He had a history of hypertension Hyperlipidemia. Nonrheumatic mitral valve regurgitation Cardiac catheterization finding discussed. Patient has patent SVG graft to RCA and occluded sidebranch of the obtuse marginal which was a jump graft. And the [place] left circumflex have a high-grade in-stent restenosis distally and moderate disease proximally. Overall the cardiac care plan would be aggressive medical therapy. Will continue to monitor and follow-up clinically. With maximal antianginal medication Cameron Mccoy MD,FACC,[facility]
--- NOTE | 2024-08-26 14:13 | CHAPLAIN ---
Type of Pastoral Visit _x__ Initial Visit ___ Follow-up Visit ___ On-call Visit ___ General Patient Visit ___ Spiritual Assessment ___ Family Conference ___ Bereavement ___ Rapid Response ___ Code Blue ___ Other (describe below) Pastoral Care Referral From _x__ Patient ___ Family ___ Nurse ___ Physician ___ Candy Maker ___ Anode Worker ___ Other (describe below) Sacrament/Intervention _x__ Active listening ___ Anointing ___ Moravian ___ Bereavement ___ Communion _x__ Marleny exploration ___ _x__ Life review _x__ Prayer ___ Reconciliation ___ Sacrament of Sick ___ Supportive presence ___ Wedding ___ Other (describe below) Pastoral Comments patient reviews the recent health condition and a bit of the past; pt and spouse speak of the goodness of God and the wonder of new technologies that allow life to continue; presence, conversation, and prayer given
[2024-08-26] MEDS: MENTHOL 226.8 GM JAR 1 APPLIC TOPICAL (18:29)
[2024-08-26] MEDS: 0.9% Saline Lock 10 ML Syringe IV (23:35)
[2024-08-27 03:13] VITALS: BP 123/82; PULSE 67; RESP 18; TEMP 36.1; O2SAT 98
[2024-08-27] MEDS: Nitroglycerin Oint 1 INCH PACKET 0.5 INCH TD (06:05)
[2024-08-27 06:46] VITALS: O2SAT 95
[2024-08-27] MEDS: Aspirin E.C. 81 MG Tablet PO (07:55)
[2024-08-27] MEDS: Clopidogrel Bisulfate 75 MG Tablet PO (07:56)
[2024-08-27] MEDS: Rosuvastatin Calcium 5 MG Tablet PO (07:57)
[2024-08-27 08:00] VITALS: BP 117/79; PULSE 72; RESP 16; TEMP 36.1; O2SAT 97
--- NOTE | 2024-08-27 08:55 | PN.HOSP_ITS ---
Reason for Visit Reason for Visit: Diagnoses Pure hypercholesterolemia, unspecified (08/25/24) Essential (primary) hypertension (08/25/24) Other forms of angina pectoris (08/25/24) Non-ST elevation (NSTEMI) myocardial infarction (08/25/24) Nonrheumatic aortic (valve) insufficiency (08/25/24) Chest pain, unspecified (08/25/24) Presence of aortocoronary bypass graft (08/25/24) Presence of coronary angioplasty implant and graft (08/25/24) Subjective Subjective Well. No new events. Still with some chest pain but overall improved. Objective Data Objective Data Vital Signs: Vital Signs Temp Pulse Resp BP Pulse Ox O2 Del Method O2 Flow Rate 36.1 C L 72 16 117/79 97 Room Air 2 08/27/24 08:00 08/27/24 08:00 08/27/24 08:00 08/27/24 08:00 08/27/24 08:00 08/27/24 08:00 08/26/24 08:40 Oxygen Flow Rate (L/min) 2 Oxygen Delivery Method Room Air Weight: 94.2 kg Body Mass Index (BMI) 32.5 Intake & Output: Intake and Output for Last 24 Hours 08/25/24 08/26/24 08/27/24 23:59 23:59 23:59 Intake Total 67.5 / 67.5 1078.6 / 1078.6 Balance 67.5 / 67.5 1078.6 / 1078.6 Lab / Micro Data 08/26/24 04:28 08/26/24 04:28 Labs: Laboratory Results - last 24 hr 08/26/24 10:14: APTT 28.9 Radiography Diagnostic Testing: Radiology Impression Echocardiogram 08/25/24 17:32 Interpretation Summary The estimated ejection fraction is 50-55 %. Moderate assymetric septal hypertrophy. Mild (1+) mitral valve insufficiency. Mild focal aortic valve calcification. Mild (1+) aortic valve insufficiency. The study was technically difficult. Contrast injection was performed. Ordering Physician: Anum Dove Referring Physician: Rocio Jimenez Performed By: Luz Elena Olvera RDCS Rhythm Strip Rhythm Strip: Sinus Rhythm Rate: 77 Ectopy: None Physical Exam Const alert and no apparent distress HEENT head/scalp atraumatic and moist oral mucous membranes Neuro Neuro Narrative: Up ambulating in his room without difficulty. Assessment & Plan Assessment/Plan (1) Chest pain: PLAN: Plan NSTEMI, suspect type I * troponins up to 1195 * Left heart catheterization showed patent 70 venous graft to the RCA and occluded sidebranch of the obtuse marginal with a jump graft. [place] left circumflex has a high-grade in-stent restenosis distally and moderate disease more proximally. Cardiology recommending aggressive medical care at this time. * continue ASA, clopidogrel. Nitropaste added well as low-dose rosuvastatin. * Echo: Shows an EF of 50 to 55%. Moderate asymmetric septal hypertrophy. * DW Dr. Mccoy, he recommends adding Imdur. Will start at 30 mg/d given low-end of normal BP. DC home.
--- NOTE | 2024-08-27 12:06 | PCM.DC.SUM ---
Providers Date of Admission: 08/25/24 Primary Care Physician: ALYSA Bill Consultations 08/25/24 17:32 Consult: Cardiology Routine Consulting Provider: Rayo Hawk Reason for Consult: Chest Pain EMERGENT Consult: No MD Notified: Yes Date Notified: 08/25/24 Time Notified: 16:51 Method of Notification: ED Physician Initiated Reason For Visit: CHEST PAIN Diagnosis Discharge Diagnosis (1) Chest pain: Status: Resolved Code(s): R07.9 - Chest pain, unspecified Plan NSTEMI, suspect type I troponins up to 1195 Left heart catheterization showed patent 70 venous graft to the RCA and occluded sidebranch of the obtuse marginal with a jump graft. [place] left circumflex has a high-grade in-stent restenosis distally and moderate disease more proximally. Cardiology recommending aggressive medical care at this time. continue ASA, clopidogrel. Nitropaste added well as low-dose rosuvastatin. Echo: Shows an EF of 50 to 55%. Moderate asymmetric septal hypertrophy. DW Dr. Mccoy, he recommends adding Imdur. Will start at 30 mg/d given low-end of normal BP. DC home. Medications at Discharge Home Medications aspirin 81 mg tablet,delayed release (Adult Low Dose Aspirin) 81 mg PO DAILY [facility] 01/29/21 magnesium oxide 400 mg PO QHS supplement 03/10/22 clopidogrel 75 mg tablet (Plavix) 75 mg PO QDAY anti platelet #90 tabs 08/17/23 lisinopril 2.5 mg tablet 2.5 mg PO QHS bp #90 tabs 08/17/23 cholecalciferol (vitamin D3) 100 mcg (4,000 unit) tablet 100 mcg PO DAILY 07/22/24 rosuvastatin 5 mg tablet 5 mg PO DAILY 08/25/24 isosorbide mononitrate 30 mg tablet,extended release 24 hr 30 mg PO DAILY #30 tabs 08/27/24 Hospital Course Operations None Procedures 2-D Echocardiogram and Cardiac catheterization Summary of Care Provided Minutes Spent on Discharge: 40 Hospital Course: Patient presents with chest pain. Patient had cardiac catheterization that showed mild calcifications in the left main, mid LAD was occluded circumflex artery was previously stented with in-stent stenosis of 60%. Patient previously stented area of in-stent stenosis of 90% at the trifurcation involving the ostium of the branch of the obtuse marginal vessel. Right coronary artery was previously stented and subtotally occluded. Grafts of the saphenous vein graft to the RPDA was patent. Cardiology recommended aggressive medical management. I discussed the case with Dr. Mccoy, who recommended Imdur. Will start the patient on 30 mg of Imdur. Patient has a follow-up ointment with Dr. Read on 10/11.. Patient advised to return if he is feeling worse. Weight / BMI Weight Weight: 94.2 kg Body Mass Index (BMI) 32.5 ABG / Lab / Microbiology Data 08/26/24 04:28 08/26/24 04:28 Radiography Diagnostic Testing: Radiology Impression Echocardiogram 08/25/24 17:32 Interpretation Summary The estimated ejection fraction is 50-55 %. Moderate assymetric septal hypertrophy. Mild (1+) mitral valve insufficiency. Mild focal aortic valve calcification. Mild (1+) aortic valve insufficiency. The study was technically difficult. Contrast injection was performed. Ordering Physician: Anum Dove Referring Physician: Rocio Jimenez Performed By: Luz Elena Olvera ZURI D/C Instructions Discharge Diet: Low fat / Low cholesterol Meaningful Use Info Meaningful Use Meaningful Use Diagnoses (Choose all that apply): AMI AMI/Post PCI/Angioplasty Aspirin given w/in 24hrs of arrival?: Yes ASA at discharge?: Yes Statins at discharge?: Yes [place]/ARB at discharge?: Yes Beta Misa at discharge?: No Reason Beta Misa not ordered:: Hypotension Done w/ Acute MS measure.: Yes Documented LVEF (%): 50 Ischemic Stroke Statin Dosing Therapy Reference: STATIN DOSE THERAPY REFERENCE: * Patients > 75 years receive moderate or high dose statin therapy. * Patients 75 years or YOUNGER should receive HIGH intensity statin dose unless contraindicated. You will be required to document reason for non-treatment if statin daily dose does not meet guidelines. HIGH DOSE STATIN THERAPY DAILY Atorvastatin > than or = to 40 mg Rosuvastatin > than or = to 20 mg Amlodipine + Atorvastatin > than or = to 2.5/40 mg Ezetimibe + Simvastatin 10/80 mg Simvastatin 80mg Discharge Plan Admission Admit Date/Time: 08/25/24 16:27 Primary Reason for Your Visit: myocardial infarction Attending Provider: Shahid Ibrahim Primary Care Provider: Carlos Finley Consulting Providers: Rayo Hawk; Anum Dove Instructions Additional Instructions / Restrictions: You did have a heart attack. Heart cath that you had did not show any lesions that were amenable to new stents. Cardiology is recommending aggressive medical management that includes medications are already taking but the addition of Imdur. If you do have worsening chest pain in the future, notify your physician or return to the emergency room. Please follow-up with Dr. Read on your appointment on October 11 at 9:15. Discharge Orders/Prescriptions Prescriptions: New isosorbide mononitrate 30 mg tablet extended release 24 hr 30 mg PO DAILY Qty: 30 0RF Continued aspirin [Adult Low Dose Aspirin] 81 mg tablet,delayed release (DR/EC) 81 mg PO DAILY magnesium oxide 400 mg magnesium tablet 400 mg PO QHS clopidogrel [Plavix] 75 mg tablet 75 mg PO QDAY Qty: 90 3RF lisinopril 2.5 mg tablet 2.5 mg PO QHS Qty: 90 3RF cholecalciferol (vitamin D3) 100 mcg (4,000 unit) tablet 100 mcg PO DAILY rosuvastatin 5 mg tablet 5 mg PO DAILY Referrals / Follow Up: Carlos Finley PA [Primary Care Provider] - Disposition Disposition (needs filled in before D/C Order can be placed): Home, Self Care Charges/Coding Visit Charges Inpatient E&M: 83594 Disch Hosp >30min
== END 2024-08-27 12:52 | disposition home or self-care (01) | DRG 281 ==
LOC: ED 16:47 → PCU 17:04
PROVIDERS: Admitting Provider Internal Medicine; Emergency Provider Emergency Medicine; PCP Physician Assistant; Referring Provider Emergency Medicine
DX: I21.4 Non-ST elevation (NSTEMI) myocardial infarction (principal); T82.855A Stenosis of coronary artery stent, initial encounter; Z95.1 Presence of aortocoronary bypass graft; I10 Essential (primary) hypertension; E78.00 Pure hypercholesterolemia, unspecified; Z95.5 Presence of coronary angioplasty implant and graft; Z86.16 Personal history of COVID-19; Z79.82 Long term (current) use of aspirin; Z79.02 Long term (current) use of antithrombotics/antiplatelets; Z79.899 Other long term (current) drug therapy; X58.XXXA Exposure to other specified factors, initial encounter
CPT/HCPCS: 36415; 71046; 80048; 80061; 83880; 84484; 85025; 85379; 85610; 85730; 93005; 93306; 93455; 94002; 99152; 99153; 99285; C1760; J7030; J7040; Q9957; Q9967; A4216; C1769; C8929